=== PATIENT | female | born 1940 | race Caucasian/White ===

== ENCOUNTER 2018-09-08 10:43 | Emergency (ER) | payer MEDICARE ==
[2018-09-08] MEDS ORDERED: fentaNYL 100 MCG/2 ML SDV IVPUSH ONE (11:11)
[2018-09-08] MEDS ORDERED: Metoclopramide 10 MG/2 ML SDV IVPUSH ONE (11:11)
[2018-09-08] MEDS ORDERED: Sodium Chloride 0.9% 10 ML Syringe FLUSH PRN (11:11)
--- NOTE | 2018-09-08 11:39 | EDM.PDOC ---
ED HPI GENERAL MEDICAL PROBLEM - General Chief Complaint: Lower Extremity Injury/Pain Stated Complaint: FALL FROM WHEELCHAIR Time Seen by Provider: 09/08/18 11:05 Source of Information: Reports: Patient, Fpc Records History Limitations: Reports: Physical Impairment, Other (dementia at baseline ) - History of Present Illness INITIAL COMMENTS - FREE TEXT/NARRATIVE: 78-year-old female presents via EMS from [facility] this morning. Nursing reported a fall on due to attempt to self transfer from chair to recliner. Nursing staff states mechanical fall and patient is unable to bear weight and transfer self. Patient has not walked since fall on . Due to worsening swelling on her right ankle, pain in her right upper leg along with chest pain she is transverse to the ER this morning for evaluation. Patient unfortunately is a fairly poor historian is baseline multiple sclerosis and likely underlying dementia. She does answer yes or no questions appropriately but unable to give details regarding her fall or current concerns. Patient is asked to take a deep breath she does state she does have right-sided rib pain with deep respirations. Patient appears uncomfortable lying on the gurney. Bruising noted to the right lateral forehead , right anterior chest, right anterior abdomen, pelvis, thigh and right ankle swelling noted on cursory exam at bedside. - Related Data Allergies Allergy/AdvReac Type Severity Reaction Status Date / Time carbamazepine [From Tegretol] AdvReac Other Verified 09/08/18 10:59 codeine AdvReac Other Verified 09/08/18 10:59 valproic acid [From Depakene] AdvReac Other Verified 09/08/18 10:59 Home Meds: Home Meds Acetaminophen [Tylenol Arthritis Pain] 650 mg PO Q6HR 09/08/18 [History] Acetaminophen/HYDROcodone [Converse 325-5 MG] 1 tab PO Q6H PRN 2 Days #20 tab 09/08 [Rx] Alum Hydrox/Mag Hydrox/Simeth [Maalox Advanced] 30 ml PO ASDIRECTED PRN [History] Aspirin [Halfprin] 81 mg PO DAILY 09/08/18 [History] Baclofen 10 mg PO TID 09/08/18 [History] Bisacodyl [Gentle Laxative] 10 mg RC ASDIRECTED PRN 09/08/18 [History] Calcium Carbonate/Vitamin D3 [Calcium Carbonate/Vitamin D 600 MG-200 Unit] 1 tab PO DAILY 09/08/18 [History] Citalopram Hydrobromide [Celexa] 20 mg PO DAILY 09/08/18 [History] Dextromethorphan/guaiFENesin [Robitussin DM] 10 ml PO ASDIRECTED PRN 09/08/18 [ History] Docusate Sodium 100 mg PO DAILY 09/08/18 [History] Lisinopril 5 mg PO DAILY 09/08/18 [History] Loperamide [Imodium] 4 mg PO TID PRN 09/08/18 [History] Lutein/Minerals/Vit A,C & E [Ocuvite] 1 tab PO BID 09/08/18 [History] Magnesium Hydroxide [Milk of Magnesia] 30 ml PO TID PRN 09/08/18 [History] Multivitamin with Minerals [Multiple Vitamin] 1 tab PO DAILY 09/08/18 [History] Oxybutynin Chloride [Ditropan Xl] 1 mg PO DAILY 09/08/18 [History] Polyethylene Glycol 3350 17 gm PO DAILY 09/08/18 [History] Simvastatin 10 mg PO BEDTIME 09/08/18 [History] Past Medical History HEENT History: Reports: Impaired Vision Cardiovascular History: Reports: Hypertension Genitourinary History: Reports: Urinary Incontinence ARTILLERY SPECIALIST History: Reports: Musculoskeletal History: Reports: Other (See Below) Other Musculoskeletal History: . Neurological History: Reports: MS, Other (See Below) (non ambulatory) Psychiatric History: Reports: Anxiety, Depression - Past Surgical History Cardiovascular Surgical History: Reports: None GI Surgical History: Reports: Appendectomy Musculoskeletal Surgical History: Reports: None Dermatological Surgical History: Reports: None Social & Family History - Tobacco Use Smoking Status *Q: Former Smoker Used Tobacco, but Quit: No Month/Year Tobacco Last Used: 1999 Second Hand Smoke Exposure: No - Caffeine Use Caffeine Use: Reports: Coffee - Recreational Drug Use Recreational Drug Use: No Review of Systems - Review of Systems Review Of Systems: Unable To Obtain (due to patient dementia and able to answer yes and no questions unable to given details and unsure validity of responses) ED EXAM, GENERAL - Physical Exam Exam: See Below Exam Limited By: Physical Impairment (Dementia but follows simple commands) General Appearance: Alert, WD/WN, Mild Distress, Other (GCS 15 ) Eye Exam: Bilateral Eye: EOMI, PERRL Ears: Normal External Exam, Normal Canal, Hearing Grossly Normal, Normal TMs Ear Exam: Bilateral Ear: Auricle Normal, Canal Normal, TM normal Nose: Normal Inspection, Normal Mucosa, No Blood Throat/Mouth: Normal Inspection (dry mouth ), Normal Lips, Normal Teeth, Normal Gums, Normal Oropharynx, Normal Voice, No Airway Compromise Head: Normocephalic (right lateral forehead contusion without hematoma) Neck: Normal Inspection, Supple, Non-Tender, Limited Range of Motion (denies pain but baseline limited ROM noted) Respiratory/Chest: Decreased Breath Sounds (splinting respirations noted), Rhonchi, Accessory Muscle Use, Splinting, Other (significnat pain to palpation right upper chest wall, implant contracture noted. Unable to palpation ribs or intercostal muscle in area for discomfort. Bruising noted. ) Cardiovascular: Normal Peripheral Pulses, Regular Rate, Rhythm, Systolic Murmur GI/Abdominal: Normal Bowel Sounds, Soft, No Distention, Tender (right upper. mid and lower abdomen) Back Exam: Normal Inspection, Decreased Range of Motion (at baseline), Paraspinal Tenderness. No: Vertebral Tenderness Extremities: Normal Range of Motion, Non-Tender, No Pedal Edema, Normal Capillary Refill, Joint Swelling (right ankle with bruising), Leg Pain ( bruising and pain right pelvis, proximal and distal femur ), Limited Range of Motion (patient able to raise each leg of the bed inches. ). No: Arm Pain Neurological: Alert, Oriented, CN II-XII Intact, No Motor/Sensory Deficits (no obvious focal sensory deficits and motor limited by pain ), Memory Loss Remote Events, Memory Loss Recent Events, Abnormal Gait (Lying on melyssa lift chair, question baseline ambulation status). No: Sensory/Motor Deficit Psychiatric: Normal Mood, Flat Affect, Other (dementia but attempts to smile ) Skin Exam: Warm, Dry, Intact, Normal Color ED TRAUMA EXTREMITY PROCEDURES - Splinting Right Lower Extremity Pre-Procedure NV Status: Normal Post-Procedure NV Status: Normal Splint Design: Stirrup Applied & Form Fitted By: Provider, Nurse Provider Post-Splint Application NV Check: NV Status Normal, Good Position Complications: No EKG INTERPRETATION EKG Date: 09/08/18 Time: 13:22 Rhythm: Other (PVCs noted every 4th beat) Rate (Beats/Min): 78 [place]: Normal P-Wave: Present QRS: Normal ST-T: Normal QT: Normal Comparison: NA - No Prior EKG (Artifact at baseline Multiple PVCs noted every 4th beat) Course - Vital Signs Last Recorded V/S: Last Vital Signs Temp 36.9 C 09/08/18 10:54 Pulse 79 09/08/18 13:55 Resp 24 H 09/08/18 10:54 BP 119/46 L 09/08/18 13:55 Pulse Ox 92 L 09/08/18 13:55 - Orders/Labs/Meds Orders: Active Orders 24 hr Category Date Time Status EKG Documentation Completion [RC] ASDIRECTED Care 09/08/18 11:48 Active Insert Urinary Catheter [OM.PC] Q24H Care 09/08/18 12:00 Ordered Peripheral IV Care [RC] . DIRECTED Care 09/08/18 11:12 Active RT End Tidal CO2 Monitoring [RC] ASDIRECTED Care 09/08/18 11:11 Active Splinting [RC] ASDIRECTED Care 09/08/18 13:01 Active Urinary Catheter Assessment [RC] ASDIRECTED Care 09/08/18 11:51 Active Vital Signs [RC] PFP Care 09/08/18 13:24 Active CULTURE URINE [RM] Stat Lab 09/08/18 11:48 Ordered UA W/MICROSCOPIC [URIN] Stat Lab 09/08/18 11:48 Ordered Peripheral IV Insertion Adult [OM.PC] Urgent Oth 09/08/18 11:11 Ordered EKG 12 Lead [EK] Routine Ther 09/08/18 11:48 Ordered Labs: Laboratory Tests 09/08/18 09/08/18 09/08/18 Range/Units 11:34 11:34 11:51 WBC 9.4 (4.5-11.0) K/uL RBC 4.35 (3.30-5.50) M/uL Hgb 12.1 (12.0-15.0) g/dL Hct 38.3 (36.0-48.0) % MCV 88 (80-98) fL MCH 28 (27-31) pg MCHC 32 (32-36) % Plt Count 154 (150-400) K/uL Neut % (Auto) 75 H (36-66) % Lymph % (Auto) 11 L (24-44) % [place] % (Auto) 11 H (2-6) % Eos % (Auto) 2 (2-4) % Baso % (Auto) 0 (0-1) % Sodium 142 (140-148) mmol/L Potassium 3.9 (3.6-5.2) mmol/L Chloride 105 (100-108) mmol/L Carbon Dioxide 28 (21-32) mmol/L Anion Gap 9.2 (5.0-14.0) mmol/L BUN 22 H (7-18) mg/dL Creatinine 0.8 (0.6-1.0) mg/dL Est Cr Clr Drug Dosing 43.03 mL/min Estimated GFR (MDRD) > 60 (>60) Glucose 120 H (74-106) mg/dL Calcium 9.2 (8.5-10.1) mg/dL Magnesium 1.9 (1.8-2.4) mg/dL Total Bilirubin 0.9 D (0.2-1.0) mg/dL AST 18 (15-37) U/L ALT 23 (12-78) U/L Alkaline Phosphatase 90 (46-116) U/L Creatine Kinase 44 (26-192) U/L Total Protein 7.0 (6.4-8.2) g/dL Albumin 3.2 L (3.4-5.0) g/dL Globulin 3.8 H (2.3-3.5) g/dL Albumin/Globulin Ratio 0.8 L (1.2-2.2) Meds: Medications Discontinued Medications Generic Name Dose Route Start Last Admin Trade Name Freq PRN Reason Stop Dose Admin Hydrocodone Bitart/Acetaminophen 1 tab 09/08/18 12:51 09/08/18 13:11 Converse 325-5 Mg PO 09/08/18 12:52 1 tab ONETIME ONE Administration Fentanyl 25 mcg 09/08/18 11:11 09/08/18 11:36 Sublimaze IVPUSH 09/08/18 11:12 25 mcg ONETIME ONE Administration Sodium Chloride 1,000 mls @ 500 mls/hr 09/08/18 12:00 09/08/18 12:16 Normal Saline IV 500 mls/hr ASDIRECTED YEIMI Administration Metoclopramide HCl 10 mg 09/08/18 11:11 09/08/18 11:36 Reglan IVPUSH 09/08/18 11:12 10 mg ONETIME ONE Administration Sodium Chloride 10 ml 09/08/18 11:11 09/08/18 11:32 Saline Flush FLUSH 10 ml ASDIRECTED PRN Administration Keep Vein Open - Radiology Interpretation Free Text/Narrative:: CXR PA/LAT: NO acute cardiopulmonary findings noted. Mild cardiomegaly and right hemidiaphragm elevation. Pelvis XR: degenerative changes in the lower lumbar spine and both hips are identified. No acute fracture or subluxation is identified. Right Hip/Pelvis XR: Femoral head is seated within the acetabulum. Degenerative changes the right hip are identified. No acute fracture or subluxation or dislocation is identified. Right Knee XR: overlying material obscures bony detail. Moderate narrowing of the medial compartment is identified. No fracture or subluxation is identified. Right Ankle XR: Fracture of the distal fibula is identified. Only mildly displaced. Soft tissue swelling is identified bilaterally. Osteopenia degenerative changes are identified. Small plantar calcaneal spur is noted. - Re-Assessments/Exams Free Text/Narrative Re-Assessment/Exam: Family members were updated regarding the x-ray findings. She does have a mildly displaced right distal fibula fracture. I explained this will be splinted and may need follow-up with orthopedist in 2 weeks for cast placement. Immobilization with splint/cast will likely be definitive care for this type of fracture and baseline mobility issues. Chest x-ray is ordered and pending. Laboratory studies reveal no acute concerning findings. Patient will be allowed to eat family did bring a picnic lunch which she can enjoy. 09/08/18 12:49 Departure - Departure Time of Disposition: 14:39 Disposition: DC/Tfer to [employer] [facility] Condition: Good Clinical Impression: Closed right ankle fracture, Fall, Multiple contusions, Contusion of thigh, Contusion of hip, Fracture of fibula, Fracture of ankle - Discharge Information Prescriptions: Acetaminophen/HYDROcodone [Converse 325-5 MG] 1 tab PO Q6H PRN 2 Days #20 tab PRN Reason: Pain (Severe 7-10) Instructions: Contusion, Ankle Fracture, Cast or Splint Care, Adult Referrals: PCP,None [Primary Care Provider] - Gurinder Butler MD [Physician] - 2 Weeks (Call for appointment in 7-14 days regarding cast placement to allow for healing of distal fibula fracture. ) Forms: ED Department Discharge Additional Instructions: 1. Tylenol 500-1000mg every 6-8hours for mild to moderate pain (per assisted living protocol). 2. Naproxen 500mg with food for inflammation pain and swelling if ok with current medications and PCP (may delay bone healing) 3. Converse 1 tablet every 6 hours as needed for moderate to severe pain. 4. Foot care and ensure no pressure sore with splint placement with repositioning as needed. 5. Call PCP for recheck in then next 1-2 weeks sooner if additional symptoms or concerns. 6. Call Orthopedic clinic for recheck in 1-2 weeks to discuss cast placement for distal fibula fracture. 7. Limited (toe touch) weight bearing only as needed to prevent additional falls. 8. Keep splint clean and dry. Wrap with plastic for bathing or perform bed baths per policy. 9. Keep Right leg elevated above heart as much as possible, avoid foot dangling. 10. Encourage deep breathing and coughing which will decrease risk of pneumonia due to chest wall injury. - Problem List & Annotations (1) Closed right ankle fracture SNOMED Code(s): 86528896 Code(s): S82.891A - OTH FRACTURE OF RIGHT LOWER LEG, INIT FOR CLOS FX Status: Acute (2) Contusion of hip SNOMED Code(s): 50522017 Code(s): S70.00XA - CONTUSION OF UNSPECIFIED HIP, INITIAL ENCOUNTER Status : Acute (3) Contusion of thigh SNOMED Code(s): 89333170 Code(s): S70.10XA - CONTUSION OF UNSPECIFIED THIGH, INITIAL ENCOUNTER Status: Acute (4) Fall SNOMED Code(s): 5912578, 982597801 Code(s): W19.XXXA - UNSPECIFIED FALL, INITIAL ENCOUNTER Status: Acute (5) Fracture of ankle SNOMED Code(s): 84311441 Code(s): S82.899A - OTH FRACTURE OF UNSP LOWER LEG, INIT FOR CLOS FX Status : Acute (6) Fracture of fibula SNOMED Code(s): 90095338 Code(s): S82.409A - UNSP FRACTURE OF SHAFT OF UNSP FIBULA, INIT FOR CLOS FX Status: Acute (7) Multiple contusions SNOMED Code(s): 696197649 Code(s): T07.XXXA - UNSPECIFIED MULTIPLE INJURIES, INITIAL ENCOUNTER Status : Acute - My Orders Last 24 Hours: My Active Orders 09/08/18 11:11 RT End Tidal CO2 Monitoring [RC] ASDIRECTED Peripheral IV Insertion Adult [OM.PC] Urgent 09/08/18 11:12 Peripheral IV Care [RC] . DIRECTED 09/08/18 11:48 EKG Documentation Completion [RC] ASDIRECTED CULTURE URINE [RM] Stat UA W/MICROSCOPIC [URIN] Stat EKG 12 Lead [EK] Routine 09/08/18 11:51 Urinary Catheter Assessment [RC] ASDIRECTED 09/08/18 12:00 Insert Urinary Catheter [OM.PC] Q24H 09/08/18 13:01 Splinting [RC] ASDIRECTED 09/08/18 13:24 Vital Signs [RC] PFP - Assessment/Plan Last 24 Hours: My Active Orders 09/08/18 11:11 RT End Tidal CO2 Monitoring [RC] ASDIRECTED Peripheral IV Insertion Adult [OM.PC] Urgent 09/08/18 11:12 Peripheral IV Care [RC] . DIRECTED 09/08/18 11:48 EKG Documentation Completion [RC] ASDIRECTED CULTURE URINE [RM] Stat UA W/MICROSCOPIC [URIN] Stat EKG 12 Lead [EK] Routine 09/08/18 11:51 Urinary Catheter Assessment [RC] ASDIRECTED 09/08/18 12:00 Insert Urinary Catheter [OM.PC] Q24H 09/08/18 13:01 Splinting [RC] ASDIRECTED 09/08/18 13:24 Vital Signs [RC] PFP Plan: 1. Tylenol 500-1000mg every 6-8hours for mild to moderate pain (per assisted living protocol). 2. Naproxen 500mg with food for inflammation pain and swelling if ok with current medications and PCP (may delay bone healing) 3. Converse 1 tablet every 6 hours as needed for moderate to severe pain. 4. Foot care and ensure no pressure sore with splint placement with repositioning as needed. 5. Call PCP for recheck in then next 1-2 weeks sooner if additional symptoms or concerns. 6. Call Orthopedic clinic for recheck in 1-2 weeks to discuss cast placement for distal fibula fracture. 7. Limited (toe touch) weight bearing only as needed to prevent additional falls. 8. Keep splint clean and dry. Wrap with plastic for bathing or perform bed baths per policy. 9. Keep Right leg elevated above heart as much as possible, avoid foot dangling. 10. Encourage deep breathing and coughing which will decrease risk of pneumonia due to chest wall injury.
[2018-09-08] MEDS ORDERED: Sodium Chloride 0.9% 1,000 ML IV SCH (12:00)
[2018-09-08] MEDS ORDERED: Acetaminophen/HYDROcodone 325-5 MG Tab PO ONE (12:51)
--- NOTE | 2018-09-08 15:45 | CRLCR ---
Indication: Fall last . Technique: Two views of the right hip were obtained. Comparison: None Findings: The femoral head is seated within the acetabulum. Degenerative changes of the right hip are identified. No acute fracture or subluxation is identified. Impression: Degenerative change. Dictated by Stacey Garcia MD @ Sep 08 2018 12:17PM Signed by Dr. Stacey Garcia @ Sep 08 2018 12:18PM
--- NOTE | 2018-09-08 15:45 | CRLCR ---
Indication: Right-sided chest pain after falling 2 days ago. Technique: PA and lateral views the chest were obtained. Comparison: None Findings: The heart is borderline in size. The right hemidiaphragm is elevated. Bilateral calcified breast implants are identified. No infiltrate or pneumothorax is identified. Impression: No acute cardiopulmonary process. Dictated by Stacey Garcia MD @ Sep 08 2018 1:23PM Signed by Dr. Stacey Garcia @ Sep 08 2018 1:24PM
--- NOTE | 2018-09-08 15:45 | CRLCR ---
Indication: Fell last . Technique: A single AP view of the right knee was obtained. Comparison: None Findings: Overlying material obscures bony detail. Moderate narrowing of the medial compartment is identified. No fracture or subluxation is identified. Impression: No acute fracture. Dictated by Stacey Garcia MD @ Sep 08 2018 12:13PM Signed by Dr. Stacey Garcia @ Sep 08 2018 12:14PM
--- NOTE | 2018-09-08 15:45 | CRLCR ---
Indication: Right ankle pain. Status post fall. Technique: Three views of the right ankle were obtained. Comparison: None Findings: A fracture of the distal fibula is identified. This is only mildly displaced. Soft tissue swelling is identified laterally. Osteopenia and degenerative changes are identified. A small plantar calcaneal spur is identified. Impression: Distal fibular fracture. Dictated by Stacey Garcia MD @ Sep 08 2018 12:16PM Signed by Dr. Stacey Garcia @ Sep 08 2018 12:17PM
--- NOTE | 2018-09-08 15:45 | CRLCR ---
Indication: Fell last . Right hip pain. Technique: An AP view of the pelvis was obtained. Comparison: None Findings: Degenerative changes of the lower lumbar spine and both hips are identified. No acute fracture or subluxation is identified. Impression: Degenerative change. Dictated by Stacey Garcia MD @ Sep 08 2018 12:14PM Signed by Dr. Stacey Garcia @ Sep 08 2018 12:15PM
== END 2018-09-08 15:57 ==
LOC: JP.ED 10:43
DX: S82.831A Other fracture of upper and lower end of right fibula, initial encounter for closed fracture (principal); S70.01XA Contusion of right hip, initial encounter; S00.83XA Contusion of other part of head, initial encounter; S20.211A Contusion of right front wall of thorax, initial encounter; I10 Essential (primary) hypertension; S70.11XA Contusion of right thigh, initial encounter; F41.9 Anxiety disorder, unspecified; F32.9 Major depressive disorder, single episode, unspecified; Z87.891 Personal history of nicotine dependence; Z88.5 Allergy status to narcotic agent; Z88.8 Allergy status to other drugs, medicaments and biological substances; Z79.899 Other long term (current) drug therapy; W18.39XA Other fall on same level, initial encounter
CPT/HCPCS: 29515; 36415; 71046; 72170; 73502; 73560; 73610; 80053; 82550; 83735; 85025; 93005; 96361; 96374; 96375; 99285; A9270; J2765; J3010; J7030

== ENCOUNTER 2019-06-15 05:04 | Emergency (ER) | payer MEDICARE ==
--- NOTE | 2019-06-15 05:37 | EDM.PDOC ---
ED HPI GENERAL MEDICAL PROBLEM - General Chief Complaint: Head Injury Stated Complaint: ACCIDENT VIA [facility] Time Seen by Provider: 06/15/19 05:20 Source of Information: Reports: EMS, [facility] Records History Limitations: Reports: No Limitations - History of Present Illness INITIAL COMMENTS - FREE TEXT/NARRATIVE: 79-year-old female who was sitting in her recliner when she stumbled forward striking her forehead on the floor. She was found in a pool of blood on the floor, no specific complaints. It was felt that she was on the floor for approximately 10 minutes. No significant confusion, but denies any headache and just mild posterior neck pain, she is not on anticoagulants. There appeared to be a fairly large amount of blood on the floor, her hair was matted with blood and it was difficult to see where the injury was. She was dressed with bandages and sent into the emergency room. 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) Right Upper Head Pain Score (Numeric/FACES): 6 - Related Data Allergies Allergy/AdvReac Type Severity Reaction Status Date / Time carbamazepine [From Tegretol] AdvReac Other Verified 06/15/19 05:41 codeine AdvReac Other Verified 06/15/19 05:41 valproic acid [From Depakene] AdvReac Other Verified 06/15/19 05:41 Home Meds: Home Meds Acetaminophen [Tylenol Arthritis Pain] 650 mg PO Q6HR 09/08/18 [History] Alum Hydrox/Mag Hydrox/Simeth [Maalox Advanced] 30 ml PO ASDIRECTED PRN [History] Aspirin [Halfprin] 81 mg PO DAILY 09/08/18 [History] Baclofen 10 mg PO TID 09/08/18 [History] Bisacodyl [Gentle Laxative] 10 mg RC ASDIRECTED PRN 09/08/18 [History] Calcium Carbonate/Vitamin D3 [Calcium Carbonate/Vitamin D 600 MG-200 Unit] 1 tab PO DAILY 09/08/18 [History] Citalopram Hydrobromide [Celexa] 20 mg PO DAILY 09/08/18 [History] Dextromethorphan/guaiFENesin [Robitussin DM] 10 ml PO ASDIRECTED PRN 09/08/18 [ History] Docusate Sodium 100 mg PO DAILY 09/08/18 [History] Loperamide [Imodium] 4 mg PO TID PRN 09/08/18 [History] Lutein/Minerals/Vit A,C & E [Ocuvite] 1 tab PO BID 09/08/18 [History] Magnesium Hydroxide [Milk of Magnesia] 30 ml PO TID PRN 09/08/18 [History] Multivitamin with Minerals [Multiple Vitamin] 1 tab PO DAILY 09/08/18 [History] Oxybutynin Chloride [Ditropan Xl] 5 mg PO DAILY 09/08/18 [History] Simvastatin 10 mg PO BEDTIME 09/08/18 [History] lisinopriL [Lisinopril] 5 mg PO DAILY 09/08/18 [History] polyethylene glycoL 3350 [Polyethylene Glycol 3350] 17 gm PO DAILY 09/08/18 [ History] Albuterol/Ipratropium [DuoNeb 3.0-0.5 MG/3 ML] 3 ml INH Q6HR PRN 06/15/19 [ History] Past Medical History HEENT History: Reports: Impaired Vision Cardiovascular History: Reports: Hypertension Respiratory History: Reports: None Gastrointestinal History: Reports: None Genitourinary History: Reports: Urinary Incontinence 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: Musculoskeletal History: Reports: Fracture, Other (See Below) Other Musculoskeletal History: right ankle fx 09/08/18 Neurological History: Reports: MS, Other (See Below) Psychiatric History: Reports: Anxiety, Depression Endocrine/Metabolic History: Reports: None Hematologic History: Reports: None Immunologic History: Reports: None Oncologic (Cancer) History: Reports: None - Past Surgical History Cardiovascular Surgical History: Reports: None GI Surgical History: Reports: Appendectomy Musculoskeletal Surgical History: Reports: None Dermatological Surgical History: Reports: None Social & Family History - Caffeine Use Caffeine Use: Reports: Coffee ED ROS GENERAL - Review of Systems Review Of Systems: See Below Constitutional: Denies: Fever, Chills HEENT: Denies: Vision Change Respiratory: Denies: Shortness of Breath Cardiovascular: Denies: Chest Pain GI/Abdominal: Denies: Nausea, Vomiting Musculoskeletal: Reports: Other (Posterior neck pain) Skin: Reports: Other (There is an obvious laceration or injury to the scalp) Neurological: Denies: Headache ED EXAM, HEAD INJURY - Physical Exam Exam: See Below Exam Limited By: No Limitations General Appearance: Alert, No Apparent Distress Head: Other (The top of her head and upper hairline and forehead was entirely covered with a large clot of blood underneath bandages. After this was slowly cleaned and her scalp was cleaned, a small puncture wound with a avulsion and maceration was found on the upper anterior forehead, total wound was about 1 x 2 cm there was no active bleeding) Nexus Criteria: Posterior, Midline Cervical Tenderness Eyes: Bilateral Eye: EOMI, PERRL Neck: Other (Minimal posterior tenderness to palpation, no focal tenderness) Respiratory: No Respiratory Distress Cardiovascular: Regular Rate, Rhythm Neurologic: No Motor/Sensory Deficits, Normal Mood/Affect - [place] Coma Score Best Eye Response (Bautista): (4) Open Spontaneously Best Verbal Response (Pansey): (5) Oriented Best Motor Response (Pansey): (6) Obeys Commands Course - Vital Signs Last Recorded V/S: Last Vital Signs Temp 96.1 F L 06/15/19 05:17 Pulse 77 06/15/19 06:33 Resp 22 H 06/15/19 06:33 BP 140/73 06/15/19 06:33 Pulse Ox 94 L 06/15/19 06:33 - Orders/Labs/Meds Labs: Laboratory Tests 06/15/19 Range/Units 05:46 WBC 11.6 H (4.5-11.0) K/uL RBC 4.65 (3.30-5.50) M/uL Hgb 12.4 (12.0-15.0) g/dL Hct 40.7 (36.0-48.0) % MCV 88 (80-98) fL MCH 27 (27-31) pg MCHC 31 L (32-36) % Plt Count 164 (150-400) K/uL Neut % (Auto) 83 H (36-66) % Lymph % (Auto) 10 L (24-44) % [place] % (Auto) 6 (2-6) % Eos % (Auto) 1 L (2-4) % Baso % (Auto) 0 (0-1) % Meds: Medications Discontinued Medications Generic Name Dose Route Start Last Admin Trade Name Freq PRN Reason Stop Dose Admin Bacitracin 1 dose 06/15/19 05:38 06/15/19 06:34 Bacitracin Oint 1 Gm TOP 06/15/19 05:39 1 dose ONETIME ONE Administration - Re-Assessments/Exams Free Text/Narrative Re-Assessment/Exam: 06/15/19 06:17 After extensive cleaning of his scalp and hair, a small macerated puncture wound was found on the upper anterior middle forehead. There was really no laceration to repair. Patient was sent back for a head and cervical spine CT scan. These were both without contrast. 06/15/19 06:50 Hemoglobin was normal, head CT was negative and cervical spine negative. A nice wraparound dressing was applied to the forehead which should be kept on for the next 10 hours. The wound should be kept covered and clean while healing. Departure - Departure Time of Disposition: 08:38 Disposition: DC/[facility] to [facility] Clinical Impression: Laceration of skin of scalp Qualifiers: Encounter type: initial encounter Qualified Code(s): S01.01XA - Laceration without foreign body of scalp, initial encounter - Discharge Information Instructions: Head Injury, Adult, [id number] Referrals: PCP,None [Primary Care Provider] - Forms: ED Department Discharge Care Plan Goals: Keep wound covered and clean while healing. Tylenol for aches and pains, cool compresses to sore areas may be helpful as well. Return if concerns. Sepsis Event Note - Evaluation Sepsis Screening Result: No Definite Risk - Focused Exam Date Exam was Performed: 06/17/19 Time Exam was Performed: 08:30
[2019-06-15] MEDS ORDERED: Bacitracin Oint 1 GM U/D Packet TOP ONE (05:38)
--- NOTE | 2019-06-15 06:39 | CRLCT ---
INDICATION: Fall TECHNIQUE: CT head without contrast. COMPARISON: FINDINGS: CSF spaces: Within normal limits for age. Brain parenchyma: The webb-white differentiation is normal. No sign of mass, hemorrhage, or midline shift. Periventricular white matter changes consistent with chronic microvascular disease. Diffuse volume loss. Skull base and calvarium: The visualized paranasal sinuses and mastoid air cells demonstrate no acute or significant findings. The visualized orbits are grossly unremarkable. No skull fractures. Frontal scalp hematoma. IMPRESSION: Frontal scalp hematoma with no associated fractures or evidence of acute intracranial trauma. Periventricular white matter changes consistent with chronic microvascular disease. Diffuse volume loss. Dictated by Hemanth Martin MD @ 06/15/2019 6:37:37 AM Please note that all CT scans at this facility use dose modulation, iterative reconstruction, and/or weight-based dosing when appropriate to reduce radiation dose to as low as reasonably achievable. Dictated by: Hemanth Martin MD @ 06/15/2019 06:37:40 (Electronically Signed)
--- NOTE | 2019-06-15 06:46 | CRLCT ---
INDICATION: Fall TECHNIQUE: CT cervical spine without contrast. COMPARISON: None FINDINGS: Vertebral alignment: Alignment is normal. Vertebrae: There are no acute fractures. Compression deformities T3 and T4 most likely chronic. Discs and facet joints: Disc spaces and facets are within normal limits. Extraspinal findings: Prevertebral soft tissues, visualized airway, and visualized lungs are unremarkable. IMPRESSION: No evidence of acute cervical spine trauma. Dictated by Hemanth Martin MD @ 06/15/2019 6:45:17 AM Please note that all CT scans at this facility use dose modulation, iterative reconstruction, and/or weight-based dosing when appropriate to reduce radiation dose to as low as reasonably achievable. Dictated by: Hemanth Martin MD @ 06/15/2019 06:45:25 (Electronically Signed)
== END 2019-06-15 08:28 ==
LOC: JP.ED 05:04
DX: S01.01XA Laceration without foreign body of scalp, initial encounter (principal); I10 Essential (primary) hypertension; F41.9 Anxiety disorder, unspecified; F32.9 Major depressive disorder, single episode, unspecified; Z88.8 Allergy status to other drugs, medicaments and biological substances; Z88.5 Allergy status to narcotic agent; Z79.899 Other long term (current) drug therapy; Z79.82 Long term (current) use of aspirin; W08.XXXA Fall from other furniture, initial encounter
CPT/HCPCS: 36415; 70450; 72125; 85025; 99283; 99285-25

== ENCOUNTER 2019-08-13 17:58 | Emergency (ER) | payer MEDICARE ==
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
--- NOTE | 2019-08-13 19:37 | CRLCT ---
INDICATION: Fall, forehead injury and neck pain. TECHNIQUE: CT cervical spine without contrast. COMPARISON: Cervical spine CT 06/15/2019 FINDINGS: Vertebrae: Old-appearing compression fractures are redemonstrated at the T3 and T4 level which appear similar. There is a subacute compression type fracture of the T2 vertebral body with slight decrease in vertebral body height compared to the prior examination and increasing sclerosis. A subacute fracture is also identified at the body of the C2 vertebral body with a more coronal fracture plane. Fracture line has partially healed since the prior examination (current series 7, image 35; better seen on 06/15/2019 CT series 9, image 37). Age indeterminate (mild adjacent sclerosis; subacute?) compression type fracture of T5, partially included on the exam. Discs and facet joints: Multilevel facet hypertrophy without significant central spinal canal stenosis. Extraspinal findings: Mild mosaic attenuation pattern within the lungs. Atherosclerosis. IMPRESSION: 1. Subacute fracture of the C2 vertebral body showing partial interval healing compared to the prior examination. Alignment near anatomic. 2. Subacute compression type fracture of the T2 vertebral body showing mild increase in sclerosis and loss of height compared to the prior exam. 3. Old-appearing compression type fractures of T3 and T4 with more age-indeterminate compression fracture of the T5 vertebral body, question subacute. Discussed with Dr. Valdes at 1929 on 08/13/2019 Please note that all CT scans at this facility use dose modulation, iterative reconstruction, and/or weight-based dosing when appropriate to reduce radiation dose to as low as reasonably achievable. Dictated by Vega Garcia MD @ Aug 13 2019 7:11PM Signed by Dr. Vega Garcia @ Aug 13 2019 7:35PM
--- NOTE | 2019-08-13 19:39 | CRLCT ---
INDICATION: Fall, forehead injury TECHNIQUE: CT head without contrast. COMPARISON: Head CT 06/15/2019 FINDINGS: CSF spaces: Within normal limits for age. Brain parenchyma: Diffuse cerebral atrophy with extensive low-density in the deep white matter. Skull base and calvarium: The visualized paranasal sinuses and mastoid air cells demonstrate no acute or significant findings. The visualized orbits are grossly unremarkable. No skull fractures. Frontal scalp hematoma. Atherosclerosis. IMPRESSION: 1. Frontal scalp hematoma without calvarial fracture or intracranial bleed. 2. Cerebral atrophy with nonspecific white matter disease, likely microangiopathy. Please note that all CT scans at this facility use dose modulation, iterative reconstruction, and/or weight-based dosing when appropriate to reduce radiation dose to as low as reasonably achievable. Dictated by Vega Garcia MD @ Aug 13 2019 7:11PM Signed by Dr. Vega Garcia @ Aug 13 2019 7:37PM
[2019-08-13] MEDS ORDERED: Lidocaine 1% 20 ML MDV INJECT ONE (19:54)
[2019-08-13] MEDS ORDERED: Bacitracin Oint 1 GM U/D Packet TOP ONE (19:54)
== END 2019-08-13 21:51 | disposition home or self-care (01) ==
LOC: JP.ED 17:58
DX: S01.01XA Laceration without foreign body of scalp, initial encounter (principal); I10 Essential (primary) hypertension; F41.9 Anxiety disorder, unspecified; F32.9 Major depressive disorder, single episode, unspecified; Z88.5 Allergy status to narcotic agent; Z88.8 Allergy status to other drugs, medicaments and biological substances; Z79.82 Long term (current) use of aspirin; Z79.899 Other long term (current) drug therapy; G35 Multiple sclerosis; W06.XXXA Fall from bed, initial encounter
CPT/HCPCS: 12001; 12011; 51798; 70450; 72125; 99283; 99284; J2001

== ENCOUNTER 2020-02-08 17:16 | Inpatient (IN) | payer MEDICARE ==
[2020-02-08] MEDS ORDERED: Acetaminophen 325 MG Tab PO PRN ×3 (17:59→22:42)
--- NOTE | 2020-02-08 18:19 | EDM.PDOC ---
ED HPI GENERAL MEDICAL PROBLEM - General Chief Complaint: Respiratory Problem Stated Complaint: [facility] Time Seen by Provider: 02/08/20 17:58 Source of Information: Reports: RN Notes Reviewed, Other History Limitations: Reports: Combative/Threatening - History of Present Illness INITIAL COMMENTS - FREE TEXT/NARRATIVE: Patient has had high risk exposure in the senior care started complaining of shortness of breath today was tested for Covid on Monday however the results were not available to the senior care still pending. Patient is combative and not cooperative does have a history of multiple sclerosis has had issues with altered mental status in the past. She is found to be hypoxic O2 saturation around 86% refuses to wear pulse ox refuses to wear oxygen. Did discuss the case with her power of associate attorney they would like to have her be full code and do all life sustaining measures they felt it was okay to restrain her for pulse ox as well as medical treatment this is documented by 2 nurses and found in the nursing notes, sure when I asked her how she is feeling she states she feels fine does not want to be here and wants to go home is having no issues - Related Data Allergies Allergy/AdvReac Type Severity Reaction Status Date / Time carbamazepine [From Tegretol] AdvReac Unknown Other Verified 02/08/20 17:47 codeine AdvReac Unknown Other Verified 02/08/20 17:47 valproic acid [From Depakene] AdvReac Unknown Other Verified 02/08/20 17:47 Home Meds: Home Meds Acetaminophen [Tylenol Arthritis Pain] 650 mg PO Q6HR 09/08/18 [History] Alum Hydrox/Mag Hydrox/Simeth [Maalox Advanced] 30 ml PO ASDIRECTED PRN 09/08/18 [History] Aspirin [Halfprin] 81 mg PO DAILY 09/08/18 [History] Baclofen 10 mg PO TID 09/08/18 [History] Bisacodyl [Gentle Laxative] 10 mg RC ASDIRECTED PRN 09/08/18 [History] Calcium Carbonate/Vitamin D3 [Calcium Carbonate/Vitamin D 600 MG-200 Unit] 1 tab PO DAILY 09/08/18 [History] Dextromethorphan/guaiFENesin [Robitussin DM] 10 ml PO ASDIRECTED PRN 09/08/18 [History] Docusate Sodium 100 mg PO DAILY 09/08/18 [History] Loperamide [Imodium] 4 mg PO TID PRN 09/08/18 [History] Lutein/Minerals/Vit A,C & E [Ocuvite] 1 tab PO BID 09/08/18 [History] Magnesium Hydroxide [Milk of Magnesia] 30 ml PO TID PRN 09/08/18 [History] Multivitamin with Minerals [Multiple Vitamin] 1 tab PO DAILY 09/08/18 [History] Oxybutynin Chloride [Ditropan Xl] 5 mg PO DAILY 09/08/18 [History] Simvastatin 10 mg PO BEDTIME 09/08/18 [History] lisinopriL [Lisinopril] 5 mg PO DAILY 09/08/18 [History] polyethylene glycoL 3350 [Polyethylene Glycol 3350] 17 gm PO DAILY 09/08/18 [History] Albuterol/Ipratropium [DuoNeb 3.0-0.5 MG/3 ML] 3 ml INH Q6HR PRN 06/15/19 [History] Melatonin 9 mg PO BEDTIME 02/08/20 [History] Sennosides/Docusate Sodium [Senna Plus 8.6-50 mg Tablet] 1 each PO ASDIRECTED 02/08/20 [History] Sertraline HCl 25 mg PO DAILY 02/08/20 [History] busPIRone [Buspar] 10 mg PO TID 02/08/20 [History] traZODone HCl [Trazodone HCl] 100 mg PO BEDTIME 02/08/20 [History] Past Medical History HEENT History: Reports: Impaired Vision Cardiovascular History: Reports: Hypertension Genitourinary History: Reports: Urinary Incontinence 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: Musculoskeletal History: Reports: Fracture, Other (See Below) Other Musculoskeletal History: right ankle fx 09/08/18 Neurological History: Reports: MS, Other (See Below) Psychiatric History: Reports: Anxiety, Depression - Infectious Disease History Infectious Disease History: Reports: Chicken Pox - Past Surgical History HEENT Surgical History: Reports: Cataract Surgery Cardiovascular Surgical History: Reports: None GI Surgical History: Reports: Appendectomy Female Surgical History: Reports: Tubal Ligation Musculoskeletal Surgical History: Reports: None Dermatological Surgical History: Reports: None Social & Family History - Tobacco Use Tobacco Use Status *Q: Unknown Ever Used Tobacco - Caffeine Use Caffeine Use: Reports: Coffee ED ROS GENERAL - Review of Systems Review Of Systems: Unable To Obtain Reason Not Obtained: Uncooperative patient Respiratory: Reports: Shortness of Breath (Per report from senior care Covid test is pending) ED EXAM, GENERAL - Physical Exam Exam: See Below Exam Limited By: Combative/Threatening General Appearance: Alert, No Apparent Distress Respiratory/Chest: No Respiratory Distress, No Accessory Muscle Use, Decreased Breath Sounds, Crackles, Rhonchi Cardiovascular: Regular Rate, Rhythm, No Murmur GI/Abdominal: Soft, Non-Tender Course - Vital Signs Last Recorded V/S: Last Vital Signs Temp 98.7 F 02/08/20 19:28 Pulse 77 02/08/20 20:44 Resp 27 H 02/08/20 20:44 BP 95/64 02/08/20 20:44 Pulse Ox 100 02/08/20 20:44 - Orders/Labs/Meds Orders: Active Orders 24 hr Category Date Time Status Initiate/Renew Non-Violent Restraints (All Ages) Q24H Care 02/08/20 18:15 Ordered Initiate/Renew Non-Violent Restraints (All Ages) Q24H Care 02/09/20 18:15 Ordered Nrsg Assess Restraint Init/Mon [RC] Q1H Care 02/08/20 18:15 Active Chest 1V Frontal [CR] Stat Exams 02/08/20 18:00 Taken Acetaminophen [TylenoL] Med 02/08/20 17:59 Active 650 mg PO Q4H PRN Norepinephrine [Levophed] 4 mg Med 02/08/20 20:30 Active Dextrose 5% in Water 246 ml IV TITRATE dexAMETHasone [Decadron] Med 02/08/20 20:30 Active 6 mg IVPUSH DAILY Isolation [COMM] Routine Oth 02/08/20 18:00 Ordered Isolation [COMM] Stat Oth 02/08/20 17:59 Ordered Medication Orders Acetaminophen (Tylenol) 650 mg PO Q4H PRN PRN Reason: Fever Greater Than 101 Dexamethasone (Decadron) 6 mg IVPUSH DAILY YEIMI Stop: 02/17/20 09:01 Norepinephrine Bitartrate 4 mg (/ Dextrose/Water) 250 mls @ 7.5 mls/hr IV TITRATE YEIMI; Protocol Labs: Laboratory Tests 02/08/20 02/08/20 02/08/20 Range/Units 17:59 18:07 18:37 WBC (4.5-11.0) K/uL RBC (3.30-5.50) M/uL Hgb (12.0-15.0) g/dL Hct (36.0-48.0) % MCV (80-98) fL MCH (27-31) pg MCHC (32-36) % Plt Count (150-400) K/uL Neut % (Auto) (36-66) % Lymph % (Auto) (24-44) % [place] % (Auto) (2-6) % Eos % (Auto) (2-4) % Baso % (Auto) (0-1) % D-Dimer, Quantitative (0.0-500.0) ng/mL ABG Hemoglobin (12.0-16.0) g/dL ABG Oxyhemoglobin % ABG Carboxyhemoglobin (0.0-1.6) % ABG Methemoglobin % VBG pH (7.350-7.450) VBG pCO2 mm/Hg VBG pO2 mm/Hg VBG HCO3 mmol/L VBG Total CO2 mmol/L VBG O2 Saturation VBG O2 Content %vol VBG Base Excess mm/L O2 Delivery Device Sodium (140-148) mmol/L Potassium (3.6-5.2) mmol/L Chloride (100-108) mmol/L Carbon Dioxide (21-32) mmol/L Anion Gap (5.0-14.0) mmol/L BUN (7-18) mg/dL Creatinine (0.6-1.0) mg/dL Est Cr Clr Drug Dosing mL/min Estimated GFR (MDRD) (>60) Glucose (74-106) mg/dL Lactic Acid 1.7 (0.4-2.0) mmol/L Calcium (8.5-10.1) mg/dL Ferritin 412 H (8-388) ng/ml Total Bilirubin (0.2-1.0) mg/dL Direct Bilirubin (0.0-0.2) mg/dL Indirect Bilirubin AST (15-37) U/L ALT (12-78) U/L Alkaline Phosphatase (46-116) U/L Lactate Dehydrogenase (82-234) U/L C-Reactive Protein (0.0-0.3) mg/dL Total Protein (6.4-8.2) g/dL Albumin (3.4-5.0) g/dL Globulin (2.3-3.5) g/dL Albumin/Globulin Ratio (1.2-2.2) Procalcitonin ng/mL SARS-CoV-2 RNA (MORALES) Positive H (NEGATIVE) 02/08/20 02/08/20 02/08/20 Range/Units 18:37 18:37 18:37 WBC 6.1 (4.5-11.0) K/uL RBC 4.28 (3.30-5.50) M/uL Hgb 11.4 L (12.0-15.0) g/dL Hct 36.8 (36.0-48.0) % MCV 86 (80-98) fL MCH 27 (27-31) pg MCHC 31 L (32-36) % Plt Count 150 (150-400) K/uL Neut % (Auto) 74 H (36-66) % Lymph % (Auto) 12 L (24-44) % [place] % (Auto) 13 H (2-6) % Eos % (Auto) 1 L (2-4) % Baso % (Auto) 1 (0-1) % D-Dimer, Quantitative 1292.72 H (0.0-500.0) ng/mL ABG Hemoglobin (12.0-16.0) g/dL ABG Oxyhemoglobin % ABG Carboxyhemoglobin (0.0-1.6) % ABG Methemoglobin % VBG pH (7.350-7.450) VBG pCO2 mm/Hg VBG pO2 mm/Hg VBG HCO3 mmol/L VBG Total CO2 mmol/L VBG O2 Saturation VBG O2 Content %vol VBG Base Excess mm/L O2 Delivery Device Sodium 140 (140-148) mmol/L Potassium 4.5 (3.6-5.2) mmol/L Chloride 104 (100-108) mmol/L Carbon Dioxide 27 (21-32) mmol/L Anion Gap 9.0 (5.0-14.0) mmol/L BUN 27 H (7-18) mg/dL Creatinine 1.2 H (0.6-1.0) mg/dL Est Cr Clr Drug Dosing 28.25 mL/min Estimated GFR (MDRD) 43 L (>60) Glucose 102 (74-106) mg/dL Lactic Acid (0.4-2.0) mmol/L Calcium 8.7 (8.5-10.1) mg/dL Ferritin (8-388) ng/ml Total Bilirubin 0.6 D (0.2-1.0) mg/dL Direct Bilirubin 0.24 H (0.0-0.2) mg/dL Indirect Bilirubin 0.36 AST 26 (15-37) U/L ALT 32 (12-78) U/L Alkaline Phosphatase 116 (46-116) U/L Lactate Dehydrogenase 196 (82-234) U/L C-Reactive Protein 15.97 H (0.0-0.3) mg/dL Total Protein 6.7 (6.4-8.2) g/dL Albumin 2.7 L (3.4-5.0) g/dL Globulin 4.0 H (2.3-3.5) g/dL Albumin/Globulin Ratio 0.7 L (1.2-2.2) Procalcitonin ng/mL SARS-CoV-2 RNA ([facility]ALES) (NEGATIVE) 02/08/20 02/08/20 Range/Units 18:37 19:29 WBC (4.5-11.0) K/uL RBC (3.30-5.50) M/uL Hgb (12.0-15.0) g/dL Hct (36.0-48.0) % MCV (80-98) fL MCH (27-31) pg MCHC (32-36) % Plt Count (150-400) K/uL Neut % (Auto) (36-66) % Lymph % (Auto) (24-44) % [place] % (Auto) (2-6) % Eos % (Auto) (2-4) % Baso % (Auto) (0-1) % D-Dimer, Quantitative (0.0-500.0) ng/mL ABG Hemoglobin 11.8 L (12.0-16.0) g/dL ABG Oxyhemoglobin 73.3 % ABG Carboxyhemoglobin 1.9 H (0.0-1.6) % ABG Methemoglobin 0.9 % VBG pH 7.420 (7.350-7.450) VBG pCO2 40.5 mm/Hg VBG pO2 42.0 mm/Hg VBG HCO3 25.7 mmol/L VBG Total CO2 23.4 mmol/L VBG O2 Saturation 75.4 VBG O2 Content 12.2 %vol VBG Base Excess 1.7 mm/L O2 Delivery Device Nasal cannula Sodium (140-148) mmol/L Potassium (3.6-5.2) mmol/L Chloride (100-108) mmol/L Carbon Dioxide (21-32) mmol/L Anion Gap (5.0-14.0) mmol/L BUN (7-18) mg/dL Creatinine (0.6-1.0) mg/dL Est Cr Clr Drug Dosing mL/min Estimated GFR (MDRD) (>60) Glucose (74-106) mg/dL Lactic Acid (0.4-2.0) mmol/L Calcium (8.5-10.1) mg/dL Ferritin (8-388) ng/ml Total Bilirubin (0.2-1.0) mg/dL Direct Bilirubin (0.0-0.2) mg/dL Indirect Bilirubin AST (15-37) U/L ALT (12-78) U/L Alkaline Phosphatase (46-116) U/L Lactate Dehydrogenase (82-234) U/L C-Reactive Protein (0.0-0.3) mg/dL Total Protein (6.4-8.2) g/dL Albumin (3.4-5.0) g/dL Globulin (2.3-3.5) g/dL Albumin/Globulin Ratio (1.2-2.2) Procalcitonin < 0.05 ng/mL SARS-CoV-2 RNA ([facility]ALES) (NEGATIVE) Meds: Medications Generic Name Dose Route Start Last Admin Trade Name Fredaquan PRN Reason Stop Dose Admin Acetaminophen 650 mg 02/08/20 17:59 Tylenol PO Q4H PRN Fever Greater Than 101 Dexamethasone 6 mg 02/08/20 20:30 Decadron IVPUSH 02/17/20 09:01 DAILY YEIMI Norepinephrine Bitartrate 4 mg 250 mls @ 7.5 mls/hr 02/08/20 20:30 / Dextrose/Water IV TITRATE YEIMI Protocol 2 MCG/MIN Discontinued Medications Generic Name Dose Route Start Last Admin Trade Name Freq PRN Reason Stop Dose Admin Remdesivir 200 mg/ Sodium 250 mls @ 250 mls/hr 02/08/20 20:22 Chloride IV 02/08/20 20:23 ONETIME ONE Departure - Departure Time of Disposition: 20:47 Disposition: Admitted As Inpatient 65 Condition: Poor Clinical Impression: COVID-19 - Discharge Information Referrals: PCP,None [Primary Care Provider] - Forms: ED Department Discharge Sepsis Event Note (ED) - Evaluation Sepsis Screening Result: No Definite Risk - Focused Exam Vital Signs: Vital Signs Temp Pulse Resp BP Pulse Ox 02/08/20 20:44 77 27 H 95/64 100 02/08/20 19:28 98.7 F 87 27 H 100/41 L 100 02/08/20 18:27 69 88/61 L 02/08/20 17:49 65 95/50 L 02/08/20 17:47 96.5 F L 70 16 100/49 L 93 L 02/08/20 17:33 96.5 F L 70 16 100/49 L 93 L - My Orders Last 24 Hours: My Active Orders 02/08/20 17:59 Acetaminophen [TylenoL] 650 mg PO Q4H PRN Isolation [COMM] Stat 02/08/20 18:00 Chest 1V Frontal [CR] Stat Isolation [COMM] Routine 02/08/20 18:15 Initiate/Renew Non-Violent Restraints (All Ages) Q24H Nrsg Assess Restraint Init/Mon [RC] Q1H 02/08/20 20:30 Norepinephrine [Levophed] 4 mg Dextrose 5% in Water 246 ml IV TITRATE dexAMETHasone [Decadron] 6 mg IVPUSH DAILY 02/09/20 18:15 Initiate/Renew Non-Violent Restraints (All Ages) Q24H - Assessment/Plan Last 24 Hours: My Active Orders 02/08/20 17:59 Acetaminophen [TylenoL] 650 mg PO Q4H PRN Isolation [COMM] Stat 02/08/20 18:00 Chest 1V Frontal [CR] Stat Isolation [COMM] Routine 02/08/20 18:15 Initiate/Renew Non-Violent Restraints (All Ages) Q24H Nrsg Assess Restraint Init/Mon [RC] Q1H 02/08/20 20:30 Norepinephrine [Levophed] 4 mg Dextrose 5% in Water 246 ml IV TITRATE dexAMETHasone [Decadron] 6 mg IVPUSH DAILY 02/09/20 18:15 Initiate/Renew Non-Violent Restraints (All Ages) Q24H Plan: Assessment Acuity = acute Site and laterality = Covid 19 Etiology = viral syndrome Manifestations = hypoxia hypotension Location of injury = Home Lab values = CBC unremarkable a D-dimer elevated to 1292 creatinine elevated 1.2 consistent with chronic renal failure stage G3 B ferritin slightly elevated at 412 direct bilirubin elevated 0.26 consistent hyperbilirubinemia CRP elevated 15.97 Covid is positive chest x-ray consistent with Covid type infection Plan Call discussed case with Dr. Miller at 2030 currently agreed to come and ev aluate the patient in the hospital for admission remdesivir, dexamethasone and Levophed have been initiated This note was dictated using [employer] voice recognition software please call with any questions on syntax or grammar.
[2020-02-08] MEDS ORDERED: Norepinephrine 4 MG in Dextrose 5% in Water 246 ML IV SCH ×2 (20:30)
[2020-02-08] MEDS ORDERED: Dexamethasone 4 MG/ML SDV IVPUSH SCH (20:30)
[2020-02-08] MEDS ORDERED: Sodium Chloride 0.9% 10 ML Syringe FLUSH PRN ×2 (20:50→22:42)
[2020-02-08] MEDS ORDERED: Enoxaparin 40 MG/0.4 ML Syringe SUBCUT SCH ×2 (21:45→22:45)
[2020-02-08] MEDS ORDERED: Non-Formulary Medication 1 Each (Acetaminophen [Tylenol Arthritis Pain] 650 MG) PO SCH ×2 (22:00→22:45)
[2020-02-08] MEDS: Acetaminophen 325 MG Tab PO SCH (23:24)
--- NOTE | 2020-02-08 23:33 | HP ---
IDENTIFYING DATA: Smitha Carey is an 79-year-old female from [facility]. CHIEF COMPLAINT: Nursing staff at the correction setting note development of hypoxia and shortness of breath developing today. Smitha denies problems. HISTORY OF PRESENT ILLNESS: Elderly female, has a history of cognitive changes and combativeness secondary to multiple sclerosis of unknown duration of time. COVID testing was obtained earlier in the week, though results have not yet returned. She developed combativeness, dyspnea, hypoxia, congestion and cough today, and therefore was transferred to the emergency room for evaluation. PAST MEDICAL HISTORY: Limited. Noted history of right ankle fracture and multiple sclerosis. Records suggest a history of hypertension and urinary incontinence. Additionally, records indicate previous history of cataract surgery, appendectomy, and tubal ligation. She reports 2 previous pregnancies. ALLERGIES: REPORTED TO CARBAMAZEPINE, CODEINE, AND VALPROIC ACID. CURRENT MEDICATIONS: Acetaminophen 650 mg q.6 hours, Maalox 30 mg p.r.n. dyspepsia, aspirin 81 mg daily, baclofen 10 mg t.i.d., bisacodyl 10 mg p.r.n. constipation, calcium carbonate with vitamin D 600/200 units daily, docusate 100 mg daily, Imodium 4 mg t.i.d. p.r.n., Ocuvite 1 tablet b.i.d., magnesium hydroxide 30 mL t.i.d. p.r.n., multivitamin with minerals 1 tablet daily, oxybutynin extended release 5 mg daily, simvastatin 10 mg at bedtime, lisinopril 5 mg daily, MiraLax 17 g daily, DuoNeb q.6 hours p.r.n. shortness of breath, melatonin 9 mg at bedtime, senna Plus 1 tablet daily, sertraline 25 mg daily, BuSpar 10 mg t.i.d., trazodone 100 mg at bedtime. HABITS: Denies use of tobacco. Does report coffee intake. No alcohol use in the correction setting. IMMUNIZATIONS: Not confirmed. SOCIAL HISTORY: Currently residing at the local correction setting. Power of civil litigation attorney and next of kin include son, Rigoberto, living in the [place] area. FAMILY HISTORY: Unable to obtain. REVIEW OF SYSTEMS: NEUROLOGIC: Denies hearing problems. Denies visual distortion. Glasses are worn. No records of previous stroke noted. History of multiple sclerosis by record review. CARDIAC: History of hypertension. The patient denies ischemic heart disease, chest pain, palpitations, UT, or diabetes. RESPIRATORY: Denies obstructive pulmonary disease or asthma. Denies cough, sputum production, or shortness of breath, though respiratory symptom presentation is noted during conversation. GI: Denies dyspepsia, nausea, emesis, diarrhea, or melena. : Urinary incontinence managed with use of Ditropan. PHYSICAL EXAMINATION: VITAL SIGNS: On presentation, temperature 98.7 degrees Fahrenheit, pulse 77, respiratory rate 27, blood pressure 95/64, O2 sats 100% on room air. HEENT: Denies hearing problems. Asymmetric eye movement noted. Sclerae anicteric. No nasal congestion. Refuses to allow oral inspection. NECK: Brisk carotid pulses. No stridor. LUNGS: Labored respiratory effort. Bilateral expiratory rhonchi. No wheezes. HEART: Regular. Distant. No murmurs or gallops noted. ABDOMEN: Nontender and nondistended with active sounds noted. No abdominal bruits. EXTREMITIES: Moderate pitting at the distal extremities. SKIN: Warm and pink. She has old abrasions at the left knee and left tibial face. The patient is unaware of the means of injury. Additionally, resolving yellowed ecchymosis is noted in the left periorbital area. She denies falls. LABORATORY DATA: Labs on admission: Lactic acid 1.7. Ferritin 4.12. COVID-19 RNA testing is positive. WBC 6.1, hemoglobin 11.4, and platelet count 150,000. D-dimer 1293. Sodium 140, potassium 4.5, BUN 27, creatinine 1.2, GFR 43, glucose 102, total bilirubin 0.6, alkaline phosphatase and transaminases within normal range. C-reactive protein elevated at 15.97. Venous blood gases include a pO2 of 42, pCO2 of 40.5, with a pH of 7.42 with O2 saturation of 75 on nasal cannula O2 delivery. Chest x-ray, bilateral diffuse interstitial infiltrative changes without single area of consolidation. IMPRESSION: 1. COVID-19 infection with accompanying dyspnea and hypoxia. 2. Cognitive impairment with a history of multiple sclerosis. 3. Hypertension. 4. Hyperlipidemia. 5. Staff reported hypotension on presentation, blood pressure now appears to have stabilized. PLAN: The patient's family and caregiving nursing staff at the local correction have confirmed full code and family requests that all medical supportive treatments available be offered in an effort to manage her acute respiratory infection. We will therefore admit to the ICU. IV dexamethasone, remdesivir, and Levophed have been ordered by the ER staff. We will allow dietary intake as tolerated. The patient remains combative, therefore it is necessary to restrain wrists with soft restraints. Provide oxygen for hypoxia and monitor vital signs as per unit policy. Additionally, we will provide Lovenox DVT prophylaxis and continue with melatonin at bedtime to aid in sleep in addition to regular scheduled dose of buspirone for mood disorder. Followup studies include BMP in the a.m. to monitor electrolytes and renal function. Influenza A and B swabs will also be obtained. Antonio Miller MD /[id number]
[2020-02-09] MEDS: Enoxaparin 30 MG/0.3 ML Syringe SUBCUT SCH ×2 (00:30→21:23)
[2020-02-09] MEDS: Acetaminophen 325 MG Tab PO SCH ×4 (04:23→21:24)
[2020-02-09] MEDS ORDERED: REMDESIVIR (EUA) 100 MG in Sodium Chloride 0.9% 100 ML IV SCH ×2 (06:00→21:00)
[2020-02-09] MEDS ORDERED: Sertraline 25 MG Tab PO SCH (09:00)
[2020-02-09] MEDS ORDERED: busPIRone 10 MG Tab PO SCH (09:00)
[2020-02-09] MEDS ORDERED: Aspirin 81 MG Tab.EC PO SCH (09:00)
--- NOTE | 2020-02-09 09:00 | PN ---
DATE OF SERVICE: 02/09/2020 SUBJECTIVE: An 79-year-old female, resident of [facility], has noted history of cognitive changes secondary to multiple sclerosis. She was admitted with a recent development of acute respiratory symptoms and noted COVID-positive serologies. She continues to have evidence of agitation, restlessness, and resistiveness, chronic in nature, exacerbated by her current illness. She requires soft restraints of the wrists to prevent injury to self and caretakers. She denies pain, shortness of breath, or abdominal upset. She has rested intermittently through the night, becoming suspicious and resistant when attended to by nursing staff, incontinent of urine. Adult Attends are provided on an as- needed basis. OBJECTIVE: VITAL SIGNS: Temperature 35.7 degrees centigrade, pulse rate now 57, blood pressure 128/68 without pressor agents, respiratory rate 16 with O2 sats of 97% on room air. GENERAL: She arouses to voice, suspicious of the caregiver, angry, requests to be left alone. LUNGS: Expiratory rhonchi are noted. Nontachypneic. HEART: Regular without murmurs. ABDOMEN: Soft, mildly distended, nontender. No obvious organomegaly. EXTREMITIES: Warm and pink. Mild edema persists. No skin changes evident. Additional labs completed following hospitalization include influenza A and B studies noted to be negative. IMPRESSION AND PLAN: 1. Coronavirus disease positive pneumonitis in an elderly female. Hemodynamic status appears to be stable without pressor agents. She is maintaining O2 saturations without supplemental oxygen or other supportive respiratory therapy. We will continue with remdesivir and dexamethasone. Consider transfer out of unit when a bed becomes available for continued supportive cares on the coronavirus disease unit. When condition stabilizes, might consider transfer back to [facility] setting with return to more familiar routine and activities provided by [facility] staff. 2. Cognitive impairment secondary to multiple sclerosis and associated dementia. Maintain on usual supportive medications including sertraline, BuSpar, and trazodone. Have been reluctant to sedate with anxiolytics for fear of resulting respiratory suppression. Continue to provide reassurance, soft restraints to the wrists to prevent injury to self and providers, and gradually increase activity as tolerated. Antonio Miller MD /[id number]
[2020-02-09] MEDS: Sertraline 25 MG Tab PO SCH (11:06)
[2020-02-09] MEDS: busPIRone 10 MG Tab PO SCH ×3 (11:06→21:24)
[2020-02-09] MEDS: Aspirin 81 MG Tab.EC PO SCH (11:06)
[2020-02-09] MEDS ORDERED: Haloperidol Lactate 5 MG/ML SDV IVPUSH PRN (14:45)
--- NOTE | 2020-02-09 14:51 | PCM.PN ---
- General Info Date of Service: 02/09/20 Subjective Update: Ms. Carey is an 79-year-old woman who was admitted through the emergency department with hypotension and COVID-19. She was diagnosed with COVID-19 recently and apparently has been more agitated and confused. She was evaluated in the emergency department and noted to be hypotensive. There has been no evidence of significant hypoxia thus far. She was given IV fluids in the emergency department and because of persistent hypotension, IV norepinephrine was ordered. By the time this was to be started blood pressure has improved and she has not required further intervention. She is unable to provide a meaningful history concerning recent symptoms or review of systems because of confusion and underlying dementia. - Patient Data Vitals - Most Recent: Last Vital Signs Temp 97.2 F 02/09/20 12:15 Pulse 71 02/08/20 23:00 Resp 16 02/09/20 14:00 BP 94/39 L 02/09/20 14:00 Pulse Ox 96 02/09/20 14:00 Weight - Most Recent: 154 lb 1.6 oz I&O - Last 24 Hours: Intake & Output 02/08/20 02/09/20 02/09/20 22:59 06:59 14:59 Intake Total 390 Balance 390 Lab Results Last 24 Hours: Laboratory Results - last 24 hr 02/08/20 02/08/20 02/08/20 Range/Units 17:59 18:07 18:37 WBC (4.5-11.0) K/uL RBC (3.30-5.50) M/uL Hgb (12.0-15.0) g/dL Hct (36.0-48.0) % MCV (80-98) fL MCH (27-31) pg MCHC (32-36) % Plt Count (150-400) K/uL Neut % (Auto) (36-66) % Lymph % (Auto) (24-44) % [place] % (Auto) (2-6) % Eos % (Auto) (2-4) % Baso % (Auto) (0-1) % D-Dimer, Quantitative (0.0-500.0) ng/mL ABG Hemoglobin (12.0-16.0) g/dL ABG Oxyhemoglobin % ABG Carboxyhemoglobin (0.0-1.6) % ABG Methemoglobin % VBG pH (7.350-7.450) VBG pCO2 mm/Hg VBG pO2 mm/Hg VBG HCO3 mmol/L VBG Total CO2 mmol/L VBG O2 Saturation VBG O2 Content %vol VBG Base Excess mm/L O2 Delivery Device Sodium (140-148) mmol/L Potassium (3.6-5.2) mmol/L Chloride (100-108) mmol/L Carbon Dioxide (21-32) mmol/L Anion Gap (5.0-14.0) mmol/L BUN (7-18) mg/dL Creatinine (0.6-1.0) mg/dL Est Cr Clr Drug Dosing mL/min Estimated GFR (MDRD) (>60) Glucose (74-106) mg/dL Lactic Acid 1.7 (0.4-2.0) mmol/L Calcium (8.5-10.1) mg/dL Magnesium (1.8-2.4) mg/dL Ferritin 412 H (8-388) ng/ml Total Bilirubin (0.2-1.0) mg/dL Direct Bilirubin (0.0-0.2) mg/dL Indirect Bilirubin AST (15-37) U/L ALT (12-78) U/L Alkaline Phosphatase (46-116) U/L Lactate Dehydrogenase (82-234) U/L C-Reactive Protein (0.0-0.3) mg/dL Total Protein (6.4-8.2) g/dL Albumin (3.4-5.0) g/dL Globulin (2.3-3.5) g/dL Albumin/Globulin Ratio (1.2-2.2) Procalcitonin ng/mL SARS-CoV-2 RNA ([facility]) Positive H (NEGATIVE) Blood Type 02/08/20 02/08/20 02/08/20 Range/Units 18:37 18:37 18:37 WBC 6.1 (4.5-11.0) K/uL RBC 4.28 (3.30-5.50) M/uL Hgb 11.4 L (12.0-15.0) g/dL Hct 36.8 (36.0-48.0) % MCV 86 (80-98) fL MCH 27 (27-31) pg MCHC 31 L (32-36) % Plt Count 150 (150-400) K/uL Neut % (Auto) 74 H (36-66) % Lymph % (Auto) 12 L (24-44) % [place] % (Auto) 13 H (2-6) % Eos % (Auto) 1 L (2-4) % Baso % (Auto) 1 (0-1) % D-Dimer, Quantitative 1292.72 H (0.0-500.0) ng/mL ABG Hemoglobin (12.0-16.0) g/dL ABG Oxyhemoglobin % ABG Carboxyhemoglobin (0.0-1.6) % ABG Methemoglobin % VBG pH (7.350-7.450) VBG pCO2 mm/Hg VBG pO2 mm/Hg VBG HCO3 mmol/L VBG Total CO2 mmol/L VBG O2 Saturation VBG O2 Content %vol VBG Base Excess mm/L O2 Delivery Device Sodium 140 (140-148) mmol/L Potassium 4.5 (3.6-5.2) mmol/L Chloride 104 (100-108) mmol/L Carbon Dioxide 27 (21-32) mmol/L Anion Gap 9.0 (5.0-14.0) mmol/L BUN 27 H (7-18) mg/dL Creatinine 1.2 H (0.6-1.0) mg/dL Est Cr Clr Drug Dosing 28.25 mL/min Estimated GFR (MDRD) 43 L (>60) Glucose 102 (74-106) mg/dL Lactic Acid (0.4-2.0) mmol/L Calcium 8.7 (8.5-10.1) mg/dL Magnesium (1.8-2.4) mg/dL Ferritin (8-388) ng/ml Total Bilirubin 0.6 D (0.2-1.0) mg/dL Direct Bilirubin 0.24 H (0.0-0.2) mg/dL Indirect Bilirubin 0.36 AST 26 (15-37) U/L ALT 32 (12-78) U/L Alkaline Phosphatase 116 (46-116) U/L Lactate Dehydrogenase 196 (82-234) U/L C-Reactive Protein 15.97 H (0.0-0.3) mg/dL Total Protein 6.7 (6.4-8.2) g/dL Albumin 2.7 L (3.4-5.0) g/dL Globulin 4.0 H (2.3-3.5) g/dL Albumin/Globulin Ratio 0.7 L (1.2-2.2) Procalcitonin ng/mL SARS-CoV-2 RNA ([facility]) (NEGATIVE) Blood Type 02/08/20 02/08/20 02/09/20 Range/Units 18:37 19:29 08:50 WBC 3.5 L (4.5-11.0) K/uL RBC 4.29 (3.30-5.50) M/uL Hgb 11.5 L (12.0-15.0) g/dL Hct 36.3 (36.0-48.0) % MCV 85 (80-98) fL MCH 27 (27-31) pg MCHC 32 (32-36) % Plt Count 164 (150-400) K/uL Neut % (Auto) 86 H (36-66) % Lymph % (Auto) 10 L (24-44) % [place] % (Auto) 3 (2-6) % Eos % (Auto) 0 L (2-4) % Baso % (Auto) 0 (0-1) % D-Dimer, Quantitative (0.0-500.0) ng/mL ABG Hemoglobin 11.8 L (12.0-16.0) g/dL ABG Oxyhemoglobin 73.3 % ABG Carboxyhemoglobin 1.9 H (0.0-1.6) % ABG Methemoglobin 0.9 % VBG pH 7.420 (7.350-7.450) VBG pCO2 40.5 mm/Hg VBG pO2 42.0 mm/Hg VBG HCO3 25.7 mmol/L VBG Total CO2 23.4 mmol/L VBG O2 Saturation 75.4 VBG O2 Content 12.2 %vol VBG Base Excess 1.7 mm/L O2 Delivery Device Nasal cannula Sodium (140-148) mmol/L Potassium (3.6-5.2) mmol/L Chloride (100-108) mmol/L Carbon Dioxide (21-32) mmol/L Anion Gap (5.0-14.0) mmol/L BUN (7-18) mg/dL Creatinine (0.6-1.0) mg/dL Est Cr Clr Drug Dosing mL/min Estimated GFR (MDRD) (>60) Glucose (74-106) mg/dL Lactic Acid (0.4-2.0) mmol/L Calcium (8.5-10.1) mg/dL Magnesium (1.8-2.4) mg/dL Ferritin (8-388) ng/ml Total Bilirubin (0.2-1.0) mg/dL Direct Bilirubin (0.0-0.2) mg/dL Indirect Bilirubin AST (15-37) U/L ALT (12-78) U/L Alkaline Phosphatase (46-116) U/L Lactate Dehydrogenase (82-234) U/L C-Reactive Protein (0.0-0.3) mg/dL Total Protein (6.4-8.2) g/dL Albumin (3.4-5.0) g/dL Globulin (2.3-3.5) g/dL Albumin/Globulin Ratio (1.2-2.2) Procalcitonin < 0.05 ng/mL SARS-CoV-2 RNA ([facility]) (NEGATIVE) Blood Type 02/09/20 02/09/20 Range/Units 08:50 08:50 WBC (4.5-11.0) K/uL RBC (3.30-5.50) M/uL Hgb (12.0-15.0) g/dL Hct (36.0-48.0) % MCV (80-98) fL MCH (27-31) pg MCHC (32-36) % Plt Count (150-400) K/uL Neut % (Auto) (36-66) % Lymph % (Auto) (24-44) % [place] % (Auto) (2-6) % Eos % (Auto) (2-4) % Baso % (Auto) (0-1) % D-Dimer, Quantitative (0.0-500.0) ng/mL ABG Hemoglobin (12.0-16.0) g/dL ABG Oxyhemoglobin % ABG Carboxyhemoglobin (0.0-1.6) % ABG Methemoglobin % VBG pH (7.350-7.450) VBG pCO2 mm/Hg VBG pO2 mm/Hg VBG HCO3 mmol/L VBG Total CO2 mmol/L VBG O2 Saturation VBG O2 Content %vol VBG Base Excess mm/L O2 Delivery Device Sodium 140 (140-148) mmol/L Potassium 4.2 (3.6-5.2) mmol/L Chloride 104 (100-108) mmol/L Carbon Dioxide 25 (21-32) mmol/L Anion Gap 11.0 (5.0-14.0) mmol/L BUN 31 H (7-18) mg/dL Creatinine 1.2 H (0.6-1.0) mg/dL Est Cr Clr Drug Dosing 28.25 mL/min Estimated GFR (MDRD) 43 L (>60) Glucose 110 H (74-106) mg/dL Lactic Acid (0.4-2.0) mmol/L Calcium 8.4 L (8.5-10.1) mg/dL Magnesium 2.1 (1.8-2.4) mg/dL Ferritin (8-388) ng/ml Total Bilirubin 0.5 (0.2-1.0) mg/dL Direct Bilirubin (0.0-0.2) mg/dL Indirect Bilirubin AST 24 (15-37) U/L ALT 35 (12-78) U/L Alkaline Phosphatase 115 (46-116) U/L Lactate Dehydrogenase (82-234) U/L C-Reactive Protein 16.28 H (0.0-0.3) mg/dL Total Protein 6.7 (6.4-8.2) g/dL Albumin 2.6 L (3.4-5.0) g/dL Globulin 4.1 H (2.3-3.5) g/dL Albumin/Globulin Ratio 0.6 L (1.2-2.2) Procalcitonin ng/mL SARS-CoV-2 RNA ([facility]) (NEGATIVE) Blood Type O POSITIVE Mook Results Last 24 Hours: Microbiology 02/08/20 17:59 Influenza Type A Antigen Screen - Final Nasal Aspirate, Unspecified NEGATIVE INFLUENZA A VIRUS AG REFERENCE RANGE: NEGATIVE Influenza Type B Antigen Screen - Final NEGATIVE INFLUENZA B VIRUS AG REFERENCE RANGE: NEGATIVE Med Orders - Current: Current Medications Acetaminophen (Tylenol) 650 mg PO Q4H PRN PRN Reason: Pain (Mild 1-3)/fever Acetaminophen (Tylenol) 650 mg PO Q6HR [facility] Last Admin: 02/09/20 11:06 Dose: 650 mg Documented by: Aspirin (Halfprin) 81 mg PO DAILY [facility] Last Admin: 02/09/20 11:06 Dose: 81 mg Documented by: Buspirone HCl (Buspar) 10 mg PO TID [facility] Last Admin: 02/09/20 14:25 Dose: 10 mg Documented by: Enoxaparin Sodium (Lovenox) 30 mg SUBCUT BEDTIME [facility] Last Admin: 02/09/20 00:30 Dose: 30 mg Documented by: Melatonin (Melatonin) 9 mg PO BEDTIME [facility] Sertraline HCl (Zoloft) 25 mg PO DAILY [facility] Last Admin: 02/09/20 11:06 Dose: 25 mg Documented by: Simvastatin (Zocor) 10 mg PO BEDTIME [facility] Sodium Chloride (Saline Flush) 10 ml FLUSH ASDIRECTED PRN PRN Reason: Keep Vein Open Trazodone HCl (Trazodone) 100 mg PO BEDTIME [facility] Discontinued Medications Acetaminophen (Tylenol) 650 mg PO Q4H PRN PRN Reason: Fever Greater Than 101 Acetaminophen (Tylenol) 650 mg PO Q4H PRN PRN Reason: Pain (Mild 1-3)/fever Aspirin (Halfprin) 81 mg PO DAILY [facility] Buspirone HCl (Buspar) 10 mg PO TID [facility] Dexamethasone (Decadron) 6 mg IVPUSH DAILY [facility] Stop: 02/17/20 09:01 Last Admin: 02/08/20 21:51 Dose: 6 mg Documented by: Dexamethasone (Decadron) 6 mg IVPUSH Q24H [facility] Stop: 02/17/20 21:01 Remdesivir 200 mg/ Sodium (Chloride) 250 mls @ 250 mls/hr IV ONETIME ONE Stop: 02/08/20 20:23 Last Admin: 02/08/20 21:50 Dose: 250 mls/hr Documented by: Norepinephrine Bitartrate 4 mg (/ Dextrose/Water) 250 mls @ 7.5 mls/hr IV TITRATE [facility]; Protocol Remdesivir 100 mg/ Sodium (Chloride) 100 mls @ 100 mls/hr IV Q24H [facility] Stop: 02/12/20 21:59 Melatonin (Melatonin) 9 mg PO BEDTIME [facility] Non-Formulary Medication (Acetaminophen [Tylenol Arthritis Pain]) 650 mg PO Q6HR [facility] Non-Formulary Medication (Simvastatin [Simvastatin]) 10 mg PO BEDTIME [facility] Sertraline HCl (Zoloft) 25 mg PO DAILY [facility] Sodium Chloride (Saline Flush) 10 ml FLUSH ASDIRECTED PRN PRN Reason: Keep Vein Open Trazodone HCl (Trazodone) 100 mg PO BEDTIME [facility] - Exam Quality Assessment: DVT Prophylaxis. No: Supplemental Oxygen General: Mild Distress, Lethargic. No: Cooperative Lungs: Clear to Auscultation, Normal Respiratory Effort Cardiovascular: Regular Rate, Regular Rhythm, No Murmurs GI/Abdominal Exam: Soft, Non-Tender, No Organomegaly, No Distention Extremities: Non-Tender, No Pedal Edema Sepsis Event Note - Evaluation Sepsis Screening Result: No Definite Risk - Focused Exam Vital Signs: Vital Signs Temp Temp Resp BP Pulse Ox 02/09/20 14:00 16 94/39 L 96 02/09/20 12:15 97.2 F 16 95/50 L 95 02/09/20 12:00 97.3 F 16 99/44 L 95 02/09/20 11:45 97.2 F 12 108/48 L 96 02/09/20 11:33 97.2 F 14 116/47 L 96 02/09/20 11:32 97.2 F 12 125/61 94 L 02/09/20 11:18 97 F 16 129/83 95 02/09/20 11:04 97 F 12 145/54 H 94 L 02/09/20 10:00 12 140/52 L 95 02/09/20 08:00 97 F 12 131/54 L 96 02/09/20 06:00 16 97 02/09/20 04:00 18 128/68 92 L - Problem List Review Problem List Initiated/Reviewed/Updated: Yes - My Orders Last 24 Hours: My Active Orders 02/09/20 14:45 Haloperidol Lactate [Haldol] 1 mg IVPUSH Q2H PRN 02/09/20 21:00 Melatonin 9 mg PO BEDTIME 02/10/20 05:00 COMPREHENSIVE METABOLIC PN,CMP [CHEM] Timed 02/10/20 05:11 CRP [C-REACTIVE PROTEIN] [CHEM] AM D Dimer [D-DIMER QUANTITATIVE] [COAG] AM FERRITIN [CHEM] AM - Plan Plan:: ASSESSMENT AND PLAN COVID-19 INFECTION-progressive weakness with increasing confusion and agitation. There has been no significant hypoxia identified to this point. -Supportive care -Hold on active treatment with no evidence of hypoxia. HYPOTENSION-noted in the emergency department, suspect that this was secondary to dehydration. Initially did not respond to fluids, IV norepinephrine was ordered but never initiated. Blood pressure has remained stable since admission to ICU. -Hold lisinopril -Continue to monitor blood pressure AGITATION-likely secondary to current illness and underlying dementia -Haldol 1 mg IV every 2 hours as needed -Continue outpatient management MAINTENANCE ISSUES -DVT prophylaxis; Lovenox 30 mg subcu daily -GI prophylaxis; not indicated -Peng catheter; not indicated -Nutrition; regular diet -Nicotine dependence; not required CODE STATUS-FULL CODE ADMISSION STATUS-patient will be admitted to inpatient status, expect at least a 2 night hospital stay for evaluation and management of problems as outlined above. At the time of this admission I do not reasonably expected evaluation and management of this problem will require more than a 96 hour hospital stay. DISPOSITION-anticipate discharge to home after the hospital stay. PRIMARY CARE PROVIDER-
[2020-02-09] MEDS ORDERED: Non-Formulary Medication 1 Each (Simvastatin [Simvastatin] 10 MG) PO SCH (21:00)
[2020-02-09] MEDS ORDERED: traZODone 50 MG Tab PO SCH (21:00)
[2020-02-09] MEDS ORDERED: Melatonin 3 MG Tab PO SCH ×2 (21:00)
[2020-02-09] MEDS ORDERED: Dexamethasone 4 MG/ML SDV IVPUSH SCH (21:00)
[2020-02-09] MEDS: traZODone 50 MG Tab PO SCH (21:23)
[2020-02-09] MEDS: Melatonin 3 MG Tab PO SCH (21:23)
[2020-02-09] MEDS: Simvastatin 20 MG Tab PO SCH (21:23)
[2020-02-10] MEDS: Acetaminophen 325 MG Tab PO SCH ×4 (06:19→22:00)
--- NOTE | 2020-02-10 09:24 | CR ---
CHEST: Portable 02/08/2020 at 6:33 PM CLINICAL HISTORY:Respiratory failure COMPARISON:None available FINDINGS: There is poor inspiratory level which exaggerates the basal lung markings. There are patchy densities in both lower lung meyers suspect for pneumonitis or pneumonia. There are atherosclerotic changes in the aorta. Impression: Limited study with poor inspiratory level. Patchy bilateral lower lobe densities are suspect for pneumonitis or pneumonia
[2020-02-10] MEDS: Sertraline 25 MG Tab PO SCH (09:28)
[2020-02-10] MEDS: busPIRone 10 MG Tab PO SCH ×3 (09:29→22:01)
[2020-02-10] MEDS: Aspirin 81 MG Tab.EC PO SCH (09:29)
--- NOTE | 2020-02-10 13:45 | PCM.PN ---
- General Info Date of Service: 02/10/20 Subjective Update: No acute events overnight. Patient is not able to give any reliable history because of her dementia. With simple questions she is able to tell me that she feels well. No complaints of headache, shortness of breath or nausea. She tells me that she feels well. No significant behavior issues overnight though she did require Haldol one time for mild agitation. No fevers. No hypoxia. Functional Status: Reports: Pain Controlled - Review of Systems General: Denies: Fever Psychiatric: Reports: Confusion - Patient Data Vitals - Most Recent: Last Vital Signs Temp 35.5 C L 02/10/20 08:00 Pulse 62 02/10/20 10:00 Resp 15 02/10/20 10:00 BP 114/54 L 02/10/20 10:00 Pulse Ox 96 02/10/20 10:00 Weight - Most Recent: 69.899 kg Lab Results Last 24 Hours: Laboratory Results - last 24 hr 02/10/20 02/10/20 02/10/20 Range/Units 05:15 05:15 05:15 WBC 4.5 (4.5-11.0) K/uL RBC 4.00 (3.30-5.50) M/uL Hgb 10.6 L (12.0-15.0) g/dL Hct 33.8 L (36.0-48.0) % MCV 85 (80-98) fL MCH 27 (27-31) pg MCHC 31 L (32-36) % Plt Count 183 (150-400) K/uL D-Dimer, Quantitative 1224.48 H (0.0-500.0) ng/mL Sodium (140-148) mmol/L Potassium (3.6-5.2) mmol/L Chloride (100-108) mmol/L Carbon Dioxide (21-32) mmol/L Anion Gap (5.0-14.0) mmol/L BUN (7-18) mg/dL Creatinine (0.6-1.0) mg/dL Est Cr Clr Drug Dosing mL/min Estimated GFR (MDRD) (>60) Glucose (74-106) mg/dL Calcium (8.5-10.1) mg/dL Ferritin 522 H (8-388) ng/ml Total Bilirubin (0.2-1.0) mg/dL AST (15-37) U/L ALT (12-78) U/L Alkaline Phosphatase (46-116) U/L C-Reactive Protein 10.58 H (0.0-0.3) mg/dL Total Protein (6.4-8.2) g/dL Albumin (3.4-5.0) g/dL Globulin (2.3-3.5) g/dL Albumin/Globulin Ratio (1.2-2.2) 02/10/20 Range/Units 05:15 WBC (4.5-11.0) K/uL RBC (3.30-5.50) M/uL Hgb (12.0-15.0) g/dL Hct (36.0-48.0) % MCV (80-98) fL MCH (27-31) pg MCHC (32-36) % Plt Count (150-400) K/uL D-Dimer, Quantitative (0.0-500.0) ng/mL Sodium 142 (140-148) mmol/L Potassium 4.5 (3.6-5.2) mmol/L Chloride 107 (100-108) mmol/L Carbon Dioxide 27 (21-32) mmol/L Anion Gap 8.4 (5.0-14.0) mmol/L BUN 39 H (7-18) mg/dL Creatinine 1.2 H (0.6-1.0) mg/dL Est Cr Clr Drug Dosing 28.25 mL/min Estimated GFR (MDRD) 43 L (>60) Glucose 113 H (74-106) mg/dL Calcium 8.4 L (8.5-10.1) mg/dL Ferritin (8-388) ng/ml Total Bilirubin 0.4 (0.2-1.0) mg/dL AST 27 (15-37) U/L ALT 31 (12-78) U/L Alkaline Phosphatase 105 (46-116) U/L C-Reactive Protein (0.0-0.3) mg/dL Total Protein 6.1 L (6.4-8.2) g/dL Albumin 2.4 L (3.4-5.0) g/dL Globulin 3.7 H (2.3-3.5) g/dL Albumin/Globulin Ratio 0.7 L (1.2-2.2) Med Orders - Current: Current Medications Acetaminophen (Tylenol) 650 mg PO Q4H PRN PRN Reason: Pain (Mild 1-3)/fever Acetaminophen (Tylenol) 650 mg PO Q6HR [facility] [place] Last Admin: 02/10/20 09:29 Dose: 650 mg Documented by: Aspirin (Halfprin) 81 mg PO DAILY [facility] [place] Last Admin: 02/10/20 09:29 Dose: 81 mg Documented by: Buspirone HCl (Buspar) 10 mg PO TID [facility] [place] Last Admin: 02/10/20 09:29 Dose: 10 mg Documented by: Enoxaparin Sodium (Lovenox) 30 mg SUBCUT BEDTIME [facility] [place] Last Admin: 02/09/20 21:23 Dose: 30 mg Documented by: Haloperidol Lactate (Haldol) 1 mg IVPUSH Q2H PRN PRN Reason: Agitation Melatonin (Melatonin) 9 mg PO BEDTIME [facility] [place] Last Admin: 02/09/20 21:23 Dose: 9 mg Documented by: Sertraline HCl (Zoloft) 25 mg PO DAILY [facility] [place] Last Admin: 02/10/20 09:28 Dose: 25 mg Documented by: Simvastatin (Zocor) 10 mg PO BEDTIME [facility] [place] Last Admin: 02/09/20 21:23 Dose: 10 mg Documented by: Sodium Chloride (Saline Flush) 10 ml FLUSH ASDIRECTED PRN PRN Reason: Keep Vein Open Trazodone HCl (Trazodone) 100 mg PO BEDTIME [facility] [place] Last Admin: 02/09/20 21:23 Dose: 100 mg Documented by: Discontinued Medications Acetaminophen (Tylenol) 650 mg PO Q4H PRN PRN Reason: Fever Greater Than 101 Acetaminophen (Tylenol) 650 mg PO Q4H PRN PRN Reason: Pain (Mild 1-3)/fever Aspirin (Halfprin) 81 mg PO DAILY [facility] [place] Buspirone HCl (Buspar) 10 mg PO TID [facility] [place] Dexamethasone (Decadron) 6 mg IVPUSH DAILY [facility] [place] Stop: 02/17/20 09:01 Last Admin: 02/08/20 21:51 Dose: 6 mg Documented by: Dexamethasone (Decadron) 6 mg IVPUSH Q24H [facility] [place] Stop: 02/17/20 21:01 Remdesivir 200 mg/ Sodium (Chloride) 250 mls @ 250 mls/hr IV ONETIME ONE Stop: 02/08/20 20:23 Last Admin: 02/08/20 21:50 Dose: 250 mls/hr Documented by: Norepinephrine Bitartrate 4 mg (/ Dextrose/Water) 250 mls @ 7.5 mls/hr IV TITRATE [facility]; Protocol Remdesivir 100 mg/ Sodium (Chloride) 100 mls @ 100 mls/hr IV Q24H [facility] Stop: 02/12/20 21:59 Melatonin (Melatonin) 9 mg PO BEDTIME [facility] Non-Formulary Medication (Acetaminophen [Tylenol Arthritis Pain]) 650 mg PO Q6HR [facility] Non-Formulary Medication (Simvastatin [Simvastatin]) 10 mg PO BEDTIME [facility] Sertraline HCl (Zoloft) 25 mg PO DAILY [facility] Sodium Chloride (Saline Flush) 10 ml FLUSH ASDIRECTED PRN PRN Reason: Keep Vein Open Trazodone HCl (Trazodone) 100 mg PO BEDTIME [facility] - Exam Quality Assessment: No: Supplemental Oxygen General: Alert, Cooperative, No Acute Distress. No: Oriented Lungs: Clear to Auscultation, Normal Respiratory Effort Cardiovascular: Regular Rate, Regular Rhythm GI/Abdominal Exam: Normal Bowel Sounds, Soft, Non-Tender, No Distention Extremities: No Pedal Edema. No: Increased Warmth Skin: Warm, Dry Psy/Mental Status: Alert, Normal Affect. No: Agitated Sepsis Event Note - Evaluation Sepsis Screening Result: No Definite Risk - Focused Exam Vital Signs: Vital Signs Temp Pulse Resp BP Pulse Ox 02/10/20 10:00 62 15 114/54 L 96 02/10/20 08:00 35.5 C L 15 118/57 L 96 02/10/20 06:00 14 147/63 H 95 02/10/20 04:00 15 138/56 L 96 02/10/20 02:00 15 94/43 L 96 - Problem List Review Problem List Initiated/Reviewed/Updated: Yes - Plan Plan:: ASSESSMENT AND PLAN COVID-19 INFECTION-weakness with increasing confusion and agitation but no major issues during the hospital stay. No hypoxia and vitals are stable. -Supportive care -Hold on active treatment with no evidence of hypoxia. HYPOTENSION-noted in the emergency department, suspect that this was secondary to dehydration. Blood pressure has remained normal. -Hold lisinopril -Continue to monitor blood pressure AGITATION-likely secondary to current illness and underlying dementia. Overall no significant behavior issues. -Haldol 1 mg IV every 2 hours as needed -Continue outpatient management MAINTENANCE ISSUES -DVT prophylaxis; Lovenox 30 mg subcu daily -GI prophylaxis; not indicated -Peng catheter; not indicated -Nutrition; regular diet DISPOSITION-anticipate discharge to the intermediate after the hospital stay. She is stable for discharge at this time but unfortunately no ride is available to get her back to the intermediate. Gabriel Gutiérrez MD
[2020-02-10] MEDS: Melatonin 3 MG Tab PO SCH (22:00)
[2020-02-10] MEDS: traZODone 50 MG Tab PO SCH (22:00)
[2020-02-10] MEDS: Enoxaparin 30 MG/0.3 ML Syringe SUBCUT SCH (22:01)
[2020-02-10] MEDS: Simvastatin 20 MG Tab PO SCH (22:01)
[2020-02-11] MEDS: Acetaminophen 325 MG Tab PO SCH ×3 (04:20→11:10)
[2020-02-11] MEDS: Sertraline 25 MG Tab PO SCH (08:28)
[2020-02-11] MEDS: Aspirin 81 MG Tab.EC PO SCH (08:28)
[2020-02-11] MEDS: busPIRone 10 MG Tab PO SCH (08:28)
--- NOTE | 2020-02-11 09:26 | PCM.DCSUM1 ---
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 She was admitted for management of COVID-19 infection with weakness and agitation. Diagnosis: Stroke: No - Discharge Data Discharge Date: 02/11/20 Discharge Disposition: DC/Tfer to SNF 03 Condition: Stable - Referral to Home Health Primary Care Physician: PCP None - Discharge Diagnosis/Problem(s) (1) COVID-19 SNOMED Code(s): 546062635 ICD Code: U07.1 - COVID-19 Status: Acute Current Visit: Yes (2) Multiple sclerosis, secondary progressive SNOMED Code(s): 465588180 ICD Code: G35 - MULTIPLE SCLEROSIS Status: Chronic Current Visit: No - Patient Summary/Data Hospital Course: Samira presented to the emergency room from the shelter with increasing agitation and weakness. Work-up in the emergency room revealed COVID-19 positive testing. There is no other additional obvious evidence for infection such as urinary tract infection or pneumonia. She was noted to be hypotensive. She did receive some IV fluids in the emergency room and although her blood pressure did improve slightly it had not quite normalized. Norepinephrine was she was admitted to the hospital and initially was started on dexamethasone. Ordered but before it could be initiated to treat the hypotension her blood pressure did normalize. Her blood pressure remained at or above the goal so the norepinephrine was never initiated. Th dexamethasone wase discontinued after the first dose because she did not have any hypoxia. Her vital signs were stable. She was not having fevers. Her agitation improved and there were no significant behavior issues during the course of the hospital stay. She has done very well with stabilization of the vital signs. We have been holding her lisinopril but otherwise really have not provided much in the way of treatment during the course of her hospital stay. I believe she is stable and safe for discharge back to the shelter at this time. I am going to discontinue her lisinopril since her blood pressures have been normal without it. There is a chance that as she recovers further from the Covid that this may need to be restarted but as of now we are doing quite well without it. We did not make any medication changes to help with agitation of the seems to have settled down very nicely without significant intervention. She did have the positive Covid test as mentioned and this was collected on 02/07. She should quarantine for at least 10 days starting on 02/07 or longer depending on the facility protocol. At this time no specific treatment for the Covid is necessary as she has stable vital signs and has not been hypoxic. - Patient Instructions Diet: Regular Diet as Tolerated Activity: As Tolerated Showering/Bathing: May Shower Notify Provider of: Fever, Increased Pain Other/Special Instructions: 1. Stop taking your lisinopril. Your blood pressure has been normal without the medication but as you recover from Covid we may need to restart this medication. - Discharge Plan *PRESCRIPTION DRUG MONITORING PROGRAM REVIEWED*: Not Applicable *COPY OF PRESCRIPTION DRUG MONITORING REPORT IN PATIENT CACHORRO: Not Applicable Home Medications: Home Meds Acetaminophen [Tylenol Arthritis Pain] 650 mg PO Q6HR 09/08/18 [History] Alum Hydrox/Mag Hydrox/Simeth [Maalox Advanced] 30 ml PO ASDIRECTED PRN 09/08/18 [History] Aspirin [Halfprin] 81 mg PO DAILY 09/08/18 [History] Baclofen 10 mg PO TID 09/08/18 [History] Bisacodyl [Gentle Laxative] 10 mg RC ASDIRECTED PRN 09/08/18 [History] Calcium Carbonate/Vitamin D3 [Calcium Carbonate/Vitamin D 600 MG-200 Unit] 1 tab PO DAILY 09/08/18 [History] Dextromethorphan/guaiFENesin [Robitussin DM] 10 ml PO ASDIRECTED PRN 09/08/18 [History] Docusate Sodium 100 mg PO DAILY 09/08/18 [History] Loperamide [Imodium] 4 mg PO TID PRN 09/08/18 [History] Lutein/Minerals/Vit A,C & E [Ocuvite] 1 tab PO BID 09/08/18 [History] Magnesium Hydroxide [Milk of Magnesia] 30 ml PO TID PRN 09/08/18 [History] Multivitamin with Minerals [Multiple Vitamin] 1 tab PO DAILY 09/08/18 [History] Oxybutynin Chloride [Ditropan Xl] 5 mg PO DAILY 09/08/18 [History] Simvastatin 10 mg PO BEDTIME 09/08/18 [History] polyethylene glycoL 3350 [Polyethylene Glycol 3350] 17 gm PO DAILY 09/08/18 [History] Albuterol/Ipratropium [DuoNeb 3.0-0.5 MG/3 ML] 3 ml INH Q6HR PRN 06/15/19 [History] Melatonin 9 mg PO BEDTIME 02/08/20 [History] Sennosides/Docusate Sodium [Senna Plus 8.6-50 mg Tablet] 1 each PO ASDIRECTED 02/08/20 [History] Sertraline HCl 25 mg PO DAILY 02/08/20 [History] busPIRone [Buspar] 10 mg PO TID 02/08/20 [History] traZODone HCl [Trazodone HCl] 100 mg PO BEDTIME 02/08/20 [History] Oxygen Therapy Mode: Room Air Patient Handouts: COVID-19 Referrals: Jarad Vazquez MD [Physician] - - Discharge Summary/Plan Comment DC Time >30 min.: Yes (35-shelter discharge) - Patient Data Vitals - Most Recent: Last Vital Signs Temp 35.7 C L 02/11/20 08:00 Pulse 56 L 02/11/20 08:00 Resp 14 02/11/20 08:00 BP 125/56 L 02/11/20 08:00 Pulse Ox 94 L 02/11/20 08:00 Weight - Most Recent: 69.899 kg I&O - Last 24 hours: Intake & Output 02/10/20 02/11/20 02/11/20 22:59 06:59 14:59 Intake Total 75 Balance 75 Med Orders - Current: Current Medications Acetaminophen (Tylenol) 650 mg PO Q4H PRN PRN Reason: Pain (Mild 1-3)/fever Acetaminophen (Tylenol) 650 mg PO Q6HR [facility] Last Admin: 02/11/20 08:28 Dose: 650 mg Documented by: Aspirin (Halfprin) 81 mg PO DAILY [facility] Last Admin: 02/11/20 08:28 Dose: 81 mg Documented by: Buspirone HCl (Buspar) 10 mg PO TID [facility] Last Admin: 02/11/20 08:28 Dose: 10 mg Documented by: Enoxaparin Sodium (Lovenox) 30 mg SUBCUT BEDTIME [facility] Last Admin: 02/10/20 22:01 Dose: 30 mg Documented by: Haloperidol Lactate (Haldol) 1 mg IVPUSH Q2H PRN PRN Reason: Agitation Melatonin (Melatonin) 9 mg PO BEDTIME [facility] Last Admin: 02/10/20 22:00 Dose: 9 mg Documented by: Sertraline HCl (Zoloft) 25 mg PO DAILY [facility] Last Admin: 02/11/20 08:28 Dose: 25 mg Documented by: Simvastatin (Zocor) 10 mg PO BEDTIME [facility] Last Admin: 02/10/20 22:01 Dose: 10 mg Documented by: Sodium Chloride (Saline Flush) 10 ml FLUSH ASDIRECTED PRN PRN Reason: Keep Vein Open Trazodone HCl (Trazodone) 100 mg PO BEDTIME [facility] Last Admin: 02/10/20 22:00 Dose: 100 mg Documented by: Discontinued Medications Acetaminophen (Tylenol) 650 mg PO Q4H PRN PRN Reason: Fever Greater Than 101 Acetaminophen (Tylenol) 650 mg PO Q4H PRN PRN Reason: Pain (Mild 1-3)/fever Aspirin (Halfprin) 81 mg PO DAILY [facility] Buspirone HCl (Buspar) 10 mg PO TID [facility] Dexamethasone (Decadron) 6 mg IVPUSH DAILY [facility] Stop: 02/17/20 09:01 Last Admin: 02/08/20 21:51 Dose: 6 mg Documented by: Dexamethasone (Decadron) 6 mg IVPUSH Q24H [facility] Stop: 02/17/20 21:01 Remdesivir 200 mg/ Sodium (Chloride) 250 mls @ 250 mls/hr IV ONETIME ONE Stop: 02/08/20 20:23 Last Admin: 02/08/20 21:50 Dose: 250 mls/hr Documented by: Norepinephrine Bitartrate 4 mg (/ Dextrose/Water) 250 mls @ 7.5 mls/hr IV TITRATE [facility]; Protocol Remdesivir 100 mg/ Sodium (Chloride) 100 mls @ 100 mls/hr IV Q24H [facility] Stop: 02/12/20 21:59 Melatonin (Melatonin) 9 mg PO BEDTIME [facility] Non-Formulary Medication (Acetaminophen [Tylenol Arthritis Pain]) 650 mg PO Q6HR [facility] Non-Formulary Medication (Simvastatin [Simvastatin]) 10 mg PO BEDTIME [facility] Sertraline HCl (Zoloft) 25 mg PO DAILY [facility] Sodium Chloride (Saline Flush) 10 ml FLUSH ASDIRECTED PRN PRN Reason: Keep Vein Open Trazodone HCl (Trazodone) 100 mg PO BEDTIME [facility]
== END 2020-02-11 14:29 | DRG 177 ==
LOC: JP.ED 17:16 → JP.ICU 20:50 → JP.ED 22:31
PROVIDERS: ADMIT Family Medicine; ATTEND Internal Medicine
PROC: XW033E5 Introduction of Remdesivir Anti-infective into Peripheral Vein, Percutaneous Approach, New Technology Group 5 (ICD-10-PCS; principal; 2020-02-08)
PROC: 8E0ZXY6 Isolation (ICD-10-PCS; 2020-02-08)
DX: U07.1 COVID-19 (principal); H54.7 Unspecified visual loss; I10 Essential (primary) hypertension; J12.89 Other viral pneumonia; F31.9 Bipolar disorder, unspecified; F41.9 Anxiety disorder, unspecified; G35 Multiple sclerosis; I95.9 Hypotension, unspecified; R45.1 Restlessness and agitation; R32 Unspecified urinary incontinence; E78.5 Hyperlipidemia, unspecified; F03.90 Unspecified dementia, unspecified severity, without behavioral disturbance, psychotic disturbance, mood disturbance, and anxiety; R09.02 Hypoxemia; Z79.899 Other long term (current) drug therapy; Z79.82 Long term (current) use of aspirin; Z98.49 Cataract extraction status, unspecified eye; Z98.51 Tubal ligation status; Z90.49 Acquired absence of other specified parts of digestive tract; Z88.5 Allergy status to narcotic agent; Z88.8 Allergy status to other drugs, medicaments and biological substances
CPT/HCPCS: 36415; 71045 ×2; 80048; 80076; 82728; 82803; 83605; 83615; 84145; 85025; 85379; 86140; 87804 ×2; U0002; 36430; 80053; 83735; 85027; 86900; 86901; 99285-25; A9270-GY; J1100; J1650; J7050; P9017

== ENCOUNTER 2020-03-31 01:13 | Inpatient (IN) | payer MEDICARE ==
[2020-03-31] MEDS ORDERED: Sodium Chloride 0.9% 10 ML Syringe FLUSH PRN ×2 (01:39→02:47)
[2020-03-31] MEDS ORDERED: Sodium Chloride 0.9% 1,000 ML IV ONE (01:44)
--- NOTE | 2020-03-31 01:48 | EDM.PDOC ---
ED HPI GENERAL MEDICAL PROBLEM - General Chief Complaint: Respiratory Problem Stated Complaint: [facility] Time Seen by Provider: 03/31/20 01:38 Source of Information: Reports: Patient, EMS History Limitations: Reports: Altered Mental Status - History of Present Illness INITIAL COMMENTS - FREE TEXT/NARRATIVE: Smitha is an 80-year-old female presenting to the ED via [facility] from [facility] for evaluation of hypoxia and difficulty breathing. The patient is not really able to answer questions so getting information from her is limited, however, that her residential sent in information that the patient was found this evening to being more hypoxic and having difficulty breathing prompting them to bring her in for evaluation. She reportedly had a large emesis with chocolate pudding kind of consistency raising the question of a possible aspiration. The patient was hospitalized in the ICU in January 2020 for COVID- 19. The patient is afebrile but is tachypneic with accessory muscle use. She is tachycardic with a heart rate of 115 and hypotensive with a blood pressure of 98/54. - Related Data Allergies Allergy/AdvReac Type Severity Reaction Status Date / Time carbamazepine [From Tegretol] AdvReac Unknown Other Verified 03/31/20 01:49 codeine AdvReac Unknown Other Verified 03/31/20 01:49 valproic acid [From Depakene] AdvReac Unknown Other Verified 03/31/20 01:49 Home Meds: Home Meds Acetaminophen [Tylenol Arthritis Pain] 650 mg PO Q6HR 09/08/18 [History] Alum Hydrox/Mag Hydrox/Simeth [Maalox Advanced] 30 ml PO ASDIRECTED PRN 09/08/18 [History] Aspirin [Halfprin] 81 mg PO DAILY 09/08/18 [History] Baclofen 10 mg PO TID 09/08/18 [History] Bisacodyl [Gentle Laxative] 10 mg RC ASDIRECTED PRN 09/08/18 [History] Calcium Carbonate/Vitamin D3 [Calcium Carbonate/Vitamin D 600 MG-200 Unit] 1 tab PO DAILY 09/08/18 [History] Dextromethorphan/guaiFENesin [Robitussin DM] 10 ml PO ASDIRECTED PRN 09/08/18 [History] Docusate Sodium 100 mg PO DAILY 09/08/18 [History] Loperamide [Imodium] 4 mg PO TID PRN 09/08/18 [History] Lutein/Minerals/Vit A,C & E [Ocuvite] 1 tab PO BID 09/08/18 [History] Magnesium Hydroxide [Milk of Magnesia] 30 ml PO TID PRN 09/08/18 [History] Multivitamin with Minerals [Multiple Vitamin] 1 tab PO DAILY 09/08/18 [History] Oxybutynin Chloride [Ditropan Xl] 5 mg PO DAILY 09/08/18 [History] Simvastatin 10 mg PO BEDTIME 09/08/18 [History] polyethylene glycoL 3350 [Polyethylene Glycol 3350] 17 gm PO DAILY 09/08/18 [History] Albuterol/Ipratropium [DuoNeb 3.0-0.5 MG/3 ML] 3 ml INH Q6HR PRN 06/15/19 [History] Melatonin 9 mg PO BEDTIME 02/08/20 [History] Sennosides/Docusate Sodium [Senna Plus 8.6-50 mg Tablet] 1 each PO ASDIRECTED 02/08/20 [History] Sertraline HCl 25 mg PO DAILY 02/08/20 [History] busPIRone [Buspar] 10 mg PO TID 02/08/20 [History] traZODone HCl [Trazodone HCl] 100 mg PO BEDTIME 02/08/20 [History] Past Medical History HEENT History: Reports: Allergic Rhinitis, Impaired Vision, Macular Degeneration Cardiovascular History: Reports: Hypertension Respiratory History: Reports: None Gastrointestinal History: Reports: None Genitourinary History: Reports: Neurogenic Bladder, Urinary Incontinence, UTI, Recurrent [employer] History: Reports: Musculoskeletal History: Reports: Fracture, Osteoporosis, Other (See Below) Other Musculoskeletal History: right ankle fx 09/08/18. generalized muscle weakness Neurological History: Reports: MS, Other (See Below) Psychiatric History: Reports: Anxiety, Depression Endocrine/Metabolic History: Reports: None, Obesity/BMI 30+ Hematologic History: Reports: None Immunologic History: Reports: None Oncologic (Cancer) History: Reports: None Dermatologic History: Reports: Other (See Below) Other Dermatologic History: parasthesia of skin - Infectious Disease History Infectious Disease History: Reports: Chicken Pox - Past Surgical History HEENT Surgical History: Reports: Cataract Surgery Cardiovascular Surgical History: Reports: None GI Surgical History: Reports: Appendectomy Female Surgical History: Reports: Tubal Ligation Musculoskeletal Surgical History: Reports: None Dermatological Surgical History: Reports: None Social & Family History - Tobacco Use Tobacco Use Status *Q: Former Tobacco User Used Tobacco, but Quit: Yes Month/Year Tobacco Last Used: 2009 - Caffeine Use Caffeine Use: Reports: Coffee, Soda - Recreational Drug Use Recreational Drug Use: No ED ROS GENERAL - Review of Systems Review Of Systems: Unable To Obtain Reason Not Obtained: Patient has respiratory difficulty and not answering questions Constitutional: Denies: Fever Respiratory: Reports: Shortness of Breath, Cough GI/Abdominal: Reports: Vomiting ED EXAM, GENERAL - Physical Exam Exam: See Below Exam Limited By: Altered Mental Status General Appearance: Alert, Anxious, Moderate Distress Eye Exam: Bilateral Eye: PERRL Head: Atraumatic, Normocephalic Neck: Normal Inspection, Supple. No: Carotid Bruit, Lymphadenopathy (R), Lymphadenopathy (L) Respiratory/Chest: Chest Non-Tender, Respiratory Distress (With tachypnea and hypoxia. SPO2 was 80% on room air.), Rhonchi (Coarse rhonchi in the right base), Accessory Muscle Use Cardiovascular: Regular Rate, Rhythm, No Edema, No Murmur, Tachycardia. No: JVD, Diastolic Murmur, Systolic Murmur Peripheral Pulses: 2+: Radial (L), Radial (R), Posterior Tibial (L), Posterior Tibial (R) GI/Abdominal: Normal Bowel Sounds, Soft, Non-Tender. No: Guarding, Rigid, Rebound Extremities: Non-Tender, No Pedal Edema, Normal Capillary Refill Neurological: Alert, Inattentive, Slow to Respond Skin Exam: Warm, Dry, Intact Lymphatic: No Adenopathy Course - Vital Signs Last Recorded V/S: Last Vital Signs Temp 37.0 C 03/31/20 01:13 Pulse 117 H 03/31/20 01:13 Resp 22 H 03/31/20 01:13 BP 108/56 L 03/31/20 01:13 Pulse Ox 89 L 03/31/20 01:13 - Orders/Labs/Meds Orders: Active Orders 24 hr Category Date Time Status Chest 1V Frontal [CR] Stat Exams 03/31/20 01:39 Ordered CULTURE BLOOD [BC] Urgent Lab 03/31/20 01:40 Ordered CULTURE BLOOD [BC] Urgent Lab 03/31/20 01:40 Ordered CULTURE URINE [RM] Stat Lab 03/31/20 02:53 Ordered LACTIC ACID [CHEM] Stat Lab 03/31/20 03:30 Ordered Sodium Chloride 0.9% [Normal Saline] 1,000 ml Med 03/31/20 01:44 Active IV .BOLUS Sodium Chloride 0.9% [Saline Flush] Med 03/31/20 01:39 Ordered 10 ml FLUSH ASDIRECTED PRN Sodium Chloride 0.9% [Saline Flush] Med 03/31/20 02:47 Ordered 10 ml FLUSH ASDIRECTED PRN Vancomycin 1 gm Med 03/31/20 02:47 Ordered Sodium Chloride 0.9% [Normal Saline] 250 ml IV STAT cefTRIAXone [Rocephin] 1 gm Med 03/31/20 02:47 Ordered Sodium Chloride 0.9% [Normal Saline] 50 ml IV STAT Blood Culture x2 Reflex Set [OM.PC] Urgent Oth 03/31/20 01:39 Ordered Saline Lock Insert [OM.PC] Routine Oth 03/31/20 01:39 Ordered Saline Lock Insert [OM.PC] Stat Oth 03/31/20 02:47 Ordered Severe Sepsis Onset Time [OM.PC] Stat Oth 03/31/20 02:47 Ordered Medication Orders Sodium Chloride (Normal Saline) 1,000 mls @ 500 mls/hr IV .BOLUS ONE Stop: 03/31/20 03:43 Last Admin: 03/31/20 02:05 Dose: 500 mls/hr Documented by: ESTRADA Vancomycin HCl 1 gm/ Sodium (Chloride) 250 mls @ 167 mls/hr IV STAT ONE Stop: 03/31/20 04:16 Ceftriaxone Sodium 1 gm/ (Sodium Chloride) 50 mls @ 100 mls/hr IV STAT ONE Stop: 03/31/20 03:16 Sodium Chloride (Saline Flush) 10 ml FLUSH ASDIRECTED PRN PRN Reason: Keep Vein Open Last Admin: 03/31/20 02:06 Dose: 10 ml Documented by: RAZA Sodium Chloride (Saline Flush) 10 ml FLUSH ASDIRECTED PRN PRN Reason: Keep Vein Open Labs: Laboratory Tests 03/31/20 03/31/20 03/31/20 Range/Units 02:00 02:00 02:00 WBC 13.4 H (4.5-11.0) K/uL RBC 4.51 (3.30-5.50) M/uL Hgb 11.9 L (12.0-15.0) g/dL Hct 39.8 (36.0-48.0) % MCV 88 (80-98) fL MCH 26 L (27-31) pg MCHC 30 L (32-36) % Plt Count 100 L (150-400) K/uL Neut % (Auto) 98 H (36-66) % Lymph % (Auto) 1 L (24-44) % [place] % (Auto) 0 L (2-6) % Eos % (Auto) 0 L (2-4) % Baso % (Auto) 0 (0-1) % Puncture Site ABG pH (7.350-7.450) ABG pCO2 (35.0-42.0) mmHg ABG pO2 (75.0-100.0) mmHg ABG HCO3 (22.0-26.0) mmol/L ABG Total CO2 (21.0-25.0) mmol/L ABG O2 Saturation (95.0-98.0) % ABG O2 Content (15.0-23.0) %vol ABG Base Excess mm/L ABG Hemoglobin (12.0-16.0) g/dL ABG Oxyhemoglobin % ABG Carboxyhemoglobin (0.0-1.6) % ABG Methemoglobin % O2 Delivery Device Oxygen Flow Rate L Sodium 147 (140-148) mmol/L Potassium 3.1 L (3.6-5.2) mmol/L Chloride 108 (100-108) mmol/L Carbon Dioxide 24 (21-32) mmol/L Anion Gap 18.1 H (5.0-14.0) mmol/L BUN 33 H (7-18) mg/dL Creatinine 1.4 H (0.6-1.0) mg/dL Est Cr Clr Drug Dosing 22.64 mL/min Estimated GFR (MDRD) 36 L (>60) Glucose 138 H (74-106) mg/dL Lactic Acid 2.5 H (0.4-2.0) mmol/L Calcium 9.1 (8.5-10.1) mg/dL Total Bilirubin 0.9 D (0.2-1.0) mg/dL AST 43 H (15-37) U/L ALT 42 (12-78) U/L Alkaline Phosphatase 288 H D (46-116) U/L Troponin I < 0.017 (0.000-0.056) ng/mL C-Reactive Protein 12.38 H (0.0-0.3) mg/dL Total Protein 6.5 (6.4-8.2) g/dL Albumin 2.9 L (3.4-5.0) g/dL Globulin 3.6 H (2.3-3.5) g/dL Albumin/Globulin Ratio 0.8 L (1.2-2.2) Urine Color (YELLOW) Urine Appearance (CLEAR) Urine pH (5.0-8.0) Ur Specific Sproul (1.008-1.030) Urine Protein (NEGATIVE) mg/dL Urine Glucose (UA) (NEGATIVE) mg/dL Urine Ketones (NEGATIVE) mg/dL Urine Occult Blood (NEGATIVE) Urine Nitrite (NEGATIVE) Urine Bilirubin (NEGATIVE) Urine Urobilinogen (0.2-1.0) EU/dL Ur Leukocyte Esterase (NEGATIVE) Urine RBC (0-5) Urine WBC (0-5) Ur Epithelial Cells Urine Bacteria 03/31/20 03/31/20 Range/Units 02:00 02:15 WBC (4.5-11.0) K/uL RBC (3.30-5.50) M/uL Hgb (12.0-15.0) g/dL Hct (36.0-48.0) % MCV (80-98) fL MCH (27-31) pg MCHC (32-36) % Plt Count (150-400) K/uL Neut % (Auto) (36-66) % Lymph % (Auto) (24-44) % Bo[place] % (Auto) (2-6) % Eos % (Auto) (2-4) % Baso % (Auto) (0-1) % Puncture Site R radial ABG pH 7.437 (7.350-7.450) ABG pCO2 35.0 (35.0-42.0) mmHg ABG pO2 74.6 L (75.0-100.0) mmHg ABG HCO3 23.2 (22.0-26.0) mmol/L ABG Total CO2 20.9 L (21.0-25.0) mmol/L ABG O2 Saturation 94.6 L (95.0-98.0) % ABG O2 Content 15.8 (15.0-23.0) %vol ABG Base Excess -0.1 mm/L ABG Hemoglobin 12.1 (12.0-16.0) g/dL ABG Oxyhemoglobin 92.3 % ABG Carboxyhemoglobin 1.4 (0.0-1.6) % ABG Methemoglobin 1.0 % O2 Delivery Device Nasal cannula Oxygen Flow Rate 2.0 L Sodium (140-148) mmol/L Potassium (3.6-5.2) mmol/L Chloride (100-108) mmol/L Carbon Dioxide (21-32) mmol/L Anion Gap (5.0-14.0) mmol/L BUN (7-18) mg/dL Creatinine (0.6-1.0) mg/dL Est Cr Clr Drug Dosing mL/min Estimated GFR (MDRD) (>60) Glucose (74-106) mg/dL Lactic Acid (0.4-2.0) mmol/L Calcium (8.5-10.1) mg/dL Total Bilirubin (0.2-1.0) mg/dL AST (15-37) U/L ALT (12-78) U/L Alkaline Phosphatase (46-116) U/L Troponin I (0.000-0.056) ng/mL C-Reactive Protein (0.0-0.3) mg/dL Total Protein (6.4-8.2) g/dL Albumin (3.4-5.0) g/dL Globulin (2.3-3.5) g/dL Albumin/Globulin Ratio (1.2-2.2) Urine Color Yellow (YELLOW) Urine Appearance Cloudy A (CLEAR) Urine pH 7.0 (5.0-8.0) Ur Specific [place] 1.020 (1.008-1.030) Urine Protein 100 H (NEGATIVE) mg/dL Urine Glucose (UA) Negative (NEGATIVE) mg/dL Urine Ketones Negative (NEGATIVE) mg/dL Urine Occult Blood Large H (NEGATIVE) Urine Nitrite Positive H (NEGATIVE) Urine Bilirubin Negative (NEGATIVE) Urine Urobilinogen 1.0 (0.2-1.0) EU/dL Ur Leukocyte Esterase Small H (NEGATIVE) Urine RBC >100 H (0-5) Urine WBC 50-75 H (0-5) Ur Epithelial Cells Few Urine Bacteria Many Meds: Medications Generic Name Dose Route Start Last Admin Trade Name Freq PRN Reason Stop Dose Admin Sodium Chloride 1,000 mls @ 500 mls/hr 03/31/20 01:44 03/31/20 02:05 Normal Saline IV 03/31/20 03:43 500 mls/hr .BOLUS ONE Administration Vancomycin HCl 1 gm/ Sodium 250 mls @ 167 mls/hr 03/31/20 02:47 Chloride IV 03/31/20 04:16 STAT ONE Ceftriaxone Sodium 1 gm/ 50 mls @ 100 mls/hr 03/31/20 02:47 Sodium Chloride IV 03/31/20 03:16 STAT ONE Sodium Chloride 10 ml 03/31/20 01:39 03/31/20 02:06 Saline Flush FLUSH 10 ml ASDIRECTED PRN Administration Keep Vein Open Sodium Chloride 10 ml 03/31/20 02:47 Saline Flush FLUSH ASDIRECTED PRN Keep Vein Open - Re-Assessments/Exams Free Text/Narrative Re-Assessment/Exam: 03/31/20 02:58 we initiated sepsis measures with IV establishment and resuscitation with normal saline 1 L IV initially at 500 cc/h but up to 999 cc/h when her blood pressure dropped to 100/53. The patient's initial lactate is 2.5. An ABG was obtained on 2 L nasal cannula with a pH of 7.43, PCO2 of 35, PO2 of 74.6, and HCO3 of 20.9. Her C-reactive protein is elevated at 12.38. CBC shows a leukocytosis at 13.4 with 98% neutrophils. Her hemoglobin is 11 1 with a hematocrit of 39.8 and a platelet count of 100,000. She is mildly hypokalemic at 3.1 with a BUN of 33 and a creatinine of 1.4. Urinalysis is significant for positive nitrites with greater than 100 RBCs and 50-75 WBCs. The urine was quite odiferous and turbid and is likely partially to blame for her sepsis. Because of the hypoxia and the earlier emesis, I am concerned that she may be developing a aspiration pneumonia. A chest x-ray is obtained as a portable but does not show the bases as well as I would like, however, there was no obvious infiltrates observed. We initiated antibiotic therapy with vancomycin 1 g IV and ceftriaxone 1 g IV after blood cultures and urine culture were obtained. At this time, I believe that we should admit the patient for further care. I will discuss the case with Dr. Gutiérrez to arrange this. We will repeat the venous lactate after the initial liter infusion (15 mL/kg) is complete. The patient has maintained a mean arterial pressure greater than 60 so she has not required the higher level of fluid resuscitation. Departure - Departure Time of Disposition: 03:01 Disposition: Admitted As Inpatient 65 Condition: Fair Clinical Impression: Hypokalemia, Multiple sclerosis, secondary progressive, Neurogenic bladder Sepsis Qualifiers: Sepsis type: sepsis due to unspecified organism Sepsis acute organ dysfunction status: without acute organ dysfunction Qualified Code(s): A41.9 - Sepsis, unspecified organism Aspiration pneumonia due to food (regurgitated) Qualifiers: Laterality: right Lung location: lower lobe of lung Qualified Code(s): J69.0 - Pneumonitis due to inhalation of food and vomit Urinary tract infection Qualifiers: Urinary tract infection type: site unspecified Hematuria presence: with hematuria Qualified Code(s): N39.0 - Urinary tract infection, site not specified; R31.9 - Hematuria, unspecified - Discharge Information *PRESCRIPTION DRUG MONITORING PROGRAM REVIEWED*: Not Applicable *COPY OF PRESCRIPTION DRUG MONITORING REPORT IN PATIENT CACHORRO: Not Applicable Referrals: PCP,None [Primary Care Provider] - Forms: ED Department Discharge Care Plan Goals: I discussed the case with Dr. Shi we will plan on admitting her for further care. Sepsis Event Note (ED) - Evaluation Sepsis Screening Result: Possible Sepsis Risk - Focused Exam Vital Signs: Vital Signs Temp Pulse Resp BP Pulse Ox 03/31/20 01:13 37.0 C 117 H 22 H 108/56 L 89 L - Problem List & Annotations (1) Aspiration pneumonia due to food (regurgitated) SNOMED Code(s): 96925829 Code(s): J69.0 - PNEUMONITIS DUE TO INHALATION OF FOOD AND VOMIT Status: Acute Priority: High Current Visit: Yes Qualifiers: Laterality: right Lung location: lower lobe of lung Qualified Code(s): J69.0 - Pneumonitis due to inhalation of food and vomit (2) Hypokalemia SNOMED Code(s): 90897389 Code(s): E87.6 - HYPOKALEMIA Status: Acute Priority: Medium Current Visit: Yes (3) Sepsis SNOMED Code(s): 15534993 Code(s): A41.9 - SEPSIS, UNSPECIFIED ORGANISM Status: Acute Priority: High Current Visit: Yes Qualifiers: Sepsis type: sepsis due to unspecified organism Sepsis acute organ dysfunction status: without acute organ dysfunction Qualified Code(s): A41.9 - Sepsis, unspecified organism (4) Urinary tract infection SNOMED Code(s): 46413607 Code(s): N39.0 - URINARY TRACT INFECTION, SITE NOT SPECIFIED Status: Acute Priority: High Current Visit: Yes Qualifiers: Urinary tract infection type: site unspecified Hematuria presence: with hematuria Qualified Code(s): N39.0 - Urinary tract infection, site not specified; R31.9 - Hematuria, unspecified (5) Multiple sclerosis, secondary progressive SNOMED Code(s): 400801641 Code(s): G35 - MULTIPLE SCLEROSIS Status: Chronic Priority: Medium Current Visit: Yes (6) Neurogenic bladder SNOMED Code(s): 482495509 Code(s): N31.9 - NEUROMUSCULAR DYSFUNCTION OF BLADDER, UNSPECIFIED Status: Chronic Priority: Medium Current Visit: Yes - Problem List Review Problem List Initiated/Reviewed/Updated: Yes - My Orders Last 24 Hours: My Active Orders 03/31/20 01:39 Chest 1V Frontal [CR] Stat Sodium Chloride 0.9% [Saline Flush] 10 ml FLUSH ASDIRECTED PRN Blood Culture x2 Reflex Set [OM.PC] Urgent Saline Lock Insert [OM.PC] Routine 03/31/20 01:40 CULTURE BLOOD [BC] Urgent CULTURE BLOOD [BC] Urgent 03/31/20 01:44 Sodium Chloride 0.9% [Normal Saline] 1,000 ml IV .BOLUS 03/31/20 02:47 Sodium Chloride 0.9% [Saline Flush] 10 ml FLUSH ASDIRECTED PRN Vancomycin 1 gm Sodium Chloride 0.9% [Normal Saline] 250 ml IV STAT cefTRIAXone [Rocephin] 1 gm Sodium Chloride 0.9% [Normal Saline] 50 ml IV STAT Saline Lock Insert [OM.PC] Stat Severe Sepsis Onset Time [OM.PC] Stat 03/31/20 02:53 CULTURE URINE [RM] Stat 03/31/20 03:30 LACTIC ACID [CHEM] Stat - Assessment/Plan Last 24 Hours: My Active Orders 03/31/20 01:39 Chest 1V Frontal [CR] Stat Sodium Chloride 0.9% [Saline Flush] 10 ml FLUSH ASDIRECTED PRN Blood Culture x2 Reflex Set [OM.PC] Urgent Saline Lock Insert [OM.PC] Routine 03/31/20 01:40 CULTURE BLOOD [BC] Urgent CULTURE BLOOD [BC] Urgent 03/31/20 01:44 Sodium Chloride 0.9% [Normal Saline] 1,000 ml IV .BOLUS 03/31/20 02:47 Sodium Chloride 0.9% [Saline Flush] 10 ml FLUSH ASDIRECTED PRN Vancomycin 1 gm Sodium Chloride 0.9% [Normal Saline] 250 ml IV STAT cefTRIAXone [Rocephin] 1 gm Sodium Chloride 0.9% [Normal Saline] 50 ml IV STAT Saline Lock Insert [OM.PC] Stat Severe Sepsis Onset Time [OM.PC] Stat 03/31/20 02:53 CULTURE URINE [RM] Stat 03/31/20 03:30 LACTIC ACID [CHEM] Stat
[2020-03-31] MEDS ORDERED: cefTRIAXone 1 GM in Sodium Chloride 0.9% 50 ML IV ONE (02:47)
--- NOTE | 2020-03-31 04:13 | PCM.HP.2 ---
H&P History of Present Illness - General Date of Service: 03/31/20 Admit Problem/Dx: Admission Diagnosis/Problem Admission Diagnosis/Problem Aspiration pneumonia Source of Information: Patient, Long Term Records, Provider History Limitations: Reports: Altered Mental Status - History of Present Illness Initial Comments - Free Text/Narative: CC: hypoxia HPI: Samira presents to the emergency room today after staff at the group home noted that she was hypoxic. senior care notes report that she had a large emesis earlier in the evening and has been having some respiratory difficulty since that time. History is a little bit difficult to gather but Samira tells me that she feels fine right now. She does not recall the episode of vomiting. She is not sure why she is here. She does not feel short of breath. She has not been coughing. She does not think she has had any fevers. No reports of abdominal pain. No dysuria or increased urinary frequency. She does not feel weak. She says that she does not have any difficulty with swallowing foods. She is a group home resident because of her end-stage multiple sclerosis. Work-up in the emergency room revealed evidence for urinary tract infection as well as probable aspiration pneumonia, hypoxic respiratory failure and sepsis. She has received IV fluids, cultures have been obtained and antibiotics initi ated. She is going to be admitted for further management. - Related Data Allergies/Adverse Reactions: Allergies Allergy/AdvReac Type Severity Reaction Status Date / Time carbamazepine [From Tegretol] AdvReac Unknown Other Verified 03/31/20 01:49 codeine AdvReac Unknown Other Verified 03/31/20 01:49 valproic acid [From Depakene] AdvReac Unknown Other Verified 03/31/20 01:49 Home Medications: Home Meds Acetaminophen [Tylenol Arthritis Pain] 650 mg PO Q6HR 09/08/18 [History] Alum Hydrox/Mag Hydrox/Simeth [Maalox Advanced] 30 ml PO ASDIRECTED PRN 09/08/18 [History] Aspirin [Halfprin] 81 mg PO DAILY 09/08/18 [History] Baclofen 10 mg PO TID 09/08/18 [History] Bisacodyl [Gentle Laxative] 10 mg RC ASDIRECTED PRN 09/08/18 [History] Calcium Carbonate/Vitamin D3 [Calcium Carbonate/Vitamin D 600 MG-200 Unit] 1 tab PO DAILY 09/08/18 [History] Dextromethorphan/guaiFENesin [Robitussin DM] 10 ml PO ASDIRECTED PRN 09/08/18 [History] Docusate Sodium 100 mg PO DAILY 09/08/18 [History] Loperamide [Imodium] 4 mg PO TID PRN 09/08/18 [History] Lutein/Minerals/Vit A,C & E [Ocuvite] 1 tab PO BID 09/08/18 [History] Magnesium Hydroxide [Milk of Magnesia] 30 ml PO TID PRN 09/08/18 [History] Multivitamin with Minerals [Multiple Vitamin] 1 tab PO DAILY 09/08/18 [History] Oxybutynin Chloride [Ditropan Xl] 5 mg PO DAILY 09/08/18 [History] Simvastatin 10 mg PO BEDTIME 09/08/18 [History] polyethylene glycoL 3350 [Polyethylene Glycol 3350] 17 gm PO DAILY 09/08/18 [History] Albuterol/Ipratropium [DuoNeb 3.0-0.5 MG/3 ML] 3 ml INH Q6HR PRN 06/15/19 [History] Melatonin 9 mg PO BEDTIME 02/08/20 [History] Sennosides/Docusate Sodium [Senna Plus 8.6-50 mg Tablet] 1 each PO ASDIRECTED 02/08/20 [History] Sertraline HCl 25 mg PO DAILY 02/08/20 [History] busPIRone [Buspar] 10 mg PO TID 02/08/20 [History] traZODone HCl [Trazodone HCl] 100 mg PO BEDTIME 02/08/20 [History] Past Medical History HEENT History: Reports: Allergic Rhinitis, Impaired Vision, Macular Degeneration Cardiovascular History: Reports: High Cholesterol, Hypertension Respiratory History: Reports: None Gastrointestinal History: Reports: None, Other (See Below) Other Gastrointestinal History: dysphagia Genitourinary History: Reports: Neurogenic Bladder, Urinary Incontinence, UTI, Recurrent [employer] History: Reports: Musculoskeletal History: Reports: Fracture, Osteoporosis, Other (See Below) Other Musculoskeletal History: right ankle fx 09/08/18. generalized muscle weakness Neurological History: Reports: MS, Other (See Below) Psychiatric History: Reports: Anxiety, Depression Endocrine/Metabolic History: Reports: None, Obesity/BMI 30+ Hematologic History: Reports: None Immunologic History: Reports: None Oncologic (Cancer) History: Reports: None Dermatologic History: Reports: Other (See Below) Other Dermatologic History: parasthesia of skin - Infectious Disease History Infectious Disease History: Reports: Chicken Pox - Past Surgical History HEENT Surgical History: Reports: Cataract Surgery Cardiovascular Surgical History: Reports: None GI Surgical History: Reports: Appendectomy Female Surgical History: Reports: Tubal Ligation Musculoskeletal Surgical History: Reports: None Dermatological Surgical History: Reports: None Social & Family History - Tobacco Use Tobacco Use Status *Q: Former Tobacco User Used Tobacco, but Quit: Yes Month/Year Tobacco Last Used: 2009 - Caffeine Use Caffeine Use: Reports: Coffee, Soda - Recreational Drug Use Recreational Drug Use: No H&P Review of Systems - Review of Systems: Review Of Systems: See Below Free Text/Narrative: A complete 12 point review of systems was obtained. Pertinent positives and negatives are noted in the history of present illness. All other systems were reviewed and were negative except as noted. Exam - Exam Exam: See Below - Vital Signs Vital Signs: Last Vital Signs Temp 37.0 C 03/31/20 01:13 Pulse 117 H 03/31/20 01:13 Resp 22 H 03/31/20 01:13 BP 108/56 L 03/31/20 01:13 Pulse Ox 89 L 03/31/20 01:13 Weight: 70.896 kg - Exam Quality Assessment: Supplemental Oxygen General: Alert, Cooperative. No: Oriented, Mild Distress HEENT: Conjunctiva Clear. No: Mucosa Moist & [place] (Dry), Scleral Icterus Neck: Supple, Trachea Midline Lungs: Normal Respiratory Effort (Mild tachypnea), Decreased Breath Sounds (Right lung base), Crackles (Right lung base, coarse), Rhonchi (Upper respiratory rhonchi noted right greater than left) Cardiovascular: Regular Rhythm, Tachycardia. No: Systolic Murmur GI/Abdominal Exam: Normal Bowel Sounds, Soft, Non-Tender, No Distention Extremities: No Pedal Edema. No: Increased Warmth Peripheral Pulses: 2+: Dorsalis Pedis (L), Dorsalis Pedis (R) Skin: Warm, Dry. No: Rash Neuro Extensive - Mental Status: Alert, Nl Response to Commands. No: Oriented x3 Neuro Extensive - Motor, Sensory, Reflexes: Abnormal Motor. No: Dysarthria, Tremor Psychiatric: Alert. No: Agitated - Patient Data Lab Results Last 24 hrs: Laboratory Results - last 24 hr 03/31/20 03/31/20 03/31/20 Range/Units 02:00 02:00 02:00 WBC 13.4 H (4.5-11.0) K/uL RBC 4.51 (3.30-5.50) M/uL Hgb 11.9 L (12.0-15.0) g/dL Hct 39.8 (36.0-48.0) % MCV 88 (80-98) fL MCH 26 L (27-31) pg MCHC 30 L (32-36) % Plt Count 100 L (150-400) K/uL Neut % (Auto) 98 H (36-66) % Lymph % (Auto) 1 L (24-44) % [place] % (Auto) 0 L (2-6) % Eos % (Auto) 0 L (2-4) % Baso % (Auto) 0 (0-1) % Puncture Site ABG pH (7.350-7.450) ABG pCO2 (35.0-42.0) mmHg ABG pO2 (75.0-100.0) mmHg ABG HCO3 (22.0-26.0) mmol/L ABG Total CO2 (21.0-25.0) mmol/L ABG O2 Saturation (95.0-98.0) % ABG O2 Content (15.0-23.0) %vol ABG Base Excess mm/L ABG Hemoglobin (12.0-16.0) g/dL ABG Oxyhemoglobin % ABG Carboxyhemoglobin (0.0-1.6) % ABG Methemoglobin % O2 Delivery Device Oxygen Flow Rate L Sodium 147 (140-148) mmol/L Potassium 3.1 L (3.6-5.2) mmol/L Chloride 108 (100-108) mmol/L Carbon Dioxide 24 (21-32) mmol/L Anion Gap 18.1 H (5.0-14.0) mmol/L BUN 33 H (7-18) mg/dL Creatinine 1.4 H (0.6-1.0) mg/dL Est Cr Clr Drug Dosing 22.64 mL/min Estimated GFR (MDRD) 36 L (>60) Glucose 138 H (74-106) mg/dL Lactic Acid 2.5 H (0.4-2.0) mmol/L Calcium 9.1 (8.5-10.1) mg/dL Total Bilirubin 0.9 D (0.2-1.0) mg/dL AST 43 H (15-37) U/L ALT 42 (12-78) U/L Alkaline Phosphatase 288 H D (46-116) U/L Troponin I < 0.017 (0.000-0.056) ng/mL C-Reactive Protein 12.38 H (0.0-0.3) mg/dL Total Protein 6.5 (6.4-8.2) g/dL Albumin 2.9 L (3.4-5.0) g/dL Globulin 3.6 H (2.3-3.5) g/dL Albumin/Globulin Ratio 0.8 L (1.2-2.2) Urine Color (YELLOW) Urine Appearance (CLEAR) Urine pH (5.0-8.0) Ur Specific [place] (1.008-1.030) Urine Protein (NEGATIVE) mg/dL Urine Glucose (UA) (NEGATIVE) mg/dL Urine Ketones (NEGATIVE) mg/dL Urine Occult Blood (NEGATIVE) Urine Nitrite (NEGATIVE) Urine Bilirubin (NEGATIVE) Urine Urobilinogen (0.2-1.0) EU/dL Ur Leukocyte Esterase (NEGATIVE) Urine RBC (0-5) Urine WBC (0-5) Ur Epithelial Cells Urine Bacteria 03/31/20 03/31/20 03/31/20 Range/Units 02:00 02:15 03:30 WBC (4.5-11.0) K/uL RBC (3.30-5.50) M/uL Hgb (12.0-15.0) g/dL Hct (36.0-48.0) % MCV (80-98) fL MCH (27-31) pg MCHC (32-36) % Plt Count (150-400) K/uL Neut % (Auto) (36-66) % Lymph % (Auto) (24-44) % [place] % (Auto) (2-6) % Eos % (Auto) (2-4) % Baso % (Auto) (0-1) % Puncture Site R radial ABG pH 7.437 (7.350-7.450) ABG pCO2 35.0 (35.0-42.0) mmHg ABG pO2 74.6 L (75.0-100.0) mmHg ABG HCO3 23.2 (22.0-26.0) mmol/L ABG Total CO2 20.9 L (21.0-25.0) mmol/L ABG O2 Saturation 94.6 L (95.0-98.0) % ABG O2 Content 15.8 (15.0-23.0) %vol ABG Base Excess -0.1 mm/L ABG Hemoglobin 12.1 (12.0-16.0) g/dL ABG Oxyhemoglobin 92.3 % ABG Carboxyhemoglobin 1.4 (0.0-1.6) % ABG Methemoglobin 1.0 % O2 Delivery Device Nasal cannula Oxygen Flow Rate 2.0 L Sodium (140-148) mmol/L Potassium (3.6-5.2) mmol/L Chloride (100-108) mmol/L Carbon Dioxide (21-32) mmol/L Anion Gap (5.0-14.0) mmol/L BUN (7-18) mg/dL Creatinine (0.6-1.0) mg/dL Est Cr Clr Drug Dosing mL/min Estimated GFR (MDRD) (>60) Glucose (74-106) mg/dL Lactic Acid 2.2 H (0.4-2.0) mmol/L Calcium (8.5-10.1) mg/dL Total Bilirubin (0.2-1.0) mg/dL AST (15-37) U/L ALT (12-78) U/L Alkaline Phosphatase (46-116) U/L Troponin I (0.000-0.056) ng/mL C-Reactive Protein (0.0-0.3) mg/dL Total Protein (6.4-8.2) g/dL Albumin (3.4-5.0) g/dL Globulin (2.3-3.5) g/dL Albumin/Globulin Ratio (1.2-2.2) Urine Color Yellow (YELLOW) Urine Appearance Cloudy A (CLEAR) Urine pH 7.0 (5.0-8.0) Ur Specific [place] 1.020 (1.008-1.030) Urine Protein 100 H (NEGATIVE) mg/dL Urine Glucose (UA) Negative (NEGATIVE) mg/dL Urine Ketones Negative (NEGATIVE) mg/dL Urine Occult Blood Large H (NEGATIVE) Urine Nitrite Positive H (NEGATIVE) Urine Bilirubin Negative (NEGATIVE) Urine Urobilinogen 1.0 (0.2-1.0) EU/dL Ur Leukocyte Esterase Small H (NEGATIVE) Urine RBC >100 H (0-5) Urine WBC 50-75 H (0-5) Ur Epithelial Cells Few Urine Bacteria Many Result Diagrams: 03/31/20 02:00 03/31/20 02:00 Imaging Impressions Last 24 hrs: AP chest [id number] personally reviewed-no obvious mass, infiltrate or effusion. She has a very shallow inspiration. Heart size appears normal. Sepsis Event Note - Evaluation Sepsis Screening Result: Possible Sepsis Risk Current Stage of Sepsis: Sepsis Possible Source of Sepsis: Pulmonary - Focused Exam Sepsis Event Note Statement: Focused Sepsis Exam Completed Vital Signs: Vital Signs Temp Pulse Resp BP Pulse Ox 03/31/20 01:13 37.0 C 117 H 22 H 108/56 L 89 L Respiratory Effort Without Exertion: Other (see below) (Tachypnea) Heart Sounds: Other (see below) (Tachycardic) Capillary Refill, Detail: Less than/Equal to (</=) 2 Seconds Pulse Description: 2+ Normal Peripheral Pulse Location: Dorsalis Pedis Skin Exam (Focused Sepsis): Normal Turgor *Q Meaningful Use (ADM) - VTE Risk Assess *Q Each Risk Factor Represents 1 Point: Sepsis, Serious lung disease including pneumonia Total Score 1 Point Risk Factors: 2 Each Risk Factor Represents 2 Points: None Total Score 2 Point Risk Factors: 0 Each Risk Factor Represents 3 Points: Age 75 Years or Greater Total Score 3 Point Risk Factors: 3 Each Risk Factor Represents 5 Points: None Total Score 5 Point Risk Factors: 0 Venous Thromboembolism Risk Factor Score *Q: 5 - Problem List (1) Aspiration pneumonia due to food (regurgitated) SNOMED Code(s): 83399967 ICD Code: J69.0 - PNEUMONITIS DUE TO INHALATION OF FOOD AND VOMIT Status: Acute Priority: High Current Visit: Yes Qualifiers: Laterality: right Lung location: lower lobe of lung Qualified Code(s): J69.0 - Pneumonitis due to inhalation of food and vomit (2) Acute respiratory failure with hypoxia SNOMED Code(s): 92337811, 903132808 ICD Code: J96.01 - ACUTE RESPIRATORY FAILURE WITH HYPOXIA Status: Acute Current Visit: Yes (3) Sepsis SNOMED Code(s): 10473955 ICD Code: A41.9 - SEPSIS, UNSPECIFIED ORGANISM Status: Acute Priority: High Current Visit: Yes Qualifiers: Sepsis type: sepsis due to unspecified organism Sepsis acute organ dysfunction status: with acute organ dysfunction Severe sepsis acute organ dysfunction type: acute respiratory failure Acute respiratory failure type: with hypoxia Severe sepsis shock status: without septic shock Qualified Code(s): A41.9 - Sepsis, unspecified organism; R65.20 - Severe sepsis without septic shock; J96.01 - Acute respiratory failure with hypoxia (4) Urinary tract infection SNOMED Code(s): 38962768 ICD Code: N39.0 - URINARY TRACT INFECTION, SITE NOT SPECIFIED Status: Acute Priority: High Current Visit: Yes Qualifiers: Urinary tract infection type: acute cystitis Hematuria presence: without hematuria Qualified Code(s): N30.00 - Acute cystitis without hematuria (5) Hypokalemia SNOMED Code(s): 86494089 ICD Code: E87.6 - HYPOKALEMIA Status: Acute Priority: Medium Current Visit: Yes (6) Multiple sclerosis, secondary progressive SNOMED Code(s): 358980814 ICD Code: G35 - MULTIPLE SCLEROSIS Status: Chronic Priority: Medium Cu rrent Visit: Yes (7) Neurogenic bladder SNOMED Code(s): 416850046 ICD Code: N31.9 - NEUROMUSCULAR DYSFUNCTION OF BLADDER, UNSPECIFIED Status: Chronic Priority: Medium Current Visit: Yes Problem List Initiated/Reviewed/Updated: Yes Orders Last 24hrs: Active Orders 24 hr Category Date Time Status Patient Status Manage Transfer [TRANSFER] Routine ADT 03/31/20 04:02 Ordered Chest 1V Frontal [CR] Stat Exams 03/31/20 01:39 Taken CULTURE BLOOD [BC] Urgent Lab 03/31/20 01:55 Received CULTURE BLOOD [BC] Urgent Lab 03/31/20 02:00 Received CULTURE URINE [RM] Stat Lab 03/31/20 03:16 Received Sodium Chloride 0.9% [Saline Flush] Med 03/31/20 01:39 Active 10 ml FLUSH ASDIRECTED PRN Sodium Chloride 0.9% [Saline Flush] Med 03/31/20 02:47 Active 10 ml FLUSH ASDIRECTED PRN Vancomycin 1 gm Med 03/31/20 02:47 Active Sodium Chloride 0.9% [Normal Saline] 250 ml IV STAT Blood Culture x2 Reflex Set [OM.PC] Urgent Oth 03/31/20 01:39 Ordered Saline Lock Insert [OM.PC] Routine Oth 03/31/20 01:39 Ordered Saline Lock Insert [OM.PC] Stat Oth 03/31/20 02:47 Ordered Severe Sepsis Onset Time [OM.PC] Stat Oth 03/31/20 02:47 Ordered Resuscitation Status Routine Resus Stat 03/31/20 04:04 Ordered Medication Orders Vancomycin HCl 1 gm/ Sodium (Chloride) 250 mls @ 167 mls/hr IV STAT ONE Stop: 03/31/20 04:16 Last Admin: 03/31/20 03:10 Dose: 167 mls/hr Documented by: RAZA Sodium Chloride (Saline Flush) 10 ml FLUSH ASDIRECTED PRN PRN Reason: Keep Vein Open Last Admin: 03/31/20 02:06 Dose: 10 ml Documented by: RAZA Sodium Chloride (Saline Flush) 10 ml FLUSH ASDIRECTED PRN PRN Reason: Keep Vein Open Last Admin: 03/31/20 03:14 Dose: 10 ml Documented by: RAZA Assessment/Plan Comment:: ASSESSMENT AND PLAN - Aspiration pneumonia/pneumonitis-complicated by acute respiratory failure with hypoxia and sepsis. Witnessed aspiration around 10 PM the night before admissi on. Only mildly hypoxic at this time but pulmonary examination is worrisome for potential to deteriorate. I suspect the aspiration happened because of her urinary tract infection. Blood gases looked okay. Sepsis is improving with management provided in the emergency room. -Repeat lactic acid -Antibiotic coverage with Pip/Tazo -Continue IV fluids -Supplement oxygen -Follow-up cultures Acute cystitis without hematuria-urine strongly suggestive of infection. She has a history of neurogenic bladder as discussed below. -Antibiotics as above -Follow-up urine culture Hypokalemia-she will be receiving supplementation and will need a recheck later in the day. -Potassium 40 mEq IV over 4 hours Multiple sclerosis-significant disability because of her disease including neurogenic bladder. -Continue home medications Maintenance issues - - DVT prophylaxis -enoxaparin - GI prophylaxis -PPI - Nutrition -regular diet - Peng catheter -not indicated CODE STATUS -full code per advance directive Admission justification -this patient will be admitted for inpatient services and is medically appropriate meeting medical necessity for inpatient admission as outlined in my documentation. I reasonably expect the patient will require inpatient services that span a period time over 2 midnights. I reasonably expect this patient to be discharged or transferred within 96 hours after admission to the [facility]. Disposition -I would anticipate discharge back to the group home after the hospital stay Primary care physician -Dr. Jarad Gutiérrez M.D. - Mortality Measure Prognosis:: Good
[2020-03-31] MEDS ORDERED: Ondansetron 4 MG Tab.DIS PO PRN (04:33)
[2020-03-31] MEDS ORDERED: Magnesium Hydroxide 400 MG/5 ML Susp 30 ML Cup PO PRN (04:33)
[2020-03-31] MEDS ORDERED: Acetaminophen 325 MG Tab PO PRN (04:33)
[2020-03-31] MEDS ORDERED: Albuterol 0.083% 2.5 MG/3 ML Neb Soln NEB PRN (04:33)
[2020-03-31] MEDS ORDERED: Ondansetron 4 MG/2 ML SDV IV PRN (04:33)
[2020-03-31] MEDS ORDERED: guaiFENesin/Dextromethorphan 100-10 MG/5 ML Soln 10 ML Cup PO PRN (04:33)
[2020-03-31] MEDS ORDERED: LORazepam 2 MG/ML SDV IVPUSH PRN (04:33)
[2020-03-31] MEDS ORDERED: Potassium Chloride 20 MEQ, Lidocaine 1% 2 ML in Sodium Chloride 0.9% 100 ML IV SCH (05:00)
[2020-03-31] MEDS: Sodium Chloride 0.9% 1,000 ML IV SCH ×2 (05:10→14:53)
[2020-03-31] MEDS ORDERED: Potassium Chloride 20 MEQ in Premix Bag 1 BAG IV ONE ×2 (05:20→07:20)
[2020-03-31] MEDS ORDERED: Piperacillin/Tazobactam 2.25 GM in Sodium Chloride 0.9% 50 ML IV SCH (06:00)
[2020-03-31] MEDS ORDERED: Albuterol/Ipratropium 3.0-0.5 MG/3 ML Neb Soln NEB SCH (06:00)
[2020-03-31] MEDS ORDERED: Potassium Chloride 20 MEQ, Lidocaine 1% 2 ML in Sodium Chloride 0.9% 100 ML IV ONE (09:00)
[2020-03-31] MEDS ORDERED: Potassium Chloride 20 MEQ Tab.ER PO ONE (09:00)
--- NOTE | 2020-03-31 09:08 | CR ---
CHEST: Portable 03/31/2019 [id number] CLINICAL HISTORY:Dyspnea, hypoxia COMPARISON:January 2020 FINDINGS: There is less than optimal inspiration which exaggerates lung markings. There is diffuse interstitial prominence. Heart size is mildly enlarged. There are atherosclerotic changes in the aorta. Impression: Mild generalized increase in lung markings similar to prior studies. This is exaggerated by poor inspiratory level.
[2020-03-31] MEDS: Baclofen 10 MG Tab PO SCH ×3 (09:40→22:05)
[2020-03-31] MEDS: busPIRone 10 MG Tab PO SCH ×3 (09:40→22:05)
[2020-03-31] MEDS: Aspirin 81 MG Tab.EC PO SCH (09:40)
[2020-03-31] MEDS: Polyethylene Glycol 3350 Powder 17 GM Packet PO SCH (09:41)
[2020-03-31] MEDS: Enoxaparin 30 MG/0.3 ML Syringe SUBCUT SCH ×2 (09:41→11:44)
[2020-03-31] MEDS: Oxybutynin 5 MG Tab PO SCH ×2 (09:41→22:05)
[2020-03-31] MEDS: Sertraline 25 MG Tab PO SCH (09:42)
[2020-03-31] MEDS: Lactobacillus Rhamnosus GG (Probiotic) Cap PO SCH ×2 (09:42→22:05)
[2020-03-31] MEDS: Pantoprazole 40 MG Tab.CR PO SCH (09:42)
[2020-03-31] MEDS: Albuterol/Ipratropium 3.0-0.5 MG/3 ML Neb Soln NEB SCH ×3 (10:55→22:10)
--- NOTE | 2020-03-31 11:11 | CR ---
Swallowing Function w Video INDICATION: No Clinical Info Fluoro images obtained 1 TECHNIQUE: Video swallowing study performed in conjunction with the Speech Pathology Staff. Patient was given barium in varying consistencies. Swallowing was observed fluoroscopically. FINDINGS: Due to patient's condition and inability to sit limited evaluation of the lower pharynx and upper esophagus. Patient attempted a swallow of thin barium. This pooled in the periportal sinuses. Penetration the airway is suggested but cannot be documented. Patient was unable to significantly clear the performed sinuses despite multiple attempts. This appeared to be mainly due to weakness and possibly cognition. See Speech Pathology Staff note for additional details.
[2020-03-31] MEDS: Piperacillin/Tazobactam/Dext 2.25 GM in Premix Bag 1 BAG IV SCH ×2 (12:35→17:31)
[2020-03-31] MEDS: Haloperidol Lactate 5 MG/ML SDV IVPUSH PRN (16:21)
--- NOTE | 2020-03-31 16:53 | PCM.PN ---
- General Info Date of Service: 03/31/20 Subjective Update: Ms. Carey is an 80-year-old woman who was admitted through the emergency department early this morning with increased lethargy and probable aspiration. She has been started on Zosyn for IV coverage. Nursing staff has noted marked difficulty with swallowing since admission. Swallowing study in the x-ray department was unsuccessful as she was unable to swallow at all. Previously had been eating without obvious difficulty. She has been fairly lethargic since admission, now this afternoon has become more agitated. Because of her dementia and confusion she is unable to provide a meaningful history concerning recent symptoms or review of systems. - Patient Data Vitals - Most Recent: Last Vital Signs Temp 98.3 F 03/31/20 11:00 Pulse 83 03/31/20 11:00 Resp 22 H 03/31/20 11:00 BP 96/44 L 03/31/20 11:00 Pulse Ox 100 03/31/20 11:00 Weight - Most Recent: 156 lb 4.783 oz Lab Results Last 24 Hours: Laboratory Results - last 24 hr 03/31/20 03/31/20 03/31/20 Range/Units 02:00 02:00 02:00 WBC 13.4 H (4.5-11.0) K/uL RBC 4.51 (3.30-5.50) M/uL Hgb 11.9 L (12.0-15.0) g/dL Hct 39.8 (36.0-48.0) % MCV 88 (80-98) fL MCH 26 L (27-31) pg MCHC 30 L (32-36) % Plt Count 100 L (150-400) K/uL Neut % (Auto) 98 H (36-66) % Lymph % (Auto) 1 L (24-44) % [place]ck[place] % (Auto) 0 L (2-6) % Eos % (Auto) 0 L (2-4) % Baso % (Auto) 0 (0-1) % Puncture Site ABG pH (7.350-7.450) ABG pCO2 (35.0-42.0) mmHg ABG pO2 (75.0-100.0) mmHg ABG HCO3 (22.0-26.0) mmol/L ABG Total CO2 (21.0-25.0) mmol/L ABG O2 Saturation (95.0-98.0) % ABG O2 Content (15.0-23.0) %vol ABG Base Excess mm/L ABG Hemoglobin (12.0-16.0) g/dL ABG Oxyhemoglobin % ABG Carboxyhemoglobin (0.0-1.6) % ABG Methemoglobin % O2 Delivery Device Oxygen Flow Rate L Sodium 147 (140-148) mmol/L Potassium 3.1 L (3.6-5.2) mmol/L Chloride 108 (100-108) mmol/L Carbon Dioxide 24 (21-32) mmol/L Anion Gap 18.1 H (5.0-14.0) mmol/L BUN 33 H (7-18) mg/dL Creatinine 1.4 H (0.6-1.0) mg/dL Est Cr Clr Drug Dosing 22.64 mL/min Estimated GFR (MDRD) 36 L (>60) Glucose 138 H (74-106) mg/dL Lactic Acid 2.5 H (0.4-2.0) mmol/L Calcium 9.1 (8.5-10.1) mg/dL Total Bilirubin 0.9 D (0.2-1.0) mg/dL AST 43 H (15-37) U/L ALT 42 (12-78) U/L Alkaline Phosphatase 288 H D (46-116) U/L Troponin I < 0.017 (0.000-0.056) ng/mL C-Reactive Protein 12.38 H (0.0-0.3) mg/dL Total Protein 6.5 (6.4-8.2) g/dL Albumin 2.9 L (3.4-5.0) g/dL Globulin 3.6 H (2.3-3.5) g/dL Albumin/Globulin Ratio 0.8 L (1.2-2.2) Urine Color (YELLOW) Urine Appearance (CLEAR) Urine pH (5.0-8.0) Ur Specific [place] (1.008-1.030) Urine Protein (NEGATIVE) mg/dL Urine Glucose (UA) (NEGATIVE) mg/dL Urine Ketones (NEGATIVE) mg/dL Urine Occult Blood (NEGATIVE) Urine Nitrite (NEGATIVE) Urine Bilirubin (NEGATIVE) Urine Urobilinogen (0.2-1.0) EU/dL Ur Leukocyte Esterase (NEGATIVE) Urine RBC (0-5) Urine WBC (0-5) Ur Epithelial Cells Urine Bacteria 03/31/20 03/31/20 03/31/20 Range/Units 02:00 02:15 03:30 WBC (4.5-11.0) K/uL RBC (3.30-5.50) M/uL Hgb (12.0-15.0) g/dL Hct (36.0-48.0) % MCV (80-98) fL MCH (27-31) pg MCHC (32-36) % Plt Count (150-400) K/uL Neut % (Auto) (36-66) % Lymph % (Auto) (24-44) % Crockett % (Auto) (2-6) % Eos % (Auto) (2-4) % Baso % (Auto) (0-1) % Puncture Site R radial ABG pH 7.437 (7.350-7.450) ABG pCO2 35.0 (35.0-42.0) mmHg ABG pO2 74.6 L (75.0-100.0) mmHg ABG HCO3 23.2 (22.0-26.0) mmol/L ABG Total CO2 20.9 L (21.0-25.0) mmol/L ABG O2 Saturation 94.6 L (95.0-98.0) % ABG O2 Content 15.8 (15.0-23.0) %vol ABG Base Excess -0.1 mm/L ABG Hemoglobin 12.1 (12.0-16.0) g/dL ABG Oxyhemoglobin 92.3 % ABG Carboxyhemoglobin 1.4 (0.0-1.6) % ABG Methemoglobin 1.0 % O2 Delivery Device Nasal cannula Oxygen Flow Rate 2.0 L Sodium (140-148) mmol/L Potassium (3.6-5.2) mmol/L Chloride (100-108) mmol/L Carbon Dioxide (21-32) mmol/L Anion Gap (5.0-14.0) mmol/L BUN (7-18) mg/dL Creatinine (0.6-1.0) mg/dL Est Cr Clr Drug Dosing mL/min Estimated GFR (MDRD) (>60) Glucose (74-106) mg/dL Lactic Acid 2.2 H (0.4-2.0) mmol/L Calcium (8.5-10.1) mg/dL Total Bilirubin (0.2-1.0) mg/dL AST (15-37) U/L ALT (12-78) U/L Alkaline Phosphatase (46-116) U/L Troponin I (0.000-0.056) ng/mL C-Reactive Protein (0.0-0.3) mg/dL Total Protein (6.4-8.2) g/dL Albumin (3.4-5.0) g/dL Globulin (2.3-3.5) g/dL Albumin/Globulin Ratio (1.2-2.2) Urine Color Yellow (YELLOW) Urine Appearance Cloudy A (CLEAR) Urine pH 7.0 (5.0-8.0) Ur Specific [place] 1.020 (1.008-1.030) Urine Protein 100 H (NEGATIVE) mg/dL Urine Glucose (UA) Negative (NEGATIVE) mg/dL Urine Ketones Negative (NEGATIVE) mg/dL Urine Occult Blood Large H (NEGATIVE) Urine Nitrite Positive H (NEGATIVE) Urine Bilirubin Negative (NEGATIVE) Urine Urobilinogen 1.0 (0.2-1.0) EU/dL Ur Leukocyte Esterase Small H (NEGATIVE) Urine RBC >100 H (0-5) Urine WBC 50-75 H (0-5) Ur Epithelial Cells Few Urine Bacteria Many 03/31/20 Range/Units 06:30 WBC (4.5-11.0) K/uL RBC (3.30-5.50) M/uL Hgb (12.0-15.0) g/dL Hct (36.0-48.0) % MCV (80-98) fL MCH (27-31) pg MCHC (32-36) % Plt Count (150-400) K/uL Neut % (Auto) (36-66) % Lymph % (Auto) (24-44) % Crockett % (Auto) (2-6) % Eos % (Auto) (2-4) % Baso % (Auto) (0-1) % Puncture Site ABG pH (7.350-7.450) ABG pCO2 (35.0-42.0) mmHg ABG pO2 (75.0-100.0) mmHg ABG HCO3 (22.0-26.0) mmol/L ABG Total CO2 (21.0-25.0) mmol/L ABG O2 Saturation (95.0-98.0) % ABG O2 Content (15.0-23.0) %vol ABG Base Excess mm/L ABG Hemoglobin (12.0-16.0) g/dL ABG Oxyhemoglobin % ABG Carboxyhemoglobin (0.0-1.6) % ABG Methemoglobin % O2 Delivery Device Oxygen Flow Rate L Sodium (140-148) mmol/L Potassium (3.6-5.2) mmol/L Chloride (100-108) mmol/L Carbon Dioxide (21-32) mmol/L Anion Gap (5.0-14.0) mmol/L BUN (7-18) mg/dL Creatinine (0.6-1.0) mg/dL Est Cr Clr Drug Dosing mL/min Estimated GFR (MDRD) (>60) Glucose (74-106) mg/dL Lactic Acid 2.0 (0.4-2.0) mmol/L Calcium (8.5-10.1) mg/dL Total Bilirubin (0.2-1.0) mg/dL AST (15-37) U/L ALT (12-78) U/L Alkaline Phosphatase (46-116) U/L Troponin I (0.000-0.056) ng/mL C-Reactive Protein (0.0-0.3) mg/dL Total Protein (6.4-8.2) g/dL Albumin (3.4-5.0) g/dL Globulin (2.3-3.5) g/dL Albumin/Globulin Ratio (1.2-2.2) Urine Color (YELLOW) Urine Appearance (CLEAR) Urine pH (5.0-8.0) Ur Specific [place] (1.008-1.030) Urine Protein (NEGATIVE) mg/dL Urine Glucose (UA) (NEGATIVE) mg/dL Urine Ketones (NEGATIVE) mg/dL Urine Occult Blood (NEGATIVE) Urine Nitrite (NEGATIVE) Urine Bilirubin (NEGATIVE) Urine Urobilinogen (0.2-1.0) EU/dL Ur Leukocyte Esterase (NEGATIVE) Urine RBC (0-5) Urine WBC (0-5) Ur Epithelial Cells Urine Bacteria Mook Results Last 24 Hours: Microbiology 03/31/20 02:00 Anaerobic Blood Culture - Preliminary Blood - Arm, Left Med Orders - Current: Current Medications Acetaminophen (Tylenol) 650 mg PO Q4H PRN PRN Reason: Pain (Mild 1-3)/fever Albuterol (Proventil Neb Soln) 2.5 mg NEB Q4H PRN PRN Reason: Shortness Of Breath/wheezing Albuterol/Ipratropium (Duoneb 3.0-0.5 Mg/3 Ml) 3 ml NEB QIDRT [facility] Last Admin: 03/31/20 14:52 Dose: 3 ml Documented by: Aspirin (Halfprin) 81 mg PO DAILY [facility] Last Admin: 03/31/20 09:40 Dose: 81 mg Documented by: Baclofen (Lioresal) 10 mg PO TID [facility] Last Admin: 03/31/20 14:52 Dose: Not Given Documented by: Buspirone HCl (Buspar) 10 mg PO TID [facility] Last Admin: 03/31/20 14:52 Dose: Not Given Documented by: Enoxaparin Sodium (Lovenox) 30 mg SUBCUT DAILY [facility] Last Admin: 03/31/20 11:44 Dose: 30 mg Documented by: Guaifenesin/Dextromethorphan (Robitussin Dm) 10 ml PO Q4H PRN PRN Reason: Cough Haloperidol Lactate (Haldol) 1 mg IVPUSH Q2H PRN PRN Reason: Agitation Last Admin: 03/31/20 16:21 Dose: 1 mg Documented by: Piperacillin/Tazobactam/ (Dextrose 2.25 gm/ Premix) 50 mls @ 100 mls/hr IV Q6H [facility] Last Admin: 03/31/20 12:35 Dose: 100 mls/hr Documented by: Sodium Chloride (Normal Saline) 1,000 mls @ 50 mls/hr IV ASDIRECTED [facility] Lactobacillus Rhamnosus (Culturelle) 1 cap PO BID [facility] Last Admin: 03/31/20 09:42 Dose: Not Given Documented by: Lorazepam (Ativan) 0.5 mg IVPUSH Q4H PRN PRN Reason: Nausea/Vomiting Magnesium Hydroxide (Milk Of Magnesia) 30 ml PO Q12H PRN PRN Reason: Constipation Melatonin (Melatonin) 9 mg PO BEDTIME [facility] Ondansetron HCl (Zofran) 4 mg IV Q6H PRN PRN Reason: Nausea/Vomiting Ondansetron HCl (Zofran Odt) 4 mg PO Q6H PRN PRN Reason: Nausea able to take PO Oxybutynin Chloride (Oxybutynin) 2.5 mg PO BID [facility] Last Admin: 03/31/20 09:41 Dose: 2.5 mg Documented by: Pantoprazole Sodium (Protonix) 40 mg PO ACBREAKFAST [facility] Last Admin: 03/31/20 09:42 Dose: 40 mg Documented by: Polyethylene Glycol (Miralax) 17 gm PO DAILY [facility] Last Admin: 03/31/20 09:41 Dose: Not Given Documented by: Senna/Docusate Sodium (Senna Plus) 1 tab PO BID PRN PRN Reason: Constipation Sertraline HCl (Zoloft) 25 mg PO DAILY [facility] Last Admin: 03/31/20 09:42 Dose: 25 mg Documented by: Simvastatin (Zocor) 10 mg PO BEDTIME [facility] Sodium Chloride (Saline Flush) 10 ml FLUSH ASDIRECTED PRN PRN Reason: Keep Vein Open Last Admin: 03/31/20 02:06 Dose: 10 ml Documented by: Trazodone HCl (Trazodone) 100 mg PO BEDTIME [facility] Discontinued Medications Albuterol/Ipratropium (Duoneb 3.0-0.5 Mg/3 Ml) 3 ml NEB QID [facility] Last Admin: 03/31/20 05:18 Dose: 3 ml Documented by: Sodium Chloride (Normal Saline) 1,000 mls @ 500 mls/hr IV .BOLUS ONE Stop: 03/31/20 03:43 Last Admin: 03/31/20 02:05 Dose: 500 mls/hr Documented by: Vancomycin HCl 1 gm/ Sodium (Chloride) 250 mls @ 167 mls/hr IV STAT ONE Stop: 03/31/20 04:16 Last Admin: 03/31/20 03:10 Dose: 167 mls/hr Documented by: Ceftriaxone Sodium 1 gm/ (Sodium Chloride) 50 mls @ 100 mls/hr IV STAT ONE Stop: 03/31/20 03:16 Last Admin: 03/31/20 03:07 Dose: 100 mls/hr Documented by: Sodium Chloride (Normal Saline) 1,000 mls @ 125 mls/hr IV ASDIRECTED [facility] Last Admin: 03/31/20 14:53 Dose: 125 mls/hr Documented by: Potassium Chloride 20 meq/Lidocaine HCl 2 ml/ Sodium Chloride 112 mls @ 50 mls/hr IV Q2H [facility] Stop: 03/31/20 08:59 Last Admin: 03/31/20 05:50 Dose: Not Given Documented by: Piperacillin Sod/Tazobactam (Sod 2.25 gm/ Sodium Chloride) 50 mls @ 100 mls/hr IV Q6H [facility] Last Admin: 03/31/20 05:12 Dose: 100 mls/hr Documented by: Potassium Chloride 20 meq/ (Premix) 100 mls @ 50 mls/hr IV ONETIME ONE Stop: 03/31/20 07:19 Last Admin: 03/31/20 05:47 Dose: 50 mls/hr Documented by: Potassium Chloride 20 meq/Lidocaine HCl 2 ml/ Sodium Chloride 112 mls @ 56 mls/hr IV ONETIME ONE Stop: 03/31/20 10:59 Last Admin: 03/31/20 09:41 Dose: 56 mls/hr Documented by: Lidocaine HCl (Xylocaine-Mpf 1%) 5 ml INJECT ONETIME ONE Stop: 03/31/20 05:23 Last Admin: 03/31/20 05:46 Dose: 5 ml Documented by: Potassium Chloride (Klor-Con M20) 40 meq PO ONETIME ONE Stop: 03/31/20 09:01 Last Admin: 03/31/20 09:58 Dose: 40 meq Documented by: Sodium Chloride (Saline Flush) 10 ml FLUSH ASDIRECTED PRN PRN Reason: Keep Vein Open Last Admin: 03/31/20 03:14 Dose: 10 ml Documented by: - Exam General: Moderate Distress, Lethargic Lungs: Decreased Breath Sounds. No: Rales, Rhonchi, Wheezing Cardiovascular: Regular Rate, Regular Rhythm, No Murmurs GI/Abdominal Exam: Soft, Non-Tender, No Organomegaly, No Distention Extremities: Non-Tender, No Pedal Edema Sepsis Event Note - Evaluation Sepsis Screening Result: Sepsis Risk - Focused Exam Vital Signs: Vital Signs Temp Temp Pulse Resp BP Pulse Ox 03/31/20 11:00 98.3 F 83 22 H 96/44 L 100 03/31/20 07:26 97 03/31/20 07:05 97.6 F 94 16 99/75 97 03/31/20 05:39 94 L 03/31/20 04:55 98.2 F 97 20 94/65 95 - Problem List Review Problem List Initiated/Reviewed/Updated: Yes - My Orders Last 24 Hours: My Active Orders 03/31/20 09:58 Consult to Speech Language Pathology [[employer] Evaluation and Treatment] [CONS] Routine 03/31/20 16:14 Cardiac Monitoring Discontinue [RC] Click to Edit Haloperidol Lactate [Haldol] 1 mg IVPUSH Q2H PRN 03/31/20 16:45 Sodium Chloride 0.9% @ 50 MLS/HR(1000ml) Sodium Chloride 0.9% [Normal Saline] 1,000 ml IV ASDIRECTED - Plan Plan:: ASSESSMENT AND PLAN - Aspiration pneumonia/pneumonitis-complicated by acute respiratory failure with hypoxia and sepsis. Witnessed aspiration around 10 PM the night before admission. Only mildly hypoxic at this time but pulmonary examination is worrisome for potential to deteriorate. I suspect the aspiration happened because of her urinary tract infection. Point difficulty with swallowing since admission -Antibiotic coverage with Pip/Tazo -Continue IV fluids -Supplement oxygen -Follow-up cultures Acute cystitis without hematuria-urine strongly suggestive of infection. She has a history of neurogenic bladder as discussed below. -Antibiotics as above -Follow-up urine culture Hypokalemia -Reassess potassium level in a.m. Multiple sclerosis-significant disability because of her disease including neurogenic bladder. -Continue home medications Dementia with agitation -Melatonin 9 mg p.o. nightly -Haldol 1 mg IV every 2 hours as needed Maintenance issues - - DVT prophylaxis -enoxaparin - GI prophylaxis -PPI - Nutrition -regular diet - Peng catheter -not indicated CODE STATUS -full code per advance directive Admission justification -this patient will be admitted for inpatient services and is medically appropriate meeting medical necessity for inpatient admission as outlined in my documentation. I reasonably expect the patient will require inpatient services that span a period time over 2 midnights. I reasonably expect this patient to be discharged or transferred within 96 hours [facility]. Disposition -I would anticipate discharge back to the half-way after the hospital stay Primary care physician -Dr. Jarad Vazquez
[2020-03-31] MEDS: Simvastatin 20 MG Tab PO SCH (22:04)
[2020-03-31] MEDS: Melatonin 3 MG Tab PO SCH (22:05)
[2020-03-31] MEDS: traZODone 50 MG Tab PO SCH (22:05)
[2020-04-01] MEDS: Piperacillin/Tazobactam/Dext 2.25 GM in Premix Bag 1 BAG IV SCH ×5 (00:19→23:48)
[2020-04-01] MEDS: Sodium Chloride 0.9% 1,000 ML IV SCH (05:24)
[2020-04-01] MEDS: Albuterol/Ipratropium 3.0-0.5 MG/3 ML Neb Soln NEB SCH ×4 (07:08→21:43)
[2020-04-01] MEDS: Baclofen 10 MG Tab PO SCH ×3 (08:34→21:39)
[2020-04-01] MEDS: busPIRone 10 MG Tab PO SCH ×3 (08:34→21:39)
[2020-04-01] MEDS: Lactobacillus Rhamnosus GG (Probiotic) Cap PO SCH ×2 (08:34→21:39)
[2020-04-01] MEDS: Oxybutynin 5 MG Tab PO SCH ×2 (08:35→21:39)
[2020-04-01] MEDS: Sertraline 25 MG Tab PO SCH (08:35)
[2020-04-01] MEDS: Aspirin 81 MG Tab.EC PO SCH (08:35)
[2020-04-01] MEDS: Pantoprazole 40 MG Tab.CR PO SCH (08:35)
[2020-04-01] MEDS: Polyethylene Glycol 3350 Powder 17 GM Packet PO SCH (08:36)
[2020-04-01] MEDS: Enoxaparin 30 MG/0.3 ML Syringe SUBCUT SCH (08:36)
--- NOTE | 2020-04-01 14:02 | PCM.PN ---
- General Info Date of Service: 04/01/20 Subjective Update: Ms. Carey has remained fairly stable over the last 24 hours. She does intermittently become more agitated, this has been controlled with intermittent use of Haldol. Vital signs have been stable, she has been afebrile, with good oxygenation. She is unable to provide a meaningful history concerning symptoms or review of systems because of dementia and confusion. - Patient Data Vitals - Most Recent: Last Vital Signs Temp 96.9 F 04/01/20 11:05 Pulse 63 04/01/20 11:05 Resp 16 04/01/20 11:05 BP 100/57 L 04/01/20 11:05 Pulse Ox 100 04/01/20 11:05 Weight - Most Recent: 156 lb 4.783 oz I&O - Last 24 Hours: Intake & Output 03/31/20 04/01/20 04/01/20 22:59 06:59 14:59 Intake Total 2142 140 Balance 2142 140 Lab Results Last 24 Hours: Laboratory Results - last 24 hr 04/01/20 04/01/20 Range/Units 05:30 05:30 WBC 21.3 H (4.5-11.0) K/uL RBC 3.68 (3.30-5.50) M/uL Hgb 9.6 L D (12.0-15.0) g/dL Hct 32.7 L (36.0-48.0) % MCV 89 (80-98) fL MCH 26 L (27-31) pg MCHC 29 L (32-36) % Plt Count 89 L (150-400) K/uL Sodium 148 (140-148) mmol/L Potassium 4.0 (3.6-5.2) mmol/L Chloride 116 H (100-108) mmol/L Carbon Dioxide 22 (21-32) mmol/L Anion Gap 14.0 (5.0-14.0) mmol/L BUN 30 H (7-18) mg/dL Creatinine 1.0 (0.6-1.0) mg/dL Est Cr Clr Drug Dosing 31.69 mL/min Estimated GFR (MDRD) 53 L (>60) Glucose 86 (74-106) mg/dL Calcium 8.3 L (8.5-10.1) mg/dL Magnesium 2.0 (1.8-2.4) mg/dL Mook Results Last 24 Hours: Microbiology 03/31/20 02:00 Aerobic Blood Culture - Preliminary Blood - Arm, Left NO GROWTH AFTER 1 DAY Anaerobic Blood Culture - Preliminary 03/31/20 03:16 Urine Culture - Preliminary Urine, Clean Catch 03/31/20 01:55 Aerobic Blood Culture - Preliminary Blood - Venous - Iv Start NO GROWTH AFTER 1 DAY Anaerobic Blood Culture - Preliminary NO GROWTH AFTER 1 DAY Med Orders - Current: Current Medications Acetaminophen (Tylenol) 650 mg PO Q4H PRN PRN Reason: Pain (Mild 1-3)/fever Albuterol (Proventil Neb Soln) 2.5 mg NEB Q4H PRN PRN Reason: Shortness Of Breath/wheezing Albuterol/Ipratropium (Duoneb 3.0-0.5 Mg/3 Ml) 3 ml NEB QIDRT [facility] Last Admin: 04/01/20 10:49 Dose: 3 ml Documented by: Aspirin (Halfprin) 81 mg PO DAILY [facility] Last Admin: 04/01/20 08:35 Dose: 81 mg Documented by: Baclofen (Lioresal) 10 mg PO TID [facility] Last Admin: 04/01/20 08:34 Dose: 10 mg Documented by: Buspirone HCl (Buspar) 10 mg PO TID [facility] Last Admin: 04/01/20 13:33 Dose: 10 mg Documented by: Guaifenesin/Dextromethorphan (Robitussin Dm) 10 ml PO Q4H PRN PRN Reason: Cough Haloperidol Lactate (Haldol) 1 mg IVPUSH Q2H PRN PRN Reason: Agitation Last Admin: 03/31/20 16:21 Dose: 1 mg Documented by: Piperacillin/Tazobactam/ (Dextrose 2.25 gm/ Premix) 50 mls @ 100 mls/hr IV Q6H [facility] Last Admin: 04/01/20 13:32 Dose: 100 mls/hr Documented by: Sodium Chloride (Normal Saline) 1,000 mls @ 50 mls/hr IV ASDIRECTED [facility] Last Admin: 04/01/20 05:24 Dose: 50 mls/hr Documented by: Lactobacillus Rhamnosus (Culturelle) 1 cap PO BID [facility] Last Admin: 04/01/20 08:34 Dose: 1 cap Documented by: Lorazepam (Ativan) 0.5 mg IVPUSH Q4H PRN PRN Reason: Nausea/Vomiting Magnesium Hydroxide (Milk Of Magnesia) 30 ml PO Q12H PRN PRN Reason: Constipation Melatonin (Melatonin) 9 mg PO BEDTIME [facility] Last Admin: 03/31/20 22:05 Dose: 9 mg Documented by: Ondansetron HCl (Zofran) 4 mg IV Q6H PRN PRN Reason: Nausea/Vomiting Ondansetron HCl (Zofran Odt) 4 mg PO Q6H PRN PRN Reason: Nausea able to take PO Oxybutynin Chloride (Oxybutynin) 2.5 mg PO BID [facility] Last Admin: 04/01/20 08:35 Dose: 2.5 mg Documented by: Pantoprazole Sodium (Protonix) 40 mg PO ACBREAKFAST [facility] Last Admin: 04/01/20 08:35 Dose: 40 mg Documented by: Polyethylene Glycol (Miralax) 17 gm PO DAILY [facility] Last Admin: 04/01/20 08:36 Dose: Not Given Documented by: Senna/Docusate Sodium (Senna Plus) 1 tab PO BID PRN PRN Reason: Constipation Sertraline HCl (Zoloft) 25 mg PO DAILY [facility] Last Admin: 04/01/20 08:35 Dose: 25 mg Documented by: Simvastatin (Zocor) 10 mg PO BEDTIME [facility] Last Admin: 03/31/20 22:04 Dose: 10 mg Documented by: Sodium Chloride (Saline Flush) 10 ml FLUSH ASDIRECTED PRN PRN Reason: Keep Vein Open Last Admin: 03/31/20 02:06 Dose: 10 ml Documented by: Trazodone HCl (Trazodone) 100 mg PO BEDTIME [facility] Last Admin: 03/31/20 22:05 Dose: 100 mg Documented by: Discontinued Medications Albuterol/Ipratropium (Duoneb 3.0-0.5 Mg/3 Ml) 3 ml NEB QID [facility] Last Admin: 03/31/20 05:18 Dose: 3 ml Documented by: Enoxaparin Sodium (Lovenox) 30 mg SUBCUT DAILY [facility] Last Admin: 04/01/20 08:36 Dose: 30 mg Documented by: Sodium Chloride (Normal Saline) 1,000 mls @ 500 mls/hr IV .BOLUS ONE Stop: 03/31/20 03:43 Last Admin: 03/31/20 02:05 Dose: 500 mls/hr Documented by: Vancomycin HCl 1 gm/ Sodium (Chloride) 250 mls @ 167 mls/hr IV STAT ONE Stop: 03/31/20 04:16 Last Admin: 03/31/20 03:10 Dose: 167 mls/hr Documented by: Ceftriaxone Sodium 1 gm/ (Sodium Chloride) 50 mls @ 100 mls/hr IV STAT ONE Stop: 03/31/20 03:16 Last Admin: 03/31/20 03:07 Dose: 100 mls/hr Documented by: Sodium Chloride (Normal Saline) 1,000 mls @ 125 mls/hr IV ASDIRECTED [facility] Last Admin: 03/31/20 14:53 Dose: 125 mls/hr Documented by: Potassium Chloride 20 meq/Lidocaine HCl 2 ml/ Sodium Chloride 112 mls @ 50 mls/hr IV Q2H [facility] Stop: 03/31/20 08:59 Last Admin: 03/31/20 05:50 Dose: Not Given Documented by: Piperacillin Sod/Tazobactam (Sod 2.25 gm/ Sodium Chloride) 50 mls @ 100 mls/hr IV Q6H [facility] Last Admin: 03/31/20 05:12 Dose: 100 mls/hr Documented by: Potassium Chloride 20 meq/ (Premix) 100 mls @ 50 mls/hr IV ONETIME ONE Stop: 03/31/20 07:19 Last Admin: 03/31/20 05:47 Dose: 50 mls/hr Documented by: Potassium Chloride 20 meq/Lidocaine HCl 2 ml/ Sodium Chloride 112 mls @ 56 mls/hr IV ONETIME ONE Stop: 03/31/20 10:59 Last Admin: 03/31/20 09:41 Dose: 56 mls/hr Documented by: Lidocaine HCl (Xylocaine-Mpf 1%) 5 ml INJECT ONETIME ONE Stop: 03/31/20 05:23 Last Admin: 03/31/20 05:46 Dose: 5 ml Documented by: Potassium Chloride (Klor-Con M20) 40 meq PO ONETIME ONE Stop: 03/31/20 09:01 Last Admin: 03/31/20 09:58 Dose: 40 meq Documented by: Sodium Chloride (Saline Flush) 10 ml FLUSH ASDIRECTED PRN PRN Reason: Keep Vein Open Last Admin: 03/31/20 03:14 Dose: 10 ml Documented by: - Exam Quality Assessment: DVT Prophylaxis General: Alert, Moderate Distress. No: Oriented, Cooperative Lungs: Normal Respiratory Effort, Rhonchi. No: Crackles, Rales, Wheezing Cardiovascular: Regular Rate, Regular Rhythm, No Murmurs GI/Abdominal Exam: Soft, Non-Tender, No Organomegaly, No Distention Extremities: Non-Tender, No Pedal Edema Sepsis Event Note - Evaluation Sepsis Screening Result: No Definite Risk - Focused Exam Vital Signs: Vital Signs Temp Temp Pulse Resp BP Pulse Ox Pulse Ox 04/01/20 11:05 96.9 F 63 16 100/57 L 100 04/01/20 10:49 92 04/01/20 09:00 93 L 04/01/20 07:57 98.0 F 86 16 120/57 L 95 04/01/20 07:11 80 04/01/20 03:00 97.1 F 80 19 113/55 L 95 - Problem List Review Problem List Initiated/Reviewed/Updated: Yes - My Orders Last 24 Hours: My Active Orders 03/31/20 16:14 Cardiac Monitoring Discontinue [RC] Click to Edit Haloperidol Lactate [Haldol] 1 mg IVPUSH Q2H PRN 03/31/20 16:45 Sodium Chloride 0.9% [Normal Saline] 1,000 ml IV ASDIRECTED 04/01/20 11:09 Antiembolic Devices [RC] .Routine Sequential Compression Device [OM.PC] Routine 04/02/20 05:00 BASIC METABOLIC PANEL,BMP [CHEM] Timed CBC WITH AUTO DIFF [HEME] Timed - Plan Plan:: ASSESSMENT AND PLAN - Aspiration pneumonia/pneumonitis-stable over the last 24 hours with no further episodes of aspiration. She remains n.p.o. -Antibiotic coverage with Pip/Tazo -Continue IV fluids -Supplement oxygen -Follow-up cultures -Reassess swallowing status now that she is more alert Acute cystitis without hematuria-urine strongly suggestive of infection. She has a history of neurogenic bladder as discussed below. -Antibiotics as above -Follow-up urine culture Hypokalemia -Reassess potassium level in a.m. Multiple sclerosis-significant disability because of her disease including neurogenic bladder. -Continue home medications Dementia with agitation -Melatonin 9 mg p.o. nightly -Haldol 1 mg IV every 2 hours as needed Maintenance issues - - DVT prophylaxis -enoxaparin - GI prophylaxis -PPI - Nutrition -regular diet - Peng catheter -not indicated CODE STATUS -full code per advance directive Admission justification -this patient will be admitted for inpatient services and is medically appropriate meeting medical necessity for inpatient admission as outlined in my documentation. I reasonably expect the patient will require inpatient services that span a period time over 2 midnights. I reasonably expect this patient to be discharged or transferred within 96 hours after admission to the [facility]. Disposition -I would anticipate discharge back to the [facility] after the hospital stay Primary care physician -Dr. Jarad Vazquez
[2020-04-01] MEDS: Simvastatin 20 MG Tab PO SCH (21:39)
[2020-04-01] MEDS: Melatonin 3 MG Tab PO SCH (21:39)
[2020-04-01] MEDS: traZODone 50 MG Tab PO SCH (21:39)
[2020-04-02] MEDS: Sodium Chloride 0.9% 1,000 ML IV SCH (03:17)
[2020-04-02] MEDS: Piperacillin/Tazobactam/Dext 2.25 GM in Premix Bag 1 BAG IV SCH ×3 (06:15→17:03)
[2020-04-02] MEDS: Albuterol/Ipratropium 3.0-0.5 MG/3 ML Neb Soln NEB SCH ×3 (07:07→14:28)
[2020-04-02] MEDS: Lactobacillus Rhamnosus GG (Probiotic) Cap PO SCH ×2 (08:40→20:54)
[2020-04-02] MEDS: busPIRone 10 MG Tab PO SCH ×3 (08:40→20:54)
[2020-04-02] MEDS: Pantoprazole 40 MG Tab.CR PO SCH (08:40)
[2020-04-02] MEDS: Oxybutynin 5 MG Tab PO SCH ×2 (08:41→20:53)
[2020-04-02] MEDS: Baclofen 10 MG Tab PO SCH ×3 (08:41→20:53)
[2020-04-02] MEDS: Polyethylene Glycol 3350 Powder 17 GM Packet PO SCH (08:41)
[2020-04-02] MEDS: Aspirin 81 MG Tab.EC PO SCH (08:41)
[2020-04-02] MEDS: Sertraline 25 MG Tab PO SCH (08:42)
--- NOTE | 2020-04-02 15:12 | PCM.PN ---
- General Info Date of Service: 04/02/20 Subjective Update: Ms. Carey has been stable over the last 24 hours. More alert and interactive, tolerating a soft mechanical diet. Vital signs have been stable and she has remained afebrile. Because of confusion she is unable to provide a meaningful history concerning symptoms or review of systems. - Patient Data Vitals - Most Recent: Last Vital Signs Temp 96.8 F L 04/02/20 11:00 Pulse 77 04/02/20 11:00 Resp 18 04/02/20 11:00 BP 93/63 04/02/20 11:00 Pulse Ox 97 04/02/20 11:00 Weight - Most Recent: 156 lb 4.783 oz I&O - Last 24 Hours: Intake & Output 04/02/20 04/02/20 04/02/20 06:59 14:59 22:59 Intake Total 609 160 Balance 609 160 Lab Results Last 24 Hours: Laboratory Results - last 24 hr 04/02/20 04/02/20 Range/Units 05:30 05:30 WBC 15.3 H (4.5-11.0) K/uL RBC 3.48 (3.30-5.50) M/uL Hgb 9.7 L (12.0-15.0) g/dL Hct 31.1 L (36.0-48.0) % MCV 89 (80-98) fL MCH 28 (27-31) pg MCHC 31 L (32-36) % Plt Count (150-400) K/uL Neut % (Auto) 89 H (36-66) % Lymph % (Auto) 5 L (24-44) % [place] % (Auto) 3 (2-6) % Eos % (Auto) 2 (2-4) % Baso % (Auto) 0 (0-1) % Sodium 146 (140-148) mmol/L Potassium 4.0 (3.6-5.2) mmol/L Chloride 116 H (100-108) mmol/L Carbon Dioxide 21 (21-32) mmol/L Anion Gap 13.0 (5.0-14.0) mmol/L BUN 25 H (7-18) mg/dL Creatinine 0.8 (0.6-1.0) mg/dL Est Cr Clr Drug Dosing 39.61 mL/min Estimated GFR (MDRD) > 60 (>60) Glucose 100 (74-106) mg/dL Calcium 8.3 L (8.5-10.1) mg/dL Mook Results Last 24 Hours: Microbiology 03/31/20 01:55 Aerobic Blood Culture - Preliminary Blood - Venous - Iv Start Anaerobic Blood Culture - Preliminary 03/31/20 02:00 Aerobic Blood Culture - Preliminary Blood - Arm, Left NO GROWTH AFTER 2 DAYS Anaerobic Blood Culture - Final Escherichia Coli 03/31/20 03:16 Urine Culture - Final Urine, Clean Catch Escherichia Coli Med Orders - Current: Current Medications Acetaminophen (Tylenol) 650 mg PO Q4H PRN PRN Reason: Pain (Mild 1-3)/fever Albuterol (Proventil Neb Soln) 2.5 mg NEB Q4H PRN PRN Reason: Shortness Of Breath/wheezing Albuterol/Ipratropium (Duoneb 3.0-0.5 Mg/3 Ml) 3 ml NEB QIDRT [facility] Last Admin: 04/02/20 14:28 Dose: 3 ml Documented by: Aspirin (Halfprin) 81 mg PO DAILY [facility] Last Admin: 04/02/20 08:41 Dose: 81 mg Documented by: Baclofen (Lioresal) 10 mg PO TID [facility] Last Admin: 04/02/20 08:41 Dose: 10 mg Documented by: Buspirone HCl (Buspar) 10 mg PO TID [facility] Last Admin: 04/02/20 08:40 Dose: 10 mg Documented by: Guaifenesin/Dextromethorphan (Robitussin Dm) 10 ml PO Q4H PRN PRN Reason: Cough Haloperidol Lactate (Haldol) 1 mg IVPUSH Q2H PRN PRN Reason: Agitation Last Admin: 03/31/20 16:21 Dose: 1 mg Documented by: Piperacillin/Tazobactam/ (Dextrose 2.25 gm/ Premix) 50 mls @ 100 mls/hr IV Q6H [facility] Last Admin: 04/02/20 12:13 Dose: 100 mls/hr Documented by: Lactobacillus Rhamnosus (Culturelle) 1 cap PO BID [facility] Last Admin: 04/02/20 08:40 Dose: 1 cap Documented by: Lorazepam (Ativan) 0.5 mg IVPUSH Q4H PRN PRN Reason: Nausea/Vomiting Magnesium Hydroxide (Milk Of Magnesia) 30 ml PO Q12H PRN PRN Reason: Constipation Melatonin (Melatonin) 9 mg PO BEDTIME [facility] Last Admin: 04/01/20 21:39 Dose: 9 mg Documented by: Ondansetron HCl (Zofran) 4 mg IV Q6H PRN PRN Reason: Nausea/Vomiting Ondansetron HCl (Zofran Odt) 4 mg PO Q6H PRN PRN Reason: Nausea able to take PO Oxybutynin Chloride (Oxybutynin) 2.5 mg PO BID [facility] Last Admin: 04/02/20 08:41 Dose: 2.5 mg Documented by: Pantoprazole Sodium (Protonix) 40 mg PO ACBREAKFAST [facility] Last Admin: 04/02/20 08:40 Dose: 40 mg Documented by: Polyethylene Glycol (Miralax) 17 gm PO DAILY [facility] Last Admin: 04/02/20 08:41 Dose: 17 gm Documented by: Senna/Docusate Sodium (Senna Plus) 1 tab PO BID PRN PRN Reason: Constipation Sertraline HCl (Zoloft) 25 mg PO DAILY [facility] Last Admin: 04/02/20 08:42 Dose: 25 mg Documented by: Simvastatin (Zocor) 10 mg PO BEDTIME [facility] Last Admin: 04/01/20 21:39 Dose: 10 mg Documented by: Sodium Chloride (Saline Flush) 10 ml FLUSH ASDIRECTED PRN PRN Reason: Keep Vein Open Last Admin: 03/31/20 02:06 Dose: 10 ml Documented by: Trazodone HCl (Trazodone) 100 mg PO BEDTIME [facility] Last Admin: 04/01/20 21:39 Dose: 100 mg Documented by: Discontinued Medications Albuterol/Ipratropium (Duoneb 3.0-0.5 Mg/3 Ml) 3 ml NEB QID [facility] Last Admin: 03/31/20 05:18 Dose: 3 ml Documented by: Enoxaparin Sodium (Lovenox) 30 mg SUBCUT DAILY [facility] Last Admin: 04/01/20 08:36 Dose: 30 mg Documented by: Sodium Chloride (Normal Saline) 1,000 mls @ 500 mls/hr IV .BOLUS ONE Stop: 03/31/20 03:43 Last Admin: 03/31/20 02:05 Dose: 500 mls/hr Documented by: Vancomycin HCl 1 gm/ Sodium (Chloride) 250 mls @ 167 mls/hr IV STAT ONE Stop: 03/31/20 04:16 Last Admin: 03/31/20 03:10 Dose: 167 mls/hr Documented by: Ceftriaxone Sodium 1 gm/ (Sodium Chloride) 50 mls @ 100 mls/hr IV STAT ONE Stop: 03/31/20 03:16 Last Admin: 03/31/20 03:07 Dose: 100 mls/hr Documented by: Sodium Chloride (Normal Saline) 1,000 mls @ 125 mls/hr IV ASDIRECTED [facility] Last Admin: 03/31/20 14:53 Dose: 125 mls/hr Documented by: Potassium Chloride 20 meq/Lidocaine HCl 2 ml/ Sodium Chloride 112 mls @ 50 mls/hr IV Q2H [facility] Stop: 03/31/20 08:59 Last Admin: 03/31/20 05:50 Dose: Not Given Documented by: Piperacillin Sod/Tazobactam (Sod 2.25 gm/ Sodium Chloride) 50 mls @ 100 mls/hr IV Q6H [facility] Last Admin: 03/31/20 05:12 Dose: 100 mls/hr Documented by: Potassium Chloride 20 meq/ (Premix) 100 mls @ 50 mls/hr IV ONETIME ONE Stop: 03/31/20 07:19 Last Admin: 03/31/20 05:47 Dose: 50 mls/hr Documented by: Potassium Chloride 20 meq/Lidocaine HCl 2 ml/ Sodium Chloride 112 mls @ 56 mls/hr IV ONETIME ONE Stop: 03/31/20 10:59 Last Admin: 03/31/20 09:41 Dose: 56 mls/hr Documented by: Sodium Chloride (Normal Saline) 1,000 mls @ 50 mls/hr IV ASDIRECTED [facility] Last Admin: 04/02/20 03:17 Dose: 50 mls/hr Documented by: Lidocaine HCl (Xylocaine-Mpf 1%) 5 ml INJECT ONETIME ONE Stop: 03/31/20 05:23 Last Admin: 03/31/20 05:46 Dose: 5 ml Documented by: Potassium Chloride (Klor-Con M20) 40 meq PO ONETIME ONE Stop: 03/31/20 09:01 Last Admin: 03/31/20 09:58 Dose: 40 meq Documented by: Sodium Chloride (Saline Flush) 10 ml FLUSH ASDIRECTED PRN PRN Reason: Keep Vein Open Last Admin: 03/31/20 03:14 Dose: 10 ml Documented by: - Exam Quality Assessment: Supplemental Oxygen, DVT Prophylaxis General: Alert, Mild Distress. No: Oriented, Cooperative Lungs: Normal Respiratory Effort, Rales, Rhonchi. No: Crackles, Wheezing Cardiovascular: Regular Rate, Regular Rhythm, No Murmurs GI/Abdominal Exam: Soft, Non-Tender, No Organomegaly, No Distention Extremities: Non-Tender, No Pedal Edema Sepsis Event Note - Evaluation Sepsis Screening Result: No Definite Risk - Focused Exam Vital Signs: Vital Signs Temp Pulse Resp BP Pulse Ox Pulse Ox 04/02/20 11:00 96.8 F L 77 18 93/63 97 04/02/20 10:46 73 04/02/20 09:00 97 04/02/20 07:01 77 04/02/20 07:00 97.3 F 74 18 127/64 94 L - Problem List Review Problem List Initiated/Reviewed/Updated: Yes - My Orders Last 24 Hours: My Active Orders 04/02/20 15:05 Convert IV to Saline Lock [OM.PC] Routine 04/03/20 05:00 BASIC METABOLIC PANEL,BMP [CHEM] Timed CBC WITH AUTO DIFF [HEME] Timed - Plan Plan:: ASSESSMENT AND PLAN - Aspiration pneumonia/pneumonitis-stable over the last 24 hours with no further episodes of aspiration. She is tolerating a soft mechanical diet -Antibiotic coverage with Pip/Tazo -Saline lock IV -Supplement oxygen -Follow-up cultures -Reassess swallowing status now that she is more alert Acute cystitis without hematuria-urine and blood cultures have grown pansensitive E. coli. Other set of blood cultures growing gram-positive cocci and gram-positive kristina, likely representing contamination. -Antibiotics as above -Follow-up urine culture Hypokalemia-resolved Multiple sclerosis-significant disability because of her disease including neurogenic bladder. -Continue home medications Dementia with agitation -Melatonin 9 mg p.o. nightly -Haldol 1 mg IV every 2 hours as needed Maintenance issues - - DVT prophylaxis -enoxaparin - GI prophylaxis -PPI - Nutrition -regular diet - Peng catheter -not indicated CODE STATUS -full code per advance directive Admission justification -this patient will be admitted for inpatient services and is medically appropriate meeting medical necessity for inpatient admission as outlined in my documentation. I reasonably expect the patient will require inpatient services that span a period time over 2 midnights. I reasonably expect this patient to be discharged or transferred within 96 hours [facility] Disposition -I would anticipate discharge back to the long term after the hospital stay Primary care physician -Dr. Jarad Vazquez
[2020-04-02] MEDS: traZODone 50 MG Tab PO SCH (20:54)
[2020-04-02] MEDS: Simvastatin 20 MG Tab PO SCH (20:54)
[2020-04-02] MEDS: Melatonin 3 MG Tab PO SCH (20:54)
[2020-04-02] MEDS: Haloperidol Lactate 5 MG/ML SDV IVPUSH PRN (21:06)
[2020-04-03] MEDS: Piperacillin/Tazobactam/Dext 2.25 GM in Premix Bag 1 BAG IV SCH ×2 (00:12→05:11)
[2020-04-03] MEDS: Albuterol/Ipratropium 3.0-0.5 MG/3 ML Neb Soln NEB SCH ×3 (00:13→10:55)
[2020-04-03] MEDS: Sodium Chloride 0.9% 1,000 ML IV SCH (00:15)
[2020-04-03] MEDS: Oxybutynin 5 MG Tab PO SCH ×2 (09:52→10:00)
[2020-04-03] MEDS: Baclofen 10 MG Tab PO SCH ×2 (09:52→10:00)
[2020-04-03] MEDS: busPIRone 10 MG Tab PO SCH ×2 (09:52→10:00)
[2020-04-03] MEDS: Sertraline 25 MG Tab PO SCH ×2 (09:52→10:00)
[2020-04-03] MEDS: Polyethylene Glycol 3350 Powder 17 GM Packet PO SCH (09:53)
[2020-04-03] MEDS: Aspirin 81 MG Tab.EC PO SCH (10:00)
[2020-04-03] MEDS: Lactobacillus Rhamnosus GG (Probiotic) Cap PO SCH (10:00)
[2020-04-03] MEDS: Pantoprazole 40 MG Tab.CR PO SCH (10:00)
--- NOTE | 2020-04-03 11:22 | PCM.DCSUM1 ---
Discharge Summary - Hospital Course Brief History: Ms. Carey is a 80-year-old woman who was admitted through the emergency department with weakness and decreased level of consciousness secondary to pneumonia and sepsis. - Discharge Data Discharge Date: 04/03/20 Discharge Disposition: DC/Tfer to SNF 03 Condition: - Referral to [facility] Primary Care Physician: Jarad Vazquez MD - Discharge Diagnosis/Problem(s) (1) Sepsis SNOMED Code(s): 06111598 ICD Code: A41.9 - SEPSIS, UNSPECIFIED ORGANISM Status: Acute Priority: High Current Visit: Yes Qualifiers: Sepsis type: sepsis due to unspecified organism Sepsis acute organ dysfunction status: with acute organ dysfunction Severe sepsis acute organ dysfunction type: acute respiratory failure Acute respiratory failure type: with hypoxia Severe sepsis shock status: without septic shock Qualified Code(s): A41.9 - Sepsis, unspecified organism; R65.20 - Severe sepsis without septic shock; J96.01 - Acute respiratory failure with hypoxia (2) Aspiration pneumonia due to food (regurgitated) SNOMED Code(s): 97049487 ICD Code: J69.0 - PNEUMONITIS DUE TO INHALATION OF FOOD AND VOMIT Status: Acute Priority: High Current Visit: Yes Qualifiers: Laterality: right Lung location: lower lobe of lung Qualified Code(s): J69.0 - Pneumonitis due to inhalation of food and vomit (3) Hypokalemia SNOMED Code(s): 27324807 ICD Code: E87.6 - HYPOKALEMIA Status: Acute Priority: Medium Current Visit: Yes (4) Urinary tract infection SNOMED Code(s): 37974077 ICD Code: N39.0 - URINARY TRACT INFECTION, SITE NOT SPECIFIED Status: Acute Priority: High Current Visit: Yes Qualifiers: Urinary tract infection type: acute cystitis Hematuria presence: without hematuria Qualified Code(s): N30.00 - Acute cystitis without hematuria (5) Acute respiratory failure with hypoxia SNOMED Code(s): 74975357, 992859323 ICD Code: J96.01 - ACUTE RESPIRATORY FAILURE WITH HYPOXIA Status: Acute C urrent Visit: Yes (6) Multiple sclerosis, secondary progressive SNOMED Code(s): 734858021 ICD Code: G35 - MULTIPLE SCLEROSIS Status: Chronic Priority: Medium Current Visit: Yes - Patient Summary/Data Consults: Consultations 03/31/20 09:58 Consult to Speech Language Pathology [[employer] Evaluation and Treatment] [CONS] Routine Please Evaluate and Treat [employer] Reason for Consult: aspiration This query below is only for informational purposes and is not editable. Admission Diagnosis/Problem: Aspiration pneumonia Hospital Course: Ms. Carey presented to the emergency room after staff at the senior care noted that she was hypoxic. [facility] notes report that she had a large emesis earlier in the evening and has been having some respiratory difficulty since that time. History is a little bit difficult to gather but Samira tells me that she feels fine right now. She is a senior care resident because of her end-stage multiple sclerosis and dementia. Work-up in the emergency room revealed evidence for urinary tract infection as well as probable aspiration pneumonia, hypoxic respiratory failure and sepsis. She received vigorous IV fluid replacement while in the emergency department appropriate for management of sepsis. Blood and urine cultures were obtained and she was started on broad spectrum IV antibiotic therapy. On admission she was placed on IV Zosyn for management of probable aspiration as well as urinary tract infection. She remained confused and intermittently agitated during her hospital stay. After admission it became very apparent that she was having difficulty with aspiration on attempted eating. Video swallowing study was obtained and because of lethargy she was unable to cooperate and really showed no swallowing effort. She was also seen and evaluated by speech pathology and prior to discharge they were able to reassess. They recommended mechanical soft diet with honey thickened liquids. Urine culture grew out pansensitive E. coli as well as one of the blood cultures. Other blood culture grew out gram-positive cocci and gram positive kristina these were felt to represent contaminants. She will be discharged back to the senior care with an additional 5 days of oral antibiotic therapy with Augmentin 875 twice daily. Activity will be as tolerated and dietary recommendations will be as noted above. - Patient Instructions Diet: Usual Diet as Tolerated Activity: As Tolerated Other/Special Instructions: See dietary instructions for management of aspiration. - Discharge Plan *PRESCRIPTION DRUG MONITORING PROGRAM REVIEWED*: Not Applicable *COPY OF PRESCRIPTION DRUG MONITORING REPORT IN PATIENT CACHORRO: Not Applicable Prescriptions/Med Rec: Amoxicillin/Potassium Clav [Augmentin 875-125 Tablet] 1 each PO BID #10 tablet Lactobacillus Rhamnosus GG [Culturelle] 1 cap PO BID #60 cap Home Medications: Home Meds Acetaminophen [Tylenol Arthritis Pain] 650 mg PO Q6HR 09/08/18 [History] Alum Hydrox/Mag Hydrox/Simeth [Maalox Advanced] 30 ml PO ASDIRECTED PRN 09/08/18 [History] Aspirin [Halfprin] 81 mg PO DAILY 09/08/18 [History] Baclofen 10 mg PO TID 09/08/18 [History] Bisacodyl [Gentle Laxative] 10 mg RC ASDIRECTED PRN 09/08/18 [History] Calcium Carbonate/Vitamin D3 [Calcium Carbonate/Vitamin D 600 MG-200 Unit] 1 tab PO DAILY 09/08/18 [History] Dextromethorphan/guaiFENesin [Robitussin DM] 10 ml PO ASDIRECTED PRN 09/08/18 [History] Docusate Sodium 100 mg PO DAILY 09/08/18 [History] Loperamide [Imodium] 4 mg PO TID PRN 09/08/18 [History] Lutein/Minerals/Vit A,C & E [Ocuvite] 1 tab PO BID 09/08/18 [History] Magnesium Hydroxide [Milk of Magnesia] 30 ml PO TID PRN 09/08/18 [History] Multivitamin with Minerals [Multiple Vitamin] 1 tab PO DAILY 09/08/18 [History] Oxybutynin Chloride [Ditropan Xl] 5 mg PO DAILY 09/08/18 [History] Simvastatin 10 mg PO BEDTIME 09/08/18 [History] polyethylene glycoL 3350 [Polyethylene Glycol 3350] 17 gm PO DAILY 09/08/18 [History] Albuterol/Ipratropium [DuoNeb 3.0-0.5 MG/3 ML] 3 ml INH Q6HR PRN 06/15/19 [History] Melatonin 9 mg PO BEDTIME 02/08/20 [History] Sennosides/Docusate Sodium [Senna Plus 8.6-50 mg Tablet] 1 each PO ASDIRECTED 02/08/20 [History] Sertraline HCl 25 mg PO DAILY 02/08/20 [History] busPIRone [Buspar] 10 mg PO TID 02/08/20 [History] traZODone HCl [Trazodone HCl] 100 mg PO BEDTIME 02/08/20 [History] Amoxicillin/Potassium Clav [Augmentin 875-125 Tablet] 1 each PO BID #10 tablet 04/03/20 [Rx] Lactobacillus Rhamnosus GG [Culturelle] 1 cap PO BID #60 cap 04/03/20 [Rx] Referrals: Jarad Vazquez MD [Primary Care Provider] - - Discharge Summary/Plan Comment DC Time >30 min.: No - Patient Data Vitals - Most Recent: Last Vital Signs Temp 97.9 F 04/03/20 02:30 Pulse 87 04/03/20 02:30 Resp 20 04/03/20 02:30 BP 109/77 04/03/20 02:30 Pulse Ox 95 04/03/20 02:30 Weight - Most Recent: 156 lb 4.783 oz I&O - Last 24 hours: Intake & Output 04/02/20 04/03/20 04/03/20 22:59 06:59 14:59 Intake Total 710 667 Balance 710 667 Lab Results - Last 24 hrs: Laboratory Results - last 24 hr 04/03/20 04/03/20 Range/Units 04:41 04:41 WBC 11.8 H (4.5-11.0) K/uL RBC 3.87 (3.30-5.50) M/uL Hgb 10.3 L (12.0-15.0) g/dL Hct 34.1 L (36.0-48.0) % MCV 88 (80-98) fL MCH 27 (27-31) pg MCHC 30 L (32-36) % Plt Count 85 L (150-400) K/uL Neut % (Auto) 87 H (36-66) % Lymph % (Auto) 6 L (24-44) % Callahan % (Auto) 5 (2-6) % Eos % (Auto) 2 (2-4) % Baso % (Auto) 0 (0-1) % Sodium 149 H (140-148) mmol/L Potassium 3.6 (3.6-5.2) mmol/L Chloride 114 H (100-108) mmol/L Carbon Dioxide 23 (21-32) mmol/L Anion Gap 15.6 H (5.0-14.0) mmol/L BUN 21 H (7-18) mg/dL Creatinine 0.9 (0.6-1.0) mg/dL Est Cr Clr Drug Dosing 35.21 mL/min Estimated GFR (MDRD) > 60 (>60) Glucose 85 (74-106) mg/dL Calcium 8.2 L (8.5-10.1) mg/dL MARISEL Results - Last 24 hrs: Microbiology 03/31/20 01:55 Aerobic Blood Culture - Preliminary Blood - Venous - Iv Start Anaerobic Blood Culture - Preliminary 03/31/20 02:00 Aerobic Blood Culture - Preliminary Blood - Arm, Left NO GROWTH AFTER 3 DAYS Anaerobic Blood Culture - Final Escherichia Coli 03/31/20 03:16 Urine Culture - Final Urine, Clean Catch Escherichia Coli Med Orders - Current: Current Medications Acetaminophen (Tylenol) 650 mg PO Q4H PRN PRN Reason: Pain (Mild 1-3)/fever Albuterol (Proventil Neb Soln) 2.5 mg NEB Q4H PRN PRN Reason: Shortness Of Breath/wheezing Albuterol/Ipratropium (Duoneb 3.0-0.5 Mg/3 Ml) 3 ml NEB QIDRT [facility] Last Admin: 04/03/20 07:14 Dose: 3 ml Documented by: Aspirin (Halfprin) 81 mg PO DAILY [facility] Last Admin: 04/03/20 10:00 Dose: Not Given Documented by: Baclofen (Lioresal) 10 mg PO TID [facility] Last Admin: 04/03/20 10:00 Dose: Not Given Documented by: Buspirone HCl (Buspar) 10 mg PO TID [facility] Last Admin: 04/03/20 10:00 Dose: Not Given Documented by: Guaifenesin/Dextromethorphan (Robitussin Dm) 10 ml PO Q4H PRN PRN Reason: Cough Haloperidol Lactate (Haldol) 1 mg IVPUSH Q2H PRN PRN Reason: Agitation Last Admin: 04/02/20 21:06 Dose: 1 mg Documented by: Piperacillin/Tazobactam/ (Dextrose 2.25 gm/ Premix) 50 mls @ 100 mls/hr IV Q6H [facility] Last Admin: 04/03/20 05:11 Dose: 100 mls/hr Documented by: Lactobacillus Rhamnosus (Culturelle) 1 cap PO BID [facility] Last Admin: 04/03/20 10:00 Dose: Not Given Documented by: Lorazepam (Ativan) 0.5 mg IVPUSH Q4H PRN PRN Reason: Nausea/Vomiting Last Admin: 04/02/20 21:41 Dose: 0.5 mg Documented by: Magnesium Hydroxide (Milk Of Magnesia) 30 ml PO Q12H PRN PRN Reason: Constipation Melatonin (Melatonin) 9 mg PO BEDTIME [facility] Last Admin: 04/02/20 20:54 Dose: 9 mg Documented by: Ondansetron HCl (Zofran) 4 mg IV Q6H PRN PRN Reason: Nausea/Vomiting Ondansetron HCl (Zofran Odt) 4 mg PO Q6H PRN PRN Reason: Nausea able to take PO Oxybutynin Chloride (Oxybutynin) 2.5 mg PO BID [facility] Last Admin: 04/03/20 10:00 Dose: Not Given Documented by: Pantoprazole Sodium (Protonix) 40 mg PO ACBREAKFAST [facility] Last Admin: 04/03/20 10:00 Dose: Not Given Documented by: Polyethylene Glycol (Miralax) 17 gm PO DAILY [facility] Last Admin: 04/03/20 09:53 Dose: Not Given Documented by: Senna/Docusate Sodium (Senna Plus) 1 tab PO BID PRN PRN Reason: Constipation Sertraline HCl (Zoloft) 25 mg PO DAILY [facility] Last Admin: 04/03/20 10:00 Dose: Not Given Documented by: Simvastatin (Zocor) 10 mg PO BEDTIME [facility] Last Admin: 04/02/20 20:54 Dose: 10 mg Documented by: Sodium Chloride (Saline Flush) 10 ml FLUSH ASDIRECTED PRN PRN Reason: Keep Vein Open Last Admin: 03/31/20 02:06 Dose: 10 ml Documented by: Trazodone HCl (Trazodone) 100 mg PO BEDTIME [facility] Last Admin: 04/02/20 20:54 Dose: 100 mg Documented by: Discontinued Medications Albuterol/Ipratropium (Duoneb 3.0-0.5 Mg/3 Ml) 3 ml NEB QID [facility] Last Admin: 03/31/20 05:18 Dose: 3 ml Documented by: Enoxaparin Sodium (Lovenox) 30 mg SUBCUT DAILY [facility] Last Admin: 04/01/20 08:36 Dose: 30 mg Documented by: Sodium Chloride (Normal Saline) 1,000 mls @ 500 mls/hr IV .BOLUS ONE Stop: 03/31/20 03:43 Last Admin: 03/31/20 02:05 Dose: 500 mls/hr Documented by: Vancomycin HCl 1 gm/ Sodium (Chloride) 250 mls @ 167 mls/hr IV STAT ONE Stop: 03/31/20 04:16 Last Admin: 03/31/20 03:10 Dose: 167 mls/hr Documented by: Ceftriaxone Sodium 1 gm/ (Sodium Chloride) 50 mls @ 100 mls/hr IV STAT ONE Stop: 03/31/20 03:16 Last Admin: 03/31/20 03:07 Dose: 100 mls/hr Documented by: Sodium Chloride (Normal Saline) 1,000 mls @ 125 mls/hr IV ASDIRECTED [facility] Last Admin: 03/31/20 14:53 Dose: 125 mls/hr Documented by: Potassium Chloride 20 meq/Lidocaine HCl 2 ml/ Sodium Chloride 112 mls @ 50 mls/hr IV Q2H [facility] Stop: 03/31/20 08:59 Last Admin: 03/31/20 05:50 Dose: Not Given Documented by: Piperacillin Sod/Tazobactam (Sod 2.25 gm/ Sodium Chloride) 50 mls @ 100 mls/hr IV Q6H [facility] Last Admin: 03/31/20 05:12 Dose: 100 mls/hr Documented by: Potassium Chloride 20 meq/ (Premix) 100 mls @ 50 mls/hr IV ONETIME ONE Stop: 03/31/20 07:19 Last Admin: 03/31/20 05:47 Dose: 50 mls/hr Documented by: Potassium Chloride 20 meq/Lidocaine HCl 2 ml/ Sodium Chloride 112 mls @ 56 mls/hr IV ONETIME ONE Stop: 03/31/20 10:59 Last Admin: 03/31/20 09:41 Dose: 56 mls/hr Documented by: Sodium Chloride (Normal Saline) 1,000 mls @ 50 mls/hr IV ASDIRECTED [facility] Last Admin: 04/03/20 00:15 Dose: 50 mls/hr Documented by: Lidocaine HCl (Xylocaine-Mpf 1%) 5 ml INJECT ONETIME ONE Stop: 03/31/20 05:23 Last Admin: 03/31/20 05:46 Dose: 5 ml Documented by: Potassium Chloride (Klor-Con M20) 40 meq PO ONETIME ONE Stop: 03/31/20 09:01 Last Admin: 03/31/20 09:58 Dose: 40 meq Documented by: Sodium Chloride (Saline Flush) 10 ml FLUSH ASDIRECTED PRN PRN Reason: Keep Vein Open Last Admin: 03/31/20 03:14 Dose: 10 ml Documented by: - Exam Quality Assessment: Reports: Supplemental Oxygen, DVT Prophylaxis General: Reports: Alert, Oriented, Cooperative, Mild Distress Lungs: Reports: Normal Respiratory Effort, Rhonchi. Denies: Crackles, Rales, Wheezing Cardiovascular: Reports: Regular Rate, Regular Rhythm, No Murmurs GI/Abdominal Exam: Soft, Non-Tender, No Organomegaly, No Distention Back Exam: Reports: Normal Inspection, Full Range of Motion Extremities: Non-Tender, No Pedal Edema
== END 2020-04-03 14:00 | DRG 871 ==
LOC: JP.ED 01:13 → JP.MS 04:02
PROVIDERS: ADMIT Internal Medicine; ATTEND Hospitalist
DX: A41.9 Sepsis, unspecified organism (principal); N39.0 Urinary tract infection, site not specified; J69.0 Pneumonitis due to inhalation of food and vomit; J96.01 Acute respiratory failure with hypoxia; N30.00 Acute cystitis without hematuria; Z87.891 Personal history of nicotine dependence; J30.9 Allergic rhinitis, unspecified; R65.20 Severe sepsis without septic shock; H35.30 Unspecified macular degeneration; I10 Essential (primary) hypertension; R32 Unspecified urinary incontinence; E87.6 Hypokalemia; G35 Multiple sclerosis; H54.7 Unspecified visual loss; E66.9 Obesity, unspecified; E78.00 Pure hypercholesterolemia, unspecified; M81.0 Age-related osteoporosis without current pathological fracture; F41.9 Anxiety disorder, unspecified; F32.9 Major depressive disorder, single episode, unspecified; N31.9 Neuromuscular dysfunction of bladder, unspecified; F03.90 Unspecified dementia, unspecified severity, without behavioral disturbance, psychotic disturbance, mood disturbance, and anxiety; Z88.5 Allergy status to narcotic agent; Z88.8 Allergy status to other drugs, medicaments and biological substances; Z79.899 Other long term (current) drug therapy; Z79.82 Long term (current) use of aspirin
CPT/HCPCS: 36415; 36600; 71045; 71045-26; 74230; 74230-26; 80048; 80053; 81001; 82803; 83605; 83735; 84484; 85025; 85027; 86140; 87040; 87077; 87086; 87088; 87186; 92610-GN; 92611-GN; 94640; 96365; 96367; 99285; 99285-25; A9270-GY; J0696; J1630; J1650; J2001; J2060; J2543; J3370; J3480; J7030; J7050; J7620-GY